=== PATIENT | female | born 1945 | race African-American/Black ===

== ENCOUNTER 2021-02-25 15:46 | Inpatient (IN) | payer MEDICARE, MEDICAID, SELFPAY ==
[2021-02-25] VITALS (17 sets, daily range): BP systolic 134–156; BP diastolic 54–114; PULSE 64–93; RESP 14–18; TEMP 36.6; O2SAT 92–99; BMI 35.9
--- NOTE | ~2021-02-25 | US_ITS ---
EXAMINATION: US venous doppler LE EXAM DATE: 02/26/2021 11:01 INDICATION: Edematous bilateral leg. Bilateral leg pain. TECHNIQUE: Multiple grayscale, color flow and Doppler images of the lower extremity deep venous syste ms bilaterally were obtained and reviewed. There is no prior study for comparison. FINDINGS: RIGHT SIDE Common femoral: -------- Normal. Profunda femoral: ------- Normal. Femoral: Normal. Popliteal: Probable nonocclusive thrombus. Posterior tibial: --------- Normal. Peroneal: Normal. Gastrocnemius: Not visualized. Soleus: Not visualized. Greater saphenous: ----- Normal. Lesser saphenous: ------ Not visualized. LEFT SIDE Common femoral: -------- Normal. Profunda femoral: ------- Normal. Femoral: Normal. Popliteal: Normal. Posterior tibial: --------- Normal. Peroneal: Normal. Gastrocnemius: Not visualized. Soleus: Not visualized. Greater saphenous: ----- Normal. Lesser saphenous: ------ Not visualized. IMPRESSION: 1. Probable nonocclusive right popliteal DVT. 2. No left DVT. I discussed impression with unit nurse Khurram at 02/26/2021 11:28 CDT. Reviewed, dictated and finalized at location A. IMPRESSION: 1. Probable nonocclusive right popliteal DVT. 2. No left DVT. I discussed impression with IM unit nurse Khurram at 02/26/2021 11:28 CDT.
--- NOTE | ~2021-02-25 | XR_ITS ---
EXAMINATION: XR chest 1V portable EXAM DATE: 02/25/2021 17:13 INDICATION: Swollen legs. CHF. TECHNIQUE: Portable AP frontal chest x-ray was obtained. There is no prior study for comparison. FINDINGS: There is cardiomegaly and pulmonary vascular congestion. There is indistinct reticulation w ith a bibasal predominance which may indicate pulmonary edema. Pneumonia not excludable. Small pleura l effusions. No pneumothorax. There are bony degenerative changes. IMPRESSION: Findings consistent with CHF exacerbation. Pneumonia not excludable. Reviewed, dictated and finalized at location A. IMPRESSION: Findings consistent with CHF exacerbation. Pneumonia not excludabl e.
--- NOTE | 2021-02-25 17:02 | ECG_ITS ---
Measurements Intervals [place] Rate: 85 P: [place]: 0 QRS: -5 QRSD: 138 T: 21 QT: 398 QTc: 475 Interpretive Statements SINUS RHYTHM VENTRICULAR COUPLET, ATRIAL AND VENTRICULAR PREMATURE COMPLEXES RIGHT BUNDLE BRANCH BLOCK BASELINE ARTIFACT- V3-V6 ABNORMAL ECG Electronically Signed On 02-25-2021 20:33:48 CDT by Segundo Bass D.O.
[2021-02-25 17:25] LABS: Basophils Percent Auto 0.1 % (0.2-1.2); Eosinophils Absolute Auto 0.1 K/mm3 (0-0.3); Immature Granulocyte Absolute 0.06 K/mm3 (0.00-0.031); Immature Granulocyte Percent A 0.9 % (0-0.5); Lymphocytes Absolute Auto 0.58 K/mm3 (0.9-3.2); Lymphocytes Percent Auto 8.3 % (18.3-44.2); Mean Corpuscular HGB Conc 30.3 g/dl (32-36); Mean Corpuscular Hemoglobin 25.4 pg (26-34); Mean Corpuscular Volume 83.8 fl (80-100); Mean Platelet Volume 11.4 fl (7.4-10.4); Monocytes Absolute Auto 0.7 K/mm3 (0.1-0.6); Monocytes Percent Auto 9.7 % (2.6-8.5); Neutrophils Absolute Auto 5.6 K/mm3 (1.3-6.7); Platelet Count Result 168 k/mm3 (150-375); Red Blood Count 3.94 M/mm3 (4.2-5.4); Red Cell Distribution Width 17.2 % (11.5-14.5)
[2021-02-25] MEDS: FUROSEMIDE INJ 40 MG/4 ML VIAL IV PUSH (17:33)
[2021-02-25 17:36] LABS: Alanine Aminotransferase 19 U/L (4-35); Alkaline Phosphatase 64 U/L (38-126); Anion Gap 5 mmol/L (8-16); Aspartate Amino Transferase 31 U/L (14-36); Bilirubin,Total 0.2 mg/dL (0.2-1.3); Blood Urea Nitrogen 57 mg/dL (7-17); Calcium 8.6 mg/dL (8.4-10.2); Carbon Dioxide 29 mmol/L (22-30); Chloride 106 mmol/L (98-107); Estimated CRCL calculation 36 ml/min; Estimated Glomerular Filt Rate 38; Glucose 123 mg/dL (65-105); Potassium 3.4 mmol/L (3.4-5.0); Sodium 140 mmol/L (137-145)
[2021-02-25 17:39] LABS: INR 0.9; Prothrombin Time 13.1 Seconds (11.1-14.7)
[2021-02-25 17:40] LABS: Partial Thromboplastin Time 29.3 SECONDS (22.3-36.8)
[2021-02-25 17:55] LABS: NT Pro B Type Natriuretic Pept 5660 pg/mL (5-100); Troponin I 0.051 ng/mL (0.000-0.034)
--- NOTE | 2021-02-25 19:19 | ED.GENADULT ---
HPI - General Adult General Chief complaint: Extremity Problem,Nontraumatic Stated complaint: fkuid retention Time Seen by Provider: 02/25/21 16:56 Source: patient, EMS, RN notes reviewed and old records reviewed Mode of arrival: EMS Limitations: no limitations History of Present Illness HPI narrative: Patient is a 76-year-old female who presents to emergency department for evaluation of fluid retention over the course of the last several days has been gaining weight halfway noted that she had gained 10 pounds in the last couple of days and recently increased her 40 mg of Lasix to 80 orally over the last couple of days had discussion with the nurse practitioner from the halfway she is unable to add much history on the patient does note that the patient has history of diastolic heart failure atrial fibrillation. Patient on arrival has no complaints denies any pain is bedridden. Patient notes that she only sees wound care and primary care at the halfway. Patient notes that she has had chronic fluid retention issues in the past requiring diuresis Related Data Allergies Allergy/AdvReac Type Severity Reaction Status Date / Time codeine Allergy Nausea Verified 02/25/21 16:03 Review of Systems Review of Systems: All systems reviewed & are unremarkable except as noted in HPI and below PMFSH Past Medical History Medical History (Updated 02/25/21 @ 19:29 by Freeman Love PA-C) Anemia Atrial fibrillation Chronic ulcer of buttock Diastolic heart failure GI bleeding Hyperlipidemia Hypertension MRSA (methicillin resistant staph aureus) culture positive Obesity Restless leg syndrome Social History Social History (Updated 02/25/21 @ 19:23 by Freeman Love PA-C) Smoking status: Never smoker Living arrangements: halfway Exam Narrative: Exam Narrative: GENERAL: Chronically ill-appearing, obese, and in no acute distress. HEAD: Normocephalic, atraumatic. EYES: PERRLA and EOMI. ENT: Nares clear, no rhinorrhea or epistaxis. Mucous membranes moist. NECK: Supple. No adenopathy or masses. No carotid bruits or JVD CHEST: Clear to auscultation. No respiratory distress. Coarse breath sounds throughout HEART: Regular rate and rhythm. No murmur heard. Normal peripheral pulses. ABDOMEN: Soft, nontender, nondistended EXTREMITIES: Normal range of motion. 4+ edema lower extremities SKIN: Warm, dry, no rash. NEURO: No focal deficits. Alert and oriented x3. Cranial nerves II through XII grossly intact PSYCH: Normal mood and affect. Course Course Emergency Course: Patient evaluated the emergency department with likely heart failure given her history was given Lasix will be brought into the hospital placed in the IMU and will be consulted on by the cardiology and hospitalist service will admit the patient patient hemodynamically stable with ABCs and vital signs stable at this time Consultations Consultation #1: Discussed case with cardiology randy Ramirez who will consult on patient recommends twice daily Lasix 40 mg IV. Discussed case with Luana the hospitalist who is agreed to accept the patient Date: 02/25/21 Time: 19:28 Vital Signs Vital signs: Vital Signs Pulse Rate 77 02/25/21 15:50 Respiratory Rate 17 02/25/21 15:50 Blood Pressure 145/59 H 02/25/21 15:50 Pulse Oximetry 98 02/25/21 15:50 Pulse Rate 77 02/25/21 17:18 Respiratory Rate 17 02/25/21 17:18 Blood Pressure 134/54 L 02/25/21 16:46 Pulse Oximetry 99 02/25/21 17:18 Medical Decision Making [facility] Narrative Medical decision making narrative: Patient with diastolic heart failure will be brought in the hospital for diuresis patient agrees with this plan she denies any pain Vital Signs Vital Signs: Vital Signs Pulse Rate 77 02/25/21 15:50 Respiratory Rate 17 02/25/21 15:50 Blood Pressure 145/59 H 02/25/21 15:50 Pulse Oximetry 98 02/25/21 15:50 Pulse Rate 77 02/25/21 17:18 Respiratory Rate 17
[2021-02-25 20:16] LABS: Cholesterol 115 mg/dL (0-200); HDL Direct 43 mg/dL; Triglycerides 58 mg/dL (<150)
[2021-02-25 20:26] LABS: LDL Cholesterol Direct 61 mg/dL
--- NOTE | 2021-02-25 20:29 | PC.NURSE ---
MICHOACANOAR faxed to IMU department from the ED at 1999.
[2021-02-25 20:32] LABS: Troponin I 0.048 ng/mL (0.000-0.034)
--- NOTE | 2021-02-25 20:35 | PC.NURSE ---
Report given at 2030 by CRYSTAL Diamond through phone call from the ED. All questions answered and plan of care reviewed. This nurse to resume patient care once patient arrives to the floor.
--- NOTE | 2021-02-25 21:32 | ADMGEN ---
This patient, Tegan Martines, was admitted to IMU Room 231-01 at 2045 from the ED. Patient/family oriented to hospital policies and general routines including ID bracelet, bed and alarms, visiting hours, pain management, procedures, bathroom and other care routines, personal items, smoking policy, room service/diet, and visiting hours. Information on how to activate the Rapid Response Team has been discussed. Patient/Family are encouraged to report perceived risks to care and to ask questions if they do not understand what they are told or what they should do.
[2021-02-25 23:37] LABS: Troponin I 0.045 ng/mL (0.000-0.034)
--- NOTE | 2021-02-25 23:51 | PM.IMHP ---
H&P: HPI History of Present Illness Date/Time: 02/25/21 23:51 this is a 76-year-old female patient who has a history of having congestive heart failure. She resides at care center at [facility]. To the emergency room due to increased weight of 10 lb in the last couple days. She also has some fluid retention over the last several days. She recently had her Lasix increased from 40 mg of Lasix to 80 over the last couple days. The patient stated she has not had any decrease in her swelling. The patient also tells me that she has chronic renal failure. Chest x-ray was read as findings consistent With CHF pneumonia not excludable. Patient denies any fever chills. Although she tells me she is coughing up some fontanez sputum as well some green sputum. She does have some increased swelling to her lower extremities. She has about 4+ pitting edema. IV Lasix was given in the emergency room. Cardiology was consulted. Troponins are all level. Her BNP is 5660. Patient's BUN is 57 creatinine 1.6. Patient is being admitted to observation status on 02/25/2021 date of service. Chief Complaint: Edema Review of Systems Review of Systems: All systems reviewed & are unremarkable except as noted in HPI and below Constitutional: Constitutional: Reports as per HPI and Reports no additional constitutional complaints Eyes: Eyes: Reports as per HPI and Reports no additional eye complaints ENT: Reports system reviewed and no additional complaints, except as documented and Reports Normal hearing present Cardiovascular: Cardiovascular: Reports no additional cardiovascular complaints Respiratory: Respiratory: Reports no additional respiratory complaints and Reports no additional respiratory complaints Gastrointestinal: Gastrointestinal: Reports as per HPI and Reports no additional gastrointestinal complaints Musculoskeletal: Musculoskeletal: Reports no additional musculoskeletal complaints Integumentary/Breasts: Skin/Breast: Reports system reviewed and no additional complaints, except as docu and Reports as per HPI Neurologic: Reports system reviewed and no additional complaints, except as documented, Reports as per HPI and Reports Normal hearing present Psychiatric: Psychiatric: Reports no additional psychiatric complaints and Reports as per HPI Endocrine: Endocrine: Reports no additional endocrine complaints Hematologic/Lymphatic: Hematologic/Lymphatic: Reports no additional hematologic/lymphatic complaints Allergic/Immunologic: Allergic/Immunologic: Reports no additional allergic/immunologic complaints [facility] Past Medical History Medical History (Updated 02/26/21 @ 00:16 by Luana Mi NP) Anemia Atrial fibrillation Chronic GERD Chronic renal failure, stage 3 (moderate) Chronic ulcer of buttock Diastolic heart failure GI bleeding Hyperlipidemia Hypertension MRSA (methicillin resistant staph aureus) culture positive Obesity Restless leg syndrome Sarcoidosis Surgical History Surgical History (Updated 02/26/21 @ 00:02 by Luana Mi NP) H/O bilateral cataract extraction H/O hernia repair H/O tubal ligation History of bowel resection History of partial hysterectomy Family History Family History (Updated 02/26/21 @ 00:18 by Luana Mi NP) Mother Stomach cancer Social History Social History (Updated 02/26/21 @ 00:04 by Luana Mi NP) Social History: The patient is . She has 2 children. She resides at care center at [facility]. She is retired from the [employer] office. Lifelong nonsmoker. Does not use any alcohol marijuana or illicit drugs. She is a DNR. Smoking status: Never smoker Second hand tobacco smoke exposure: No Living arrangements: alf Meds Home Medications and Allergies Allergies Allergy/AdvReac Type Severity Reaction Status Date / Time codeine Allergy Nausea Verified 02/25/21 16:03 Vital Signs Vital Signs - 24 hr 02/25/21 15:50 02/25/21
[2021-02-26] VITALS (15 sets, daily range): BP systolic 128–173; BP diastolic 63–87; PULSE 72–106; RESP 14–22; TEMP 36.3–36.6; O2SAT 96–100; BMI 35.8
--- NOTE | 2021-02-26 | ECHO_ITS ---
Patient Info Name: Tegan Martines Age: 76 years : 1945 Gender: Female Ht: 68 in Wt: 236 lbs BSA: 2.31 m2 HR: 70 bpm BP: 150 / 70 mmHg Technical Quality: Good Exam Date: 02/26/2021 9:20 AM Exam Location: [facility] Patient Status: Inpatient Admit Date: 02/25/2021 Staff Ordering Physician: Mamadou Lake MD Childhood Development Teacher: Armani Leonardo, HALLIE, RT Attending Provider: Dianne John MD Exam Type: CA echo doppler color flow Study Info Indications I50.9 - Heart failure, unspecified Complete two-dimensional, color flow and Doppler transthoracic echocardiogram is performed. Strain analysis performed. Summary 1. Complete two-dimensional, color flow and Doppler transthoracic echocardiogram is performed. 2. Left atrial chamber dimension is moderately enlarged. 3. Right atrial chamber dimension is mildly enlarged. 4. The mitral valve has thickened leaflets. 5. There is mild mitral valve regurgitation. 6. mild thickening of the aortic valve leaflets. 7. Left ventricular chamber dimension is normal. 8. Left ventricular wall thickness is mildly increased. 9. Left ventricular systolic function is hyperdynamic with an estimated ejection fraction of 6065.0 %. 10. Grade I diastolic dysfunction of the left ventricle (impaired relaxation pattern). 11. There is mild to moderate tricuspid valve regurgitation. 12. Right ventricular chamber dimension is moderately enlarged. 13. Right ventricular systolic function is reduced. 14. Estimated pulmonary arterial systolic pressure is 38 mmHg. Left Ventricle Left ventricular wall thickness is mildly increased. Left ventricular chamber dimension is normal. Left ventricular systolic function is hyperdynamic with an estimated ejection fraction of 6065.0 %. Grade I diastolic dysfunction of the left ventricle (impaired relaxation pattern). Right Ventricle Right ventricular chamber dimension is moderately enlarged. Right ventricular systolic function is reduced. Left Atria Left atrial chamber dimension is moderately enlarged. Right Atria Right atrial chamber dimension is mildly enlarged. Aortic Valve The aortic valve is trileaflet. mild thickening of the aortic valve leaflets. Mitral Valve The mitral valve has thickened leaflets. There is mild mitral valve regurgitation. Tricuspid Valve There is mild to moderate tricuspid valve regurgitation. Estimated pulmonary arterial systolic pressure is 38 mmHg. Left Ventricular Outflow Tract Name Value Normal LVOT 2D LVOT Diameter 2.0 cm LVOT Doppler LVOT Peak Gradient 4 mmHg LVOT Mean Gradient 2 mmHg LVOT VTI 24 cm LVOT VTI/AV VTI Ratio 0.7 LVOT Stroke Volume 78 ml LVOT CO 6.3 l/min LVOT CI 2.7 l/min/m2 Mitral Valve Name Value Normal
[2021-02-26 05:07] LABS: Hematocrit 29.3 % (37.0-47.0); Hemoglobin 8.9 g/dL (12.0-15.0); Mean Corpuscular HGB Conc 30.4 g/dl (32-36); Mean Corpuscular Hemoglobin 25.3 pg (26-34); Mean Corpuscular Volume 83.2 fl (80-100); Platelet Count Result 150 k/mm3 (150-375); Red Blood Count 3.52 M/mm3 (4.2-5.4); Red Cell Distribution Width 16.8 % (11.5-14.5); White Blood Count 4.4 K/mm3 (4.5-10.0)
[2021-02-26 05:32] LABS: Anion Gap 3 mmol/L (8-16); Blood Urea Nitrogen 53 mg/dL (7-17); Calcium 8.1 mg/dL (8.4-10.2); Carbon Dioxide 30 mmol/L (22-30); Chloride 108 mmol/L (98-107); Estimated CRCL calculation 35 ml/min; Estimated Glomerular Filt Rate 38; Glucose 93 mg/dL (65-105); Magnesium 2.3 mg/dL (1.6-2.3); Potassium 3.1 mmol/L (3.4-5.0); Sodium 141 mmol/L (137-145)
[2021-02-26] MEDS: ENOXAPARIN 40 MG/0.4 ML SYRINGE SUB-Q (08:26)
[2021-02-26] MEDS: FUROSEMIDE INJ 40 MG/4 ML VIAL IV PUSH ×2 (08:26→16:13)
--- NOTE | 2021-02-26 09:33 | PM.CNCAR ---
Assessment and Plan Assessment and plan (1) Chronic renal failure, stage 3 (moderate): Code(s): N18.30 - Chronic kidney disease, stage 3 unspecified Status: Chronic Assessment and Plan: PC and nephrology fu (2) Diastolic heart failure: Code(s): I50.30 - Unspecified diastolic (congestive) heart failure Status: Chronic Assessment and Plan: ECHO preliminary result: normal LV sytolic function, LVH cont gentle diuresis monitor electrolytes and kidney function (3) Hypertension: Code(s): I10 - Essential (primary) hypertension Status: Chronic Assessment and Plan: Initially elevated now better controlled will adjust meds (4) Chronic GERD: Code(s): K21.9 - Gastro-esophageal reflux disease without esophagitis Status: Chronic (5) Elevated troponin: Code(s): R77.8 - Other specified abnormalities of plasma proteins Status: Acute Assessment and Plan: pt was found to have borderline troponin no acute EKG changes no CP flat pattern probably due to underlying CRI (Cr 1.6). (6) Restless leg syndrome: Code(s): G25.81 - Restless legs syndrome Status: Chronic Assessment and Plan: Thank you for consult. Will fu History of Present Illness History of Present Illness Consult date/time: 02/26/21 Mrs. Martines is a pleasant 76 y/o AAF with PMH of HTN who presented to [facility] due to LE edema. Pt states thatshe does have chronic LE edema but recently it was getting worse. She denies CP or SOB. States that her BP was found to be elevated. Previously was admitted to [facility] few months ago due to LLE edema. Had ECHO and stress test at that time which were fine per pt. Was seen by personnel psychologist in hospital but denies fu in office. Pt denies hx of CAD, CHF or CVA. Pt was seen and examined, chart was reviewed, case d/w pt;s nurse. Reason For Visit: CHF exacerbation, acute on chronic heart failure Review of Systems Review of Systems: All systems reviewed & are unremarkable except as noted in HPI and below Constitutional: Constitutional: Reports as per HPI Eyes: Eyes: Reports as per HPI ENT: Reports system reviewed and no additional complaints, except as documented and Reports as per HPI Cardiovascular: Cardiovascular: Reports as per HPI Respiratory: Respiratory: Reports as per HPI Gastrointestinal: Gastrointestinal: Reports as per HPI Genitourinary: Genitourinary: Reports as per HPI Musculoskeletal: Musculoskeletal: Reports as per HPI [facility] Past Medical History Medical History (Updated 02/26/21 @ 00:16 by Luana Mi NP) Anemia Atrial fibrillation Chronic GERD Chronic renal failure, stage 3 (moderate) Chronic ulcer of buttock Diastolic heart failure GI bleeding Hyperlipidemia Hypertension MRSA (methicillin resistant staph aureus) culture positive Obesity Restless leg syndrome Sarcoidosis Surgical History Surgical History (Updated 02/26/21 @ 00:02 by Luana Mi NP) H/O bilateral cataract extraction H/O hernia repair H/O tubal ligation History of bowel resection History of partial hysterectomy Family History Family History Mother Stomach cancer Social History Social History (Updated 02/26/21 @ 00:04 by Luana Mi NP) Social History: The patient is . She has 2 children. She resides at [facility]. She is retired from the [place] [employer]. Lifelong nonsmoker. Does not use any alcohol marijuana or illicit drugs. She is a DNR. Smoking status: Never smoker Second hand tobacco smoke exposure: No Alcohol intake: never Substance use: never Substance use type: does not use Living arrangements: [facility]p Gender identity (if verbalized by the patient): Female Spiritual care concerns: No Meds Home Medications and Allergies Home Medications Med
[2021-02-26] MEDS: POTASSIUM CHLORIDE 20 MEQ PACKET (FOR LIQUID) PO (12:06)
[2021-02-26] MEDS: MAGNESIUM OXIDE 400 MG TABLET PO (12:08)
[2021-02-26] MEDS: SILVERGEL (ELTA) 45 ML 1 APPLIC TOPICAL ×2 (14:45→19:00)
--- NOTE | 2021-02-26 17:05 | PM.IMPN ---
Progress Note: A&P Assessment and Plan (1) Diastolic heart failure: Code(s): I50.30 - Unspecified diastolic (congestive) heart failure Status: Chronic (2) Chronic GERD: Code(s): K21.9 - Gastro-esophageal reflux disease without esophagitis Status: Chronic (3) Restless leg syndrome: Code(s): G25.81 - Restless legs syndrome Status: Chronic (4) Hypertension: Code(s): I10 - Essential (primary) hypertension Status: Chronic (5) Hyperlipidemia: Code(s): E78.5 - Hyperlipidemia, unspecified Status: Chronic (6) Chronic ulcer of buttock: Code(s): L98.419 - Non-pressure chronic ulcer of buttock with unspecified severity Status: Chronic (7) Elevated troponin: Code(s): R77.8 - Other specified abnormalities of plasma proteins Status: Acute (8) Chronic renal failure, stage 3 (moderate): Code(s): N18.30 - Chronic kidney disease, stage 3 unspecified Status: Chronic Additional Plan 02/25/21 An echo has been ordered for the patient. I do not see a current home medication list. Patient was placed on IV Lasix b.i.d.. Will also do venous Dopplers and she has bilateral edema. She has 4+ pitting edema to her lower extremities. She said she has had a weight gain of 10 lb for last couple days. Strict I&O and she has a Hines catheter. The patient stated that she was told that she does have chronic renal failure. I am not sure her baseline is since she is not had any of her medical problems addressed here in the past. The patient tells me that she typically goes to [facility]. Troponins flat, could be related to her chronic renal failure or could be related to the congestive heart failure. Ulceration; the patient has a history of sarcoidosis and had a nodule on her buttocks that just never healed. Cardiology consulted for CHF 02/26/21 cont diuresis for CHF, cont wound care, chronic diseases otherwise controlled, cont current care, home meds continued Subjective Date/time seen: 02/26/21 17:05 pt doing ok complains of L breast and L abd swelling, thinks its because she always lays on that side. no other complaints Exam Narrative: Exam Narrative: GEN: NAD, AAOx3, cooperative, obese HEENT: NCAT, MMM, EOMI Neck: no JVD Heart: S1S2 RRR Lungs: CTA B/l Abd: soft, NT, ND, bowel sounds normoactive edema Ext: moves all, no cyanosis, no clubbing, 3+ edema Neuro: CN inact AAOx3 neuro exam limited Psych: mood and affect congruent Objective Data Vital Signs Vital Signs: Vital Signs - 24 hr 02/25/21 17:18 02/25/21 19:01 02/25/21 19:16 Temperature Pulse Rate 77 76 68 Respiratory Rate 17 14 15 Blood Pressure 134/78 141/69 H Pulse Oximetry 99 98 99 02/25/21 19:31 02/25/21 19:46 02/25/21 20:01 Temperature Pulse Rate 72 87 64 Respiratory Rate 15 15 15 Blood Pressure 143/59 H 139/86 136/60 Pulse Oximetry 98 97 98 02/25/21 20:16 02/25/21 20:31 02/25/21 20:41 Temperature Pulse Rate 74 69 79 Respiratory Rate 14 14 Blood Pressure 138/81 135/69 Pulse Oximetry 97 98 02/25/21 20:45 02/25/21 22:00 02/26/21 00:00 Temperature 97.9 F Pulse Rate 93 84 80 Respiratory Rate 18 Blood Pressure 155/78 H Pulse Oximetry 98 02/26/21 00:20 02/26/21 02:00 02/26/21 04:00 Temperature 97.9 F 97.9 F Pulse Rate 106 H 88 73 Respiratory Rate 22 H 16 Blood Pressure 168/74 H 150/70 H Pulse Oximetry 96 100 02/26/21 06:00 02/26/21 08:00 02/26/21 10:00 Temperature 97.3 F L Pulse Rate 88 79 98 Respiratory Rate 14 Blood Pressure 173/87 H Pulse Oximetry 100 02/26/21 12:00 02/26/21 14:00 02/26/21 16:00 Temperature 97.6 F 97.4 F L Pulse Rate 98 86 82 Respiratory Rate 16 18 Blood Pressure 128/72 151/65 H Pulse Oximetry 99 96 Intake/Output Intake/Output: Intake & Output 02/23/21 02/24/21 02/25/21 02/26/21 23:59 23:59 23:59 23:59 Intake Total 240 Output Total 700 3950 Balance
[2021-02-26 17:48] LABS: Add Urine Microscopic? YES; Appearance Urine Clear (Clear); Bacteria Urine Trace /hpf; Bilirubin Urine Negative (Negative); Blood Urine 2+ (Negative); Color Urine Straw (Yellow); Glucose Urine UA Negative (Negative); Ketones Urine Negative (Negative); Leukocyte Esterase Ur 2+ LEU/UL (Negative); Mucus Urine Rare /lpf; Nitrate Urine Negative (Negative); Protein Urine Negative (Negative); RBC Urine 51-75 /hpf (0-2); Specific Grav Ur 1.009 (1.001-1.035); Squamous Epithelial Cell Urine Rare /hpf (Few); Urobilinogen Urine Negative mg/dL (<2.0); WBC Urine 21-30 /hpf
[2021-02-26] MEDS: CLINDAMYCIN HCL 150 MG CAP 300 MG PO ×2 (18:51→23:55)
[2021-02-26] MEDS: ACETAMINOPHEN 325 MG TABLET 650 MG PO (18:52)
[2021-02-26] MEDS: SILVER SULFADIAZINE 1% CR 400 GM JAR (*BKC) 1 APPLIC TOPICAL (19:00)
[2021-02-26] MEDS: ENOXAPARIN 120 MG/0.8 ML SYRINGE 110 MG SUB-Q (19:57)
[2021-02-26] MEDS: ATORVASTATIN 40 MG TABLET PO (21:22)
[2021-02-26] MEDS: ESCITALOPRAM OXALATE 10 MG TABLET PO (21:26)
[2021-02-26] MEDS: metroNIDAZOLE 250 MG TABLET 500 MG PO (21:26)
[2021-02-26] MEDS: METOPROLOL TARTRATE 25 MG TABLET 75 MG PO (21:27)
[2021-02-26] MEDS: PANTOPRAZOLE SODIUM IV 40 MG VIAL IV PUSH (21:28)
[2021-02-27] VITALS (18 sets, daily range): BP systolic 128–154; BP diastolic 57–68; PULSE 69–88; RESP 14–22; TEMP 35.7–37.6; O2SAT 95–98
[2021-02-27 05:41] LABS: Basophils Percent Auto 0.5 % (0.2-1.2); Hematocrit 28.7 % (37.0-47.0); Hemoglobin 8.9 g/dL (12.0-15.0); Immature Granulocyte Absolute 0.04 K/mm3 (0.00-0.031); Lymphocytes Absolute Auto 0.77 K/mm3 (0.9-3.2); Lymphocytes Percent Auto 19.2 % (18.3-44.2); Mean Corpuscular Volume 80.6 fl (80-100); Mean Platelet Volume 10.6 fl (7.4-10.4); Monocytes Absolute Auto 0.5 K/mm3 (0.1-0.6); Monocytes Percent Auto 13.5 % (2.6-8.5); Neutrophils Absolute Auto 2.6 K/mm3 (1.3-6.7); Neutrophils Percent Auto 64.8 % (45.5-73.1); Platelet Count Result 158 k/mm3 (150-375); Red Blood Count 3.56 M/mm3 (4.2-5.4); Red Cell Distribution Width 16.6 % (11.5-14.5)
[2021-02-27 05:54] LABS: Anion Gap 4 mmol/L (8-16); Blood Urea Nitrogen 51 mg/dL (7-17); Calcium 8.3 mg/dL (8.4-10.2); Carbon Dioxide 28 mmol/L (22-30); Chloride 108 mmol/L (98-107); Estimated CRCL calculation 46 ml/min; Estimated Glomerular Filt Rate 53; Glucose 85 mg/dL (65-105); Magnesium 2.2 mg/dL (1.6-2.3); Potassium 3.4 mmol/L (3.4-5.0); Sodium 140 mmol/L (137-145)
[2021-02-27] MEDS: CLINDAMYCIN HCL 150 MG CAP 300 MG PO ×3 (06:40→18:50)
[2021-02-27] MEDS: ENOXAPARIN 120 MG/0.8 ML SYRINGE 110 MG SUB-Q (06:40)
[2021-02-27] MEDS: ACETAMINOPHEN 325 MG TABLET 650 MG PO ×3 (07:05→18:52)
[2021-02-27] MEDS: allopurinoL 150 MG TABLET FEED TUBE (09:49)
[2021-02-27] MEDS: FUROSEMIDE 80 MG TABLET PO ×2 (09:49→16:23)
[2021-02-27] MEDS: ASPIRIN 81 MG CHEWABLE TABLET PO (09:49)
[2021-02-27] MEDS: EZETIMIBE 10 MG TABLET PO (09:49)
[2021-02-27] MEDS: GABAPENTIN 100 MG CAPSULE PO (09:50)
[2021-02-27] MEDS: hydrALAZINE HCL 50 MG TABLET 100 MG PO ×3 (09:50→16:24)
[2021-02-27] MEDS: METOPROLOL TARTRATE 25 MG TABLET 75 MG PO ×2 (09:51→20:53)
[2021-02-27] MEDS: metroNIDAZOLE 250 MG TABLET 500 MG PO ×2 (09:51→20:54)
[2021-02-27] MEDS: MAGNESIUM OXIDE 400 MG TABLET PO (09:51)
[2021-02-27] MEDS: predniSONE 20 MG TABLET PO (09:52)
[2021-02-27] MEDS: PANTOPRAZOLE SODIUM IV 40 MG VIAL IV PUSH ×2 (09:52→20:54)
--- NOTE | 2021-02-27 11:07 | PM.PNCARD ---
Progress Note: A&P Assessment and Plan (1) Chronic renal failure, stage 3 (moderate): Code(s): N18.30 - Chronic kidney disease, stage 3 unspecified Status: Chronic Assessment and Plan: PC and nephrology fu (2) Diastolic heart failure: Code(s): I50.30 - Unspecified diastolic (congestive) heart failure Status: Chronic Assessment and Plan: ECHO result: normal LV sytolic function, LVH cont gentle diuresis monitor electrolytes and kidney function (3) Hypertension: Code(s): I10 - Essential (primary) hypertension Status: Chronic Assessment and Plan: Initially elevated now better controlled will adjust meds (4) Chronic GERD: Code(s): K21.9 - Gastro-esophageal reflux disease without esophagitis Status: Chronic (5) Elevated troponin: Code(s): R77.8 - Other specified abnormalities of plasma proteins Status: Acute Assessment and Plan: pt was found to have borderline troponin no acute EKG changes no CP flat pattern probably due to underlying CRI (Cr 1.6). (6) Restless leg syndrome: Code(s): G25.81 - Restless legs syndrome Status: Chronic (7) DVT (deep venous thrombosis): Code(s): I82.409 - Acute embolism and thrombosis of unspecified deep veins of unspecified lower extremity Status: Acute Assessment and Plan: currently she is on Lovenox was switched to Eliquis 10 mg twice a day for 1 week and then cut down to 5 twice a day Subjective Date/time seen: 02/27/21 11:07 She feels better today, no chest pain shortness breath is better, she has leg pain and leg swelling venous Doppler showed DVT Exam Const: General: alert and awake; No acute distress HENMT: Head: normal to inspection and atraumatic Ears: hearing grossly normal bilaterally Face and sinus: normal facial exam Eyes: General: appearance normal, both eyes and all related structures Pupils: Equal, round and reactive pupils present EOM: EOMs intact bilaterally Neck: Neck: normal visual inspection and no JVD Chest: Chest palpation & inspection: normal inspection of the chest Resp: Effort & Inspection: normal respiratory effort and no respiratory distress Auscultation: clear to auscultation bilaterally Cardio: Jugular venous distension: no JVD Rate: regular rate Heart sounds: S1 normal heart sound present, S2 normal heart sound present and no murmurs GI: Inspection: normal to inspection Auscultation: normal bowel sounds Skin: General skin exam: normal color Neuro: Cranial nerves: Yes Equal, round and reactive pupils present Extrem: General: edema (mild efren) and other Objective Data Vital Signs Vital Signs: Vital Signs - 24 hr 02/26/21 12:00 02/26/21 14:00 02/26/21 16:00 Temperature 36.4 C 36.3 C L Pulse Rate 98 86 86 Respiratory Rate 16 18 Blood Pressure 128/72 151/65 H Pulse Oximetry 99 96 02/26/21 18:00 02/26/21 19:23 02/26/21 20:00 Temperature 36.3 C L Pulse Rate 77 97 85 Respiratory Rate 20 Blood Pressure 163/63 H Pulse Oximetry 100 02/26/21 21:27 02/26/21 22:00 02/27/21 00:00 Temperature 36.9 C Pulse Rate 90 81 83 Respiratory Rate 16 Blood Pressure 128/66 Pulse Oximetry 95 02/27/21 02:00 02/27/21 04:00 02/27/21 06:00 Temperature 37.2 C Pulse Rate 69 75 71 Respiratory Rate 14 Blood Pressure 144/63 H Pulse Oximetry 96 02/27/21 08:00 02/27/21 08:39 02/27/21 09:51 Temperature 36.1 C L Pulse Rate 74 70 76 Respiratory Rate 18 Blood Pressure 154/57 H Pulse Oximetry 97 Intake/Output Intake/Output: Intake & Output 02/24/21 02/25/21 02/26/21 02/27/21 23:59 23:59 23:59 23:59 Intake Total 240 340 Output Total 212 0248 1999 [facility] -[phone] Meds/Results Medications: Active Medications Generic Name Dose Route Start Last Admin Trade Name Freq PRN Reason Stop Dose Admin Acetaminophen 650 mg 02/25/21 19:37 02/27/21 07:05 Acetamino
--- NOTE | 2021-02-27 12:33 | PM.IMPN ---
Progress Note: A&P Assessment and Plan (1) DVT (deep venous thrombosis): Code(s): I82.409 - Acute embolism and thrombosis of unspecified deep veins of unspecified lower extremity Status: Acute (2) Chronic renal failure, stage 3 (moderate): Code(s): N18.30 - Chronic kidney disease, stage 3 unspecified Status: Chronic (3) Diastolic heart failure: Code(s): I50.30 - Unspecified diastolic (congestive) heart failure Status: Chronic (4) Chronic GERD: Code(s): K21.9 - Gastro-esophageal reflux disease without esophagitis Status: Chronic (5) Restless leg syndrome: Code(s): G25.81 - Restless legs syndrome Status: Chronic (6) Atrial fibrillation: Code(s): I48.91 - Unspecified atrial fibrillation Status: Chronic (7) Sarcoidosis: Code(s): D86.9 - Sarcoidosis, unspecified Status: Chronic (8) Hypertension: Code(s): I10 - Essential (primary) hypertension Status: Chronic (9) Hyperlipidemia: Code(s): E78.5 - Hyperlipidemia, unspecified Status: Chronic (10) Chronic ulcer of buttock: Code(s): L98.419 - Non-pressure chronic ulcer of buttock with unspecified severity Status: Chronic (11) Elevated troponin: Code(s): R77.8 - Other specified abnormalities of plasma proteins Status: Acute Additional Plan 02/25/21 An echo has been ordered for the patient. I do not see a current home medication list. Patient was placed on IV Lasix b.i.d.. Will also do venous Dopplers and she has bilateral edema. She has 4+ pitting edema to her lower extremities. She said she has had a weight gain of 10 lb for last couple days. Strict I&O and she has a Hines catheter. The patient stated that she was told that she does have chronic renal failure. I am not sure her baseline is since she is not had any of her medical problems addressed here in the past. The patient tells me that she typically goes to [facility]. Troponins flat, could be related to her chronic renal failure or could be related to the congestive heart failure. Ulceration; the patient has a history of sarcoidosis and had a nodule on her buttocks that just never healed. Cardiology consulted for CHF 02/26/21 cont diuresis for CHF, cont wound care, chronic diseases otherwise controlled, cont current care, home meds continued 02/27/21 DVT LMWH to OAC, cardio following, cont diuresis pt -5 to 6L , cont wound care, anticipate transfer back to facility in a day or 2, cont current care, transfer from stepdown to telemetry floor Subjective Date/time seen: 02/27/21 12:33 pt doing ok, no complaints Exam Narrative: Exam Narrative: GEN: NAD, AAOx3, cooperative, obese HEENT: NCAT, MMM, EOMI Neck: no JVD Heart: S1S2 RRR Lungs: CTA B/l Abd: soft, NT, ND, bowel sounds normoactive Ext: moves all, no cyanosis, no clubbing, 2+ edema Neuro: CN inact AAOx3 neuro exam limited Psych: mood and affect congruent Objective Data Vital Signs Vital Signs: Vital Signs - 24 hr 02/26/21 14:00 02/26/21 16:00 02/26/21 18:00 Temperature 97.4 F L Pulse Rate 86 86 77 Respiratory Rate 18 Blood Pressure 151/65 H Pulse Oximetry 96 02/26/21 19:23 02/26/21 20:00 02/26/21 21:27 Temperature 97.4 F L Pulse Rate 97 85 90 Respiratory Rate 20 Blood Pressure 163/63 H Pulse Oximetry 100 02/26/21 22:00 02/27/21 00:00 02/27/21 02:00 Temperature 98.4 F Pulse Rate 81 83 69 Respiratory Rate 16 Blood Pressure 128/66 Pulse Oximetry 95 02/27/21 04:00 02/27/21 06:00 02/27/21 08:00 Temperature 98.9 F Pulse Rate 75 71 76 Respiratory Rate 14 18 Blood Pressure 144/63 H Pulse Oximetry 96 97 02/27/21 08:39 02/27/21 09:51 02/27/21 10:00 Temperature 96.9 F L Pulse Rate 70 76 75 Respiratory Rate 18 Blood Pressure 154/57 H Pulse Oximetry 97 02/27/21 12:23 Temperature 96.2 F L Pulse Rate 74 Respiratory Rate 20 Blood
[2021-02-27] MEDS: SILVER SULFADIAZINE 1% CR 400 GM JAR (*BKC) 1 APPLIC TOPICAL ×2 (16:17→16:51)
[2021-02-27] MEDS: LIDOCAINE 5% PATCH 1 PATCH TRANSDERM ×2 (16:17)
[2021-02-27] MEDS: SILVERGEL (ELTA) 45 ML 1 APPLIC TOPICAL (16:51)
--- NOTE | 2021-02-27 19:29 | ECG_ITS ---
Measurements Intervals [place] Rate: 78 P: NE: 0 QRS: -5 QRSD: 140 T: -13 QT: 395 QTc: 451 Interpretive Statements SINUS RHYTHM WITH SINUS ARRHYTHMIA ATRIAL PREMATURE COMPLEXES RIGHT BUNDLE BRANCH BLOCK BASELINE ARTIFACT- I, III, AVR, AVL ABNORMAL ECG Electronically Signed On 02-28-2021 6:56:33 CDT by Segundo Bass D.O.
[2021-02-27] MEDS: APIXABAN 5 MG TABLET 10 MG PO (20:55)
[2021-02-27] MEDS: ATORVASTATIN 40 MG TABLET PO (20:55)
[2021-02-27] MEDS: ESCITALOPRAM OXALATE 10 MG TABLET PO (21:04)
--- NOTE | 2021-02-27 21:59 | PC.NURSE ---
This patient to transfer to 3 med-surg room 332. Patient to remain on telemetry monitoring.
--- NOTE | 2021-02-27 22:00 | PC.NURSE ---
SBAR report sent to 3 med-surg at 2158 p.m.
--- NOTE | 2021-02-27 22:19 | PC.NURSE ---
SBAR received by 3 med-surg. Report called at 0039 and given to CRYSTAL Munoz. All questions answered and plan of care reviewed. Patient to go to med-surg room 332 with tele.
--- NOTE | 2021-02-27 22:23 | PC.NURSE ---
Patient transferred to 3 med-surg room 332 at 2224 p.m. All belongings and medication sent with patient to receiving unit. Patient transported by bed.
--- NOTE | 2021-02-27 22:25 | PC.NURSE ---
This patient, Tegan Martines, was received from imu on 02/27/21 at 2234. Patient/family oriented to unit policies and routines
[2021-02-28] VITALS (9 sets, daily range): BP systolic 119–168; BP diastolic 65–89; PULSE 74–101; RESP 16–18; TEMP 36.6–37.3; O2SAT 92–99
[2021-02-28] MEDS: CLINDAMYCIN HCL 150 MG CAP 300 MG PO ×4 (00:12→17:26)
[2021-02-28] MEDS: ACETAMINOPHEN 325 MG TABLET 650 MG PO ×3 (00:13→17:25)
[2021-02-28 06:22] LABS: Hematocrit 27.7 % (37.0-47.0); Hemoglobin 8.6 g/dL (12.0-15.0); Mean Corpuscular Hemoglobin 24.8 pg (26-34); Mean Corpuscular Volume 79.8 fl (80-100); Mean Platelet Volume 10.3 fl (7.4-10.4); Platelet Count Result 158 k/mm3 (150-375); Red Blood Count 3.47 M/mm3 (4.2-5.4); Red Cell Distribution Width 16.7 % (11.5-14.5); White Blood Count 4.1 K/mm3 (4.5-10.0)
[2021-02-28 06:40] LABS: Anion Gap 0 mmol/L (8-16); Blood Urea Nitrogen 53 mg/dL (7-17); Calcium 8.4 mg/dL (8.4-10.2); Carbon Dioxide 32 mmol/L (22-30); Chloride 107 mmol/L (98-107); Estimated CRCL calculation 43 ml/min; Estimated Glomerular Filt Rate 48; Glucose 95 mg/dL (65-105); Magnesium 2.2 mg/dL (1.6-2.3); Potassium 3.1 mmol/L (3.4-5.0); Sodium 139 mmol/L (137-145)
[2021-02-28] MEDS: allopurinoL 150 MG TABLET FEED TUBE (08:27)
[2021-02-28] MEDS: APIXABAN 5 MG TABLET 10 MG PO (08:27)
[2021-02-28] MEDS: ASPIRIN 81 MG CHEWABLE TABLET PO (08:27)
[2021-02-28] MEDS: EZETIMIBE 10 MG TABLET PO (08:28)
[2021-02-28] MEDS: FUROSEMIDE 80 MG TABLET PO ×2 (08:28→17:25)
[2021-02-28] MEDS: hydrALAZINE HCL 50 MG TABLET 100 MG PO ×3 (08:28→17:25)
[2021-02-28] MEDS: GABAPENTIN 100 MG CAPSULE PO (08:28)
[2021-02-28] MEDS: LIDOCAINE 5% PATCH 1 PATCH TRANSDERM ×2 (08:29)
[2021-02-28] MEDS: MAGNESIUM OXIDE 400 MG TABLET PO (08:29)
[2021-02-28] MEDS: metroNIDAZOLE 250 MG TABLET 500 MG PO (08:30)
[2021-02-28] MEDS: METOPROLOL TARTRATE 25 MG TABLET 75 MG PO (08:30)
[2021-02-28] MEDS: predniSONE 20 MG TABLET PO (08:31)
[2021-02-28] MEDS: PANTOPRAZOLE SODIUM IV 40 MG VIAL IV PUSH (08:31)
[2021-02-28] MEDS: SILVERGEL (ELTA) 45 ML 1 APPLIC TOPICAL (08:31)
[2021-02-28] MEDS: SILVER SULFADIAZINE 1% CR 400 GM JAR (*BKC) 1 APPLIC TOPICAL (08:41)
--- NOTE | 2021-02-28 11:08 | PM.PNCARD ---
Progress Note: A&P Assessment and Plan (1) Chronic renal failure, stage 3 (moderate): Code(s): N18.30 - Chronic kidney disease, stage 3 unspecified Status: Chronic Assessment and Plan: PC and nephrology fu (2) Diastolic heart failure: Code(s): I50.30 - Unspecified diastolic (congestive) heart failure Status: Chronic Assessment and Plan: ECHO result: normal LV sytolic function, LVH cont gentle diuresis monitor electrolytes and kidney function (3) Hypertension: Code(s): I10 - Essential (primary) hypertension Status: Chronic Assessment and Plan: Initially elevated now better controlled (4) Chronic GERD: Code(s): K21.9 - Gastro-esophageal reflux disease without esophagitis Status: Chronic (5) Elevated troponin: Code(s): R77.8 - Other specified abnormalities of plasma proteins Status: Acute Assessment and Plan: pt was found to have borderline troponin no acute EKG changes no CP flat pattern probably due to underlying CRI (Cr 1.6). (6) Restless leg syndrome: Code(s): G25.81 - Restless legs syndrome Status: Chronic (7) DVT (deep venous thrombosis): Code(s): I82.409 - Acute embolism and thrombosis of unspecified deep veins of unspecified lower extremity Status: Acute Assessment and Plan: currently she is on Lovenox was switched to Eliquis 10 mg twice a day for 1 week and then cut down to 5 twice a day (8) Paroxysmal atrial fibrillation: Code(s): I48.0 - Paroxysmal atrial fibrillation Status: Acute Assessment and Plan: now rate is well controlled, continue with Eliquis and metoprolol Subjective Date/time seen: 02/28/21 11:08 She feels okay today, no more chest pain or shortness of breath, leg pain and leg swelling is much better now. She had episode of tachycardia last night but now she is in AFib with well-controlled rate Exam Const: General: alert and awake; No acute distress HENMT: Head: normal to inspection and atraumatic Ears: hearing grossly normal bilaterally Face and sinus: normal facial exam Eyes: General: appearance normal, both eyes and all related structures Pupils: Equal, round and reactive pupils present EOM: EOMs intact bilaterally Neck: Neck: normal visual inspection and no JVD Chest: Chest palpation & inspection: normal inspection of the chest Resp: Effort & Inspection: normal respiratory effort and no respiratory distress Auscultation: clear to auscultation bilaterally Cardio: Jugular venous distension: no JVD Rate: regular rate Heart sounds: S1 normal heart sound present, S2 normal heart sound present and no murmurs GI: Inspection: normal to inspection Auscultation: normal bowel sounds Skin: General skin exam: normal color Neuro: Cranial nerves: Yes Equal, round and reactive pupils present Extrem: General: edema (mild efren) and other Objective Data Vital Signs Vital Signs: Vital Signs - 24 hr 02/27/21 12:00 02/27/21 12:23 02/27/21 14:00 Temperature 35.7 C L Pulse Rate 74 74 88 Respiratory Rate 20 20 Blood Pressure 136/60 Pulse Oximetry 97 97 02/27/21 16:00 02/27/21 16:28 02/27/21 19:54 Temperature 36.0 C L 36.2 C L Pulse Rate 88 81 78 Respiratory Rate 22 H 15 Blood Pressure 132/65 146/67 H Pulse Oximetry 98 97 02/27/21 20:00 02/27/21 20:53 02/27/21 22:00 Temperature Pulse Rate 81 81 78 Respiratory Rate Blood Pressure Pulse Oximetry 02/27/21 22:25 02/28/21 00:00 02/28/21 04:00 Temperature 37.6 C H Pulse Rate 70 74 83 Respiratory Rate 18 Blood Pressure 148/68 H Pulse Oximetry 98 02/28/21 06:00 02/28/21 08:00 02/28/21 08:30 Temperature 37.3 C Pulse Rate 84 75 75 Respiratory Rate 18 Blood Pressure 168/89 H Pulse Oximetry 99 02/28/21 09:49 Temperature Pulse Rate Respiratory Rate Blood Pressure Pulse Oximetry 97 Intake/Output Intake/Output: Intake &
--- NOTE | 2021-02-28 16:08 | PM.IMPN ---
Progress Note: A&P Assessment and Plan (1) Paroxysmal atrial fibrillation: Code(s): I48.0 - Paroxysmal atrial fibrillation Status: Acute (2) DVT (deep venous thrombosis): Code(s): I82.409 - Acute embolism and thrombosis of unspecified deep veins of unspecified lower extremity Status: Acute (3) Chronic renal failure, stage 3 (moderate): Code(s): N18.30 - Chronic kidney disease, stage 3 unspecified Status: Chronic (4) Diastolic heart failure: Code(s): I50.30 - Unspecified diastolic (congestive) heart failure Status: Chronic (5) Chronic GERD: Code(s): K21.9 - Gastro-esophageal reflux disease without esophagitis Status: Chronic (6) Restless leg syndrome: Code(s): G25.81 - Restless legs syndrome Status: Chronic (7) Atrial fibrillation: Code(s): I48.91 - Unspecified atrial fibrillation Status: Chronic (8) Sarcoidosis: Code(s): D86.9 - Sarcoidosis, unspecified Status: Chronic (9) Hypertension: Code(s): I10 - Essential (primary) hypertension Status: Chronic (10) Hyperlipidemia: Code(s): E78.5 - Hyperlipidemia, unspecified Status: Chronic (11) Chronic ulcer of buttock: Code(s): L98.419 - Non-pressure chronic ulcer of buttock with unspecified severity Status: Chronic (12) Elevated troponin: Code(s): R77.8 - Other specified abnormalities of plasma proteins Status: Acute Additional Plan 02/25/21 An echo has been ordered for the patient. I do not see a current home medication list. Patient was placed on IV Lasix b.i.d.. Will also do venous Dopplers and she has bilateral edema. She has 4+ pitting edema to her lower extremities. She said she has had a weight gain of 10 lb for last couple days. Strict I&O and she has a Hines catheter. The patient stated that she was told that she does have chronic renal failure. I am not sure her baseline is since she is not had any of her medical problems addressed here in the past. The patient tells me that she typically goes to [facility]. Troponins flat, could be related to her chronic renal failure or could be related to the congestive heart failure. Ulceration; the patient has a history of sarcoidosis and had a nodule on her buttocks that just never healed. Cardiology consulted for CHF 02/26/21 cont diuresis for CHF, cont wound care, chronic diseases otherwise controlled, cont current care, home meds continued 02/27/21 DVT LMWH to OAC, cardio following, cont diuresis pt -5 to 6L , cont wound care, anticipate transfer back to facility in a day or 2, cont current care, transfer from stepdown to telemetry floor 02/28/21 pt doing well has been seen by cardiology -8L +, afib rate controlled, pt is on eliquis for new dx of partially occlusive thrombus/afib. dispo transfer back to [place] facility to receive ongoing wound care. Subjective Date/time seen: 02/28/21 16:08 pt doing ok, spoke w Cardiology may return to living facility, RN notified, attempt to followup w weekend caregiver unsuccessful Exam Narrative: Exam Narrative: GEN: NAD, cooperative , obese HEENT: NCAT, MMM, EOMI Neck: no JVD Lungs: Symmetric chest rise no use of accessory muscles Abd: soft, NT, ND, bowel sounds normoactive Ext: moves all, no cyanosis, no clubbing, 2+ pitting edema Neuro: alert and oriented x3, no focal neurological deficits, cranial nerves intact Psych: mood and affect congruent Objective Data Vital Signs Vital Signs: Vital Signs - 24 hr 02/27/21 16:28 02/27/21 19:54 02/27/21 20:00 Temperature 96.8 F L 97.2 F L Pulse Rate 81 78 81 Respiratory Rate 22 H 15 Blood Pressure 132/65 146/67 H Pulse Oximetry 98 97 02/27/21 20:53 02/27/21 22:00 02/27/21 22:25 Temperature 99.7 F H Pulse Rate 81 78 70 Respiratory Rate 18 Blood Pressure 148/68 H Pulse Oximetry 98 02/28/21 00:00 02/28/21 04:00 02/28/21 06:00 Temperature 99
--- NOTE | 2021-02-28 16:35 | PC.NURSE ---
Report called to [facility] at [facility].
--- NOTE | 2021-02-28 18:37 | PM.DS ---
DS: Admitting Diagnosis Admitting Diagnosis Admitting Diagnosis: (1) Diastolic heart failure: Code(s): I50.30 - Unspecified diastolic (congestive) heart failure Status: Chronic (2) Chronic GERD: Code(s): K21.9 - Gastro-esophageal reflux disease without esophagitis Status: Chronic Assessment and Plan: (3) Restless leg syndrome: Code(s): G25.81 - Restless legs syndrome Status: Chronic Assessment and Plan: (4) Hypertension: Code(s): I10 - Essential (primary) hypertension Status: Chronic Assessment and Plan: (5) Hyperlipidemia: Code(s): E78.5 - Hyperlipidemia, unspecified Status: Chronic Assessment and Plan: (6) Chronic ulcer of buttock: Code(s): L98.419 - Non-pressure chronic ulcer of buttock with unspecified severity Status: Chronic Assessment and Plan: (7) Elevated troponin: Code(s): R77.8 - Other specified abnormalities of plasma proteins Status: Acute Assessment and Plan: (8) Chronic renal failure, stage 3 (moderate): Code(s): N18.30 - Chronic kidney disease, stage 3 unspecified Status: Chronic DS: Discharge Diagnosis Discharge Diagnosis (1) Paroxysmal atrial fibrillation: Code(s): I48.0 - Paroxysmal atrial fibrillation Status: Acute (2) DVT (deep venous thrombosis): Code(s): I82.409 - Acute embolism and thrombosis of unspecified deep veins of unspecified lower extremity Status: Acute (3) Chronic renal failure, stage 3 (moderate): Code(s): N18.30 - Chronic kidney disease, stage 3 unspecified Status: Chronic (4) Diastolic heart failure: Code(s): I50.30 - Unspecified diastolic (congestive) heart failure Status: Chronic (5) Chronic GERD: Code(s): K21.9 - Gastro-esophageal reflux disease without esophagitis Status: Chronic (6) Restless leg syndrome: Code(s): G25.81 - Restless legs syndrome Status: Chronic (7) Sarcoidosis: Code(s): D86.9 - Sarcoidosis, unspecified Status: Chronic (8) Hypertension: Code(s): I10 - Essential (primary) hypertension Status: Chronic (9) Hyperlipidemia: Code(s): E78.5 - Hyperlipidemia, unspecified Status: Chronic (10) Chronic ulcer of buttock: Code(s): L98.419 - Non-pressure chronic ulcer of buttock with unspecified severity Status: Chronic DS: Summary Hospital Course Hospital Course: 02/25/21 An echo has been ordered for the patient. I do not see a current home medication list. Patient was placed on IV Lasix b.i.d.. Will also do venous Dopplers and she has bilateral edema. She has 4+ pitting edema to her lower extremities. She said she has had a weight gain of 10 lb for last couple days. Strict I&O and she has a Hines catheter. The patient stated that she was told that she does have chronic renal failure. I am not sure her baseline is since she is not had any of her medical problems addressed here in the past. The patient tells me that she typically goes to [facility]. Troponins flat, could be related to her chronic renal failure or could be related to the congestive heart failure. Ulceration; the patient has a history of sarcoidosis and had a nodule on her buttocks that just never healed. Cardiology consulted for CHF 02/26/21 cont diuresis for CHF, cont wound care, chronic diseases otherwise controlled, cont current care, home meds continued 02/27/21 DVT LMWH to OAC, cardio following, cont diuresis pt -5 to 6L , cont wound care, anticipate transfer back to facility in a day or 2, cont current care, transfer from stepdown to telemetry floor 02/28/21 pt doing well has been seen by cardiology -8L +, afib rate controlled, pt is on eliquis for new dx of partially occlusive thrombus/afib. dispo transfer back to [place] facility to receive ongoing wound care. Time Spent with Patient Time attestation: Teressa
== END 2021-02-28 18:40 | DRG 292 ==
LOC: ANHED 19:29 → ANHIMU 20:03 → ANH3MEDSUR 02-28 14:35 → ANHIMU 03-04 13:44
PROVIDERS: Emergency Medicine Emergency Medical Services; Internal Medicine; Internal Medicine Cardiovascular Disease; Nurse Practitioner; Admitting Provider Family Medicine; Emergency Provider Emergency Medicine; Visit Provider Hospitalist
DX: I13.0 Hypertensive heart and chronic kidney disease with heart failure and stage 1 through stage 4 chronic kidney disease, or unspecified chronic kidney disease (principal); I82.409 Acute embolism and thrombosis of unspecified deep veins of unspecified lower extremity; I50.32 Chronic diastolic (congestive) heart failure; N18.30 Chronic kidney disease, stage 3 unspecified; I48.0 Paroxysmal atrial fibrillation; G25.81 Restless legs syndrome; K21.9 Gastro-esophageal reflux disease without esophagitis; L98.419 Non-pressure chronic ulcer of buttock with unspecified severity; R77.8 Other specified abnormalities of plasma proteins; D86.9 Sarcoidosis, unspecified; E78.5 Hyperlipidemia, unspecified; Z66 Do not resuscitate; Z79.899 Other long term (current) drug therapy; Z98.41 Cataract extraction status, right eye; Z98.42 Cataract extraction status, left eye
CPT/HCPCS: 36415; 71045; 80048; 80053; 80061; 81001; 83735; 83880; 84484; 85025; 85027; 85610; 85730; 87077; 87086; 87088; 87186; 93005; 93306; 93970; 96372; 96374; 96376; 99285; A9270; C9113; G0378; G0379; J1650; J1940; J7512

== ENCOUNTER 2021-03-29 09:26 | Emergency (ER) | payer MEDICAID, SELFPAY ==
--- NOTE | ~2021-03-29 | XR_ITS ---
EXAMINATION: XR chest 2V DATE: 03/29/2021 09:51 INDICATION: Weakness and lethargy TECHNIQUE: AP and lateral views of the chest are obtained. COMPARISON: 02/25/2021 FINDINGS: Cardiomegaly is noted. There are small pleural effusions. Interstitial and airspace opaciti es are present in the mid and lower lung zones. There is no pneumothorax. There are bridging osteophy bernabe at multiple levels in the spine, consistent with diffuse idiopathic skeletal hyperostosis (DISH). There is moderate osteoarthritis of the shoulders. IMPRESSION: 1. Cardiomegaly. 2. Interstitial and airspace opacities of the mid and lower lung zones, likely pulmonary edema. Reviewed, dictated and finalized at location A.
[2021-03-29 09:27] VITALS: BP 126/54; PULSE 71; RESP 18; TEMP 36.6; O2SAT 96
--- NOTE | 2021-03-29 09:34 | ECG_ITS ---
Measurements Intervals [place] Rate: 77 P: 147 PA: 120 QRS: -13 QRSD: 140 T: -6 QT: 409 QTc: 463 Interpretive Statements SINUS RHYTHM VENTRICULAR PREMATURE COMPLEX RIGHT BUNDLE BRANCH BLOCK BASELINE ARTIFACT- I, II, AVR, AVL, AVF, V3-V6 ABNORMAL ECG Electronically Signed On 03-29-2021 9:36:50 CDT by Segundo Bass D.O.
[2021-03-29 10:08] LABS: Basophils Percent Auto 0.3 % (0.2-1.2); Eosinophils Percent Auto 0.1 % (0-4.4); Hematocrit 34.7 % (37.0-47.0); Hemoglobin 10.4 g/dL (12.0-15.0); Immature Granulocyte Absolute 0.08 K/mm3 (0.00-0.031); Immature Granulocyte Percent A 0.7 % (0-0.5); Lymphocytes Absolute Auto 0.43 K/mm3 (0.9-3.2); Lymphocytes Percent Auto 3.9 % (18.3-44.2); Mean Corpuscular Volume 83.4 fl (80-100); Monocytes Absolute Auto 0.5 K/mm3 (0.1-0.6); Monocytes Percent Auto 4.7 % (2.6-8.5); Neutrophils Percent Auto 90.3 % (45.5-73.1); Platelet Count Result 205 k/mm3 (150-375); Red Blood Count 4.16 M/mm3 (4.2-5.4); Red Cell Distribution Width 16.9 % (11.5-14.5); White Blood Count 11.1 K/mm3 (4.5-10.0)
[2021-03-29 10:16] LABS: Alanine Aminotransferase 13 U/L (4-35); Albumin Level 3.2 g/dL (3.5-5.1); Alkaline Phosphatase 53 U/L (38-126); Anion Gap 5 mmol/L (8-16); Aspartate Amino Transferase 32 U/L (14-36); Bilirubin,Total 0.8 mg/dL (0.2-1.3); Blood Urea Nitrogen 55 mg/dL (7-17); Calcium 9.2 mg/dL (8.4-10.2); Carbon Dioxide 32 mmol/L (22-30); Chloride 105 mmol/L (98-107); Estimated CRCL calculation 35 ml/min; Estimated Glomerular Filt Rate 41; Glucose 97 mg/dL (65-105); Potassium 3.1 mmol/L (3.4-5.0); Sodium 142 mmol/L (137-145)
[2021-03-29 10:19] LABS: Add Urine Microscopic? YES; Appearance Urine Cloudy (Clear); Bacteria Urine 1+ /hpf; Bilirubin Urine Negative (Negative); Blood Urine 3+ (Negative); Color Urine Yellow (Yellow); Glucose Urine UA Negative (Negative); Ketones Urine Negative (Negative); Leukocyte Esterase Ur 3+ LEU/UL (Negative); Mucus Urine Rare /lpf; Nitrate Urine Negative (Negative); Protein Urine 2+ mg/dL (Negative); RBC Urine >75 /hpf (0-2); Specific Grav Ur 1.011 (1.001-1.035); Squamous Epithelial Cell Urine Rare /hpf (Few); Urobilinogen Urine Negative mg/dL (<2.0); WBC Clumps Urine Present /HPF; WBC Urine >75 /hpf
--- NOTE | 2021-03-29 10:19 | ED.GENADULT ---
HPI - General Adult General Chief complaint: Unspecified Stated complaint: lethargic Time Seen by Provider: 03/29/21 09:56 History of Present Illness HPI narrative: Brought in by EMS from [place] for altered mental status. SHe was noted to be lethargic with twitching arm movements. On arrival here she is afully oriented although some what drowsy and slow to answer questions. She believes that this is due to a sleeping pill that she took last night. Her only complaint is pain in the buttocks and back. She just had a wound vac removed from a sacral ulcer that she had recently debrided at [facility]. No CP, SOB, nausea, vomiting. Related Data Home Medications Medication Instructions Recorded Confirmed acetaminophen [Tylenol 8 Hour] 650 mg PO Q8H 02/26/21 02/26/21 allopurinol 150 mg PO DAILY 02/26/21 02/26/21 aspirin 81 mg PO DAILY 02/26/21 02/26/21 atorvastatin 40 mg PO HS 02/26/21 02/26/21 clindamycin HCl 300 mg PO QID 02/26/21 02/26/21 docusate sodium [Colace] 100 mg PO DAILY 02/26/21 02/26/21 escitalopram oxalate 10 mg PO HS 02/26/21 02/26/21 ezetimibe 10 mg PO DAILY 02/26/21 02/26/21 furosemide 80 mg PO BID 02/26/21 02/26/21 gabapentin 100 mg PO DAILY 02/26/21 02/26/21 hydralazine 100 mg PO TID 02/26/21 02/26/21 hydrocodone-acetaminophen 7.5 - 325 tablet PO QID PRN 02/26/21 02/26/21 lidocaine [Lidoderm] 2 patch TRANSDERMAL DAILY 02/26/21 02/26/21 metoprolol tartrate 75 mg PO BID 02/26/21 02/26/21 metronidazole 500 mg BID 02/26/21 02/26/21 pantoprazole 40 mg PO BID 02/26/21 02/26/21 prednisone 20 mg PO DAILY 02/26/21 02/26/21 silver sulfadiazine 1 applic TOPICAL BID 02/26/21 02/26/21 Allergies Allergy/AdvReac Type Severity Reaction Status Date / Time codeine Allergy Nausea Verified 02/25/21 16:03 Review of Systems Review of Systems: All systems reviewed & are unremarkable except as noted in HPI and below Constitutional: Constitutional: Denies fever(s) Eyes: Eyes: Reports no additional eye complaints ENT: Reports system reviewed and no additional complaints, except as documented Cardiovascular: Cardiovascular: Denies chest pain Respiratory: Respiratory: Denies dyspnea Gastrointestinal: Gastrointestinal: Denies nausea and Denies vomiting Genitourinary: Genitourinary: Reports no additional female genitourinary complaints Musculoskeletal: Musculoskeletal: Reports back pain Neurologic: Reports Abnormal speech present and Denies dizziness PMFSH Past Medical History Medical History Anemia Atrial fibrillation Chronic GERD Chronic renal failure, stage 3 (moderate) Chronic ulcer of buttock Diastolic heart failure GI bleeding Hyperlipidemia Hypertension MRSA (methicillin resistant staph aureus) culture positive Obesity Restless leg syndrome Sarcoidosis Surgical History Surgical History H/O bilateral cataract extraction H/O hernia repair H/O tubal ligation History of bowel resection History of partial hysterectomy Family History Family History Mother Stomach cancer Social History Social History Social History: The patient is . She has 2 children. She [facility]. She is retired from the [employer]. Lifelong nonsmoker. Does not use any alcohol marijuana or illicit drugs. She is a DNR. Smoking status: Never smoker Second hand tobacco smoke exposure: No Alcohol intake: never Substance use: never Substance use type: does not use Gender identity (if verbalized by the patient): Female Spiritual care concerns: No Exam Const: General: cooperative, comfortable, no acute distress and awake Nutritional Appearance: well nourished Orientation/consciousness: patient oriented x3 HENMT: Head: normal to inspection Face and s
--- NOTE | 2021-03-29 10:38 | PC.NURSE ---
CALLED MAIN LAB TO ADD ON BNP @0220
[2021-03-29 11:22] LABS: NT Pro B Type Natriuretic Pept 3170 pg/mL (5-100)
[2021-03-29] MEDS: POTASSIUM CHLORIDE 20 MEQ PACKET (FOR LIQUID) 40 MEQ PO (11:45)
[2021-03-29 12:19] VITALS: BP 125/64; PULSE 69; RESP 17; O2SAT 100
--- NOTE | 2021-03-29 13:10 | PC.NURSE ---
[facility] called for return to [facility] at 12:04 no acknowledge of them accepting return [facility] arrived at 13:09 for return to [facility]
== END 2021-03-29 13:16 ==
PROVIDERS: Emergency Provider Emergency Medicine
DX: N30.00 Acute cystitis without hematuria (principal); I48.91 Unspecified atrial fibrillation; I13.0 Hypertensive heart and chronic kidney disease with heart failure and stage 1 through stage 4 chronic kidney disease, or unspecified chronic kidney disease; N18.30 Chronic kidney disease, stage 3 unspecified; I50.30 Unspecified diastolic (congestive) heart failure; E78.5 Hyperlipidemia, unspecified; G25.81 Restless legs syndrome; D86.9 Sarcoidosis, unspecified; D64.9 Anemia, unspecified; E66.9 Obesity, unspecified; Z68.29 Body mass index [BMI] 29.0-29.9, adult; Z98.42 Cataract extraction status, left eye; Z98.41 Cataract extraction status, right eye; Z66 Do not resuscitate; Z79.82 Long term (current) use of aspirin; Z86.14 Personal history of Methicillin resistant Staphylococcus aureus infection; I51.7 Cardiomegaly; R91.8 Other nonspecific abnormal finding of lung field; I49.3 Ventricular premature depolarization; I45.10 Unspecified right bundle-branch block
CPT/HCPCS: 36415; 71046; 80053; 81001; 83880; 85025; 87077; 87086; 87088; 87186; 93005; 96365; 99284; A9270; J0696

== ENCOUNTER 2021-05-18 09:40 | Inpatient (IN) | payer MEDICAID, SELFPAY ==
[2021-05-18] VITALS (53 sets, daily range): BP systolic 95–151; BP diastolic 39–96; PULSE 66–96; RESP 12–21; TEMP 36.6–38.4; O2SAT 96–100; BMI 27.9
--- NOTE | ~2021-05-18 | CT_ITS ---
EXAMINATION: CT abdomen pelvis wo con DATE: 05/18/2021 11:17 INDICATION: Abdominal distention TECHNIQUE: Computed tomography (CT) of the abdomen and pelvis was performed without intravenous contr ast. The dose-length product (DLP) was 1281.47 mGy-cm. Automated exposure control and iterative recon struction technique were employed. COMPARISON: None FINDINGS: There are small pleural effusions, right greater than left. Cardiomegaly is noted. The live r, spleen, pancreas, gallbladder, and adrenal glands are normal. There is a 6 mm nonobstructing stone of the left kidney lower pole. The right kidney is unremarkable. No pathologically enlarged abdomina l or pelvic lymph nodes are identified. There is a marked volume of impacted feces in the rectum. A l arge volume of stool is present throughout the remainder of the colon. There is severe osteoarthritis of the hips. Severe lumbar spondylosis is noted. There is diffuse anasarca. There appears to be a Fo shannan catheter in the bladder. IMPRESSION: 1. Marked fecal impaction. Reviewed, dictated and finalized at location B. IMPRESSION: 1. Marked fecal impaction.
--- NOTE | ~2021-05-18 | US_ITS ---
EXAMINATION: US venous doppler [facility] DATE: 05/19/2021 17:38 INDICATION: Left lower limb swelling TECHNIQUE: Grayscale ultrasound images without and with compression and Doppler ultrasound images of the left lower extremity veins were obtained. COMPARISON: None. FINDINGS: The visualized portions of left common femoral vein, profunda (deep) femoral vein, femoral vein, popl iteal vein, posterior tibial veins and greater saphenous vein outflow are patent. IMPRESSION: 1. No deep venous thrombosis in the left lower limb. Reviewed, dictated and finalized at location A.
--- NOTE | ~2021-05-18 | XR_ITS ---
EXAMINATION: XR chest 1V portable INDICATION: Weakness, history of hypertension and atrial fibrillation TECHNIQUE: Portable AP chest at 1001 hours COMPARISON: 03/29/2021 FINDINGS: Cardiomegaly is noted. There is a mild diffuse interstitial pattern. No pleural effusion or pneumothorax is identified. Surgical lips are noted in the left axilla. There is moderate osteoarthr itis of the shoulders. IMPRESSION: 1. Cardiomegaly with possible mild pulmonary edema. Reviewed, dictated and finalized at location B.
--- NOTE | ~2021-05-18 | XR_ITS ---
XR abdomen obstructive series 05/24/2021 15:00 Indication: Fecal impaction Procedure: Supine and upright views of abdomen Comparison: 05/20/2021 Findings: Bowel gas pattern is nonobstructive. There is moderate lumbar spondylosis with levoscoliosi s. There is severe osteoarthritis of the hips. No abnormal renal stones are identified. Lung bases un remarkable. Impression: 1: Nonobstructive bowel gas pattern. Reviewed, dictated and finalized at location A. Impression: 1: Nonobstructive bowel gas pattern.
--- NOTE | ~2021-05-18 | CT_ITS ---
EXAMINATION: CT brain wo con INDICATION: Weakness COMPARISON: None TECHNIQUE: Standard unenhanced head CT. The dose-length product (DLP) was 681.00 mGy-cm. The mA was a djusted according to patient size. Iterative reconstruction technique was employed. FINDINGS: There is no acute intraparenchymal hemorrhage. No evidence of mass lesion. No evidence of a cute infarction. There is mild periventricular and subcortical hypodensity probably related to small vessel ischemic disease. There is mild prominence of the sulci and ventricles related to cerebral atr ophy. Intracranial calcified cerebral atherosclerosis is noted. There are no extra-axial collections. There is no mass effect or midline shift. Changes in the globes are likely from ocular lens surgery. The visualized sinuses and mastoid air cells are well aerated. IMPRESSION: 1. No acute intracranial abnormality. 2. Age related findings. Reviewed, dictated and finalized at location B.
--- NOTE | ~2021-05-18 | XR_ITS ---
EXAMINATION: XR abdomen obstructive series DATE: 05/20/2021 09:45 INDICATION: Fecal impaction. TECHNIQUE: Upright and supine views of the abdomen on 3 radiographs were obtained. COMPARISON: CT abdomen and pelvis 05/18/2021 FINDINGS: There are no dilated loops of bowel. There is a large volume of stool in the colon. No free intraperitoneal gas. IMPRESSION: 1. Nonobstructive bowel gas pattern with large volume of stool in the colon. Reviewed, dictated and finalized at location A.
--- NOTE | 2021-05-18 09:51 | ECG_ITS ---
Measurements Intervals [place] Rate: 80 P: 83 DE: 159 QRS: -13 QRSD: 153 T: 17 QT: 387 QTc: 448 Interpretive Statements SINUS RHYTHM FREQUENT ATRIAL PREMATURE COMPLEXES RIGHT BUNDLE BRANCH BLOCK BASELINE ARTIFACT- I, II, V4 ABNORMAL ECG Electronically Signed On 05-18-2021 10:15:53 CDT by Segundo Bass D.O.
--- NOTE | 2021-05-18 09:53 | ED.AMS ---
HPI - Altered Mental Status General Chief Complaint: Weakness Stated Complaint: LETHARGY Time Seen by Provider: 05/18/21 09:44 Source: patient and EMS Mode of arrival: EMS Limitations: altered mental status History of Present Illness HPI narrative: Patient is a 76-year-old female with a history of chronic kidney disease, hypertension, diastolic heart failure, iron deficient anemia with preserved ejection fraction, who presents to the emergency department for evaluation of altered mentation, hypotension, hematuria. Patient presents from a [facility] for noted low blood pressure yesterday. EMS was initially dispatched to the care facility in which the patient declined treatment. Overnight, the patient developed blood present in her urinary catheter, thus prompting her wish to be evaluated at the hospital today. At the time of assessment, patient is awake, however she is slow to answer questions. She denies any pain. She is alert to person and to time. Of note, per EMS, patient's glucose was normal in route. She was noted to be mildly hypotensive with systolics in the 90s thus an IV was started and the patient was given IV fluids. Patient was noted to be febrile for EMS. Related Data Home Medications Medication Instructions Recorded Confirmed acetaminophen [Tylenol 8 Hour] 650 mg PO Q8H 02/26/21 02/26/21 allopurinol 150 mg PO DAILY 02/26/21 02/26/21 aspirin 81 mg PO DAILY 02/26/21 02/26/21 atorvastatin 40 mg PO HS 02/26/21 02/26/21 clindamycin HCl 300 mg PO QID 02/26/21 02/26/21 docusate sodium [Colace] 100 mg PO DAILY 02/26/21 02/26/21 escitalopram oxalate 10 mg PO HS 02/26/21 02/26/21 ezetimibe 10 mg PO DAILY 02/26/21 02/26/21 furosemide 80 mg PO BID 02/26/21 02/26/21 gabapentin 100 mg PO DAILY 02/26/21 02/26/21 hydralazine 100 mg PO TID 02/26/21 02/26/21 hydrocodone-acetaminophen 7.5 - 325 tablet PO QID PRN 02/26/21 02/26/21 lidocaine [Lidoderm] 2 patch TRANSDERMAL DAILY 02/26/21 02/26/21 metoprolol tartrate 75 mg PO BID 02/26/21 02/26/21 metronidazole 500 mg BID 02/26/21 02/26/21 pantoprazole 40 mg PO BID 02/26/21 02/26/21 prednisone 20 mg PO DAILY 02/26/21 02/26/21 silver sulfadiazine 1 applic TOPICAL BID 02/26/21 02/26/21 Allergies Allergy/AdvReac Type Severity Reaction Status Date / Time codeine AdvReac Nausea Verified 05/18/21 13:10 Review of Systems Review of Systems: CONSTITUTIONAL: Reports feeling warm CARDIOVASCULAR: Denies chest pain RESPIRATORY: Denies cough or dyspnea. GASTROINTESTINAL: Denies abdominal pain : Reports hematuria SKIN: Denies rash MUSCULOSKELETAL: Denies back pain NEUROLOGIC: Denies headache PMFSH Past Medical History Medical History Anemia Atrial fibrillation Chronic GERD Chronic renal failure, stage 3 (moderate) Chronic ulcer of buttock Diastolic heart failure GI bleeding Hyperlipidemia Hypertension MRSA (methicillin resistant staph aureus) culture positive Obesity Restless leg syndrome Sarcoidosis Surgical History Surgical History H/O bilateral cataract extraction H/O hernia repair H/O tubal ligation History of bowel resection History of partial hysterectomy Family History Family History Mother Stomach cancer Social History Social History Social History: The patient is . She has 2 children. She resides at care center at [facility]. She is retired from the [employer]. Lifelong nonsmoker. Does not use any alcohol marijuana or illicit drugs. She is a DNR. Smoking status: Never smoker Second hand tobacco smoke exposure: No Alcohol intake: never Substance use: never Substance use type: does not use Gender identity (if verbalized by the patient): Female Spiritual care concerns: No Exam Narrative: GE
[2021-05-18 09:55] LABS: Glucose Point of Care 110 mg/dl (65-105)
[2021-05-18] MEDS: SODIUM CHLORIDE 0.9% IV 1,000 ML 999 ML IV CONT (10:04)
[2021-05-18 10:42] LABS: Basophils Percent Auto 0.1 % (0.2-1.2); Eosinophils Percent Auto 0.1 % (0-4.4); Hematocrit 25.1 % (37.0-47.0); Hemoglobin 7.6 g/dL (12.0-15.0); Immature Granulocyte Absolute 0.43 K/mm3 (0.00-0.031); Immature Granulocyte Percent A 2.8 % (0-0.5); Lymphocytes Absolute Auto 0.42 K/mm3 (0.9-3.2); Lymphocytes Percent Auto 2.7 % (18.3-44.2); Mean Corpuscular HGB Conc 30.3 g/dl (32-36); Mean Corpuscular Hemoglobin 24.2 pg (26-34); Mean Corpuscular Volume 79.9 fl (80-100); Mean Platelet Volume 10.5 fl (7.4-10.4); Monocytes Absolute Auto 1.1 K/mm3 (0.1-0.6); Monocytes Percent Auto 7.2 % (2.6-8.5); Neutrophils Absolute Auto 13.4 K/mm3 (1.3-6.7); Neutrophils Percent Auto 87.1 % (45.5-73.1); Platelet Count Result 181 k/mm3 (150-375); Red Blood Count 3.14 M/mm3 (4.2-5.4); White Blood Count 15.4 K/mm3 (4.5-10.0)
[2021-05-18 10:49] LABS: Platelet Estimate Adequate (Adequate)
[2021-05-18 10:50] LABS: Anisocytosis 2+ (NORMAL); Hypochromasia 1+ (NORMAL); Ovalocytes 1+ (NORMAL); Poikilocytosis 1+ (NORMAL); Tear Drop Cells 1+ (NORMAL)
[2021-05-18 10:52] LABS: INR 1.6; Prothrombin Time 19.1 Seconds (11.1-14.7)
[2021-05-18 10:53] LABS: Add Urine Microscopic? YES; Appearance Urine Cloudy (Clear); Bacteria Urine 1+ /hpf; Bilirubin Urine Negative (Negative); Blood Urine 3+ (Negative); Color Urine Red (Yellow); Glucose Urine UA Negative (Negative); Hyaline Casts Urine 30-49 /lpf; Ketones Urine Trace mg/dL (Negative); Leukocyte Esterase Ur 2+ LEU/UL (Negative); Nitrate Urine Negative (Negative); Partial Thromboplastin Time 40.8 SECONDS (22.3-36.8); Protein Urine 3+ mg/dL (Negative); RBC Urine >75 /hpf (0-2); Specific Grav Ur 1.013 (1.001-1.035); Urobilinogen Urine Negative mg/dL (<2.0); WBC Urine >75 /hpf
[2021-05-18 10:55] LABS: Lactic Acid Reflex 1.4 mmol/L (0.7-2.1)
[2021-05-18 11:03] LABS: Alanine Aminotransferase 13 U/L (4-35); Albumin Level 3.1 g/dL (3.5-5.1); Alkaline Phosphatase 63 U/L (38-126); Anion Gap 9 mmol/L (8-16); Aspartate Amino Transferase 31 U/L (14-36); Bilirubin,Total 0.6 mg/dL (0.2-1.3); Blood Urea Nitrogen 90 mg/dL (7-17); Calcium 9.5 mg/dL (8.4-10.2); Carbon Dioxide 26 mmol/L (22-30); Chloride 97 mmol/L (98-107); Estimated CRCL calculation 21 ml/min; Estimated Glomerular Filt Rate 28; Glucose 92 mg/dL (65-110); Potassium 3.1 mmol/L (3.4-5.0); Sodium 132 mmol/L (137-145)
[2021-05-18 11:07] LABS: NT Pro B Type Natriuretic Pept 3600 pg/mL (5-100)
[2021-05-18 11:13] LABS: CRP 17.3 mg/dL (<1.0); Troponin I 0.046 ng/mL (0.000-0.034)
--- NOTE | 2021-05-18 11:16 | PC.NURSE ---
report to CRYSTAL Karimi
[2021-05-18 11:32] LABS: Alveolar/Arterial O2 Gradient 32.3 mmHg; Base Excess ABG 0.7 mEq/l (+/-2.0); Carboxyhemoglobin 0.8 % THb (0-2.0); Fractional Inspired Oxygen 21 %; HCO3 ABG 24.7 mEq/l (22.0-26.0); Methemoglobin ABG 0.1 %THb (0-1.5); Oxygen Content ABG 11.5 %vol (16.0-22.0); Oxygen Saturation ABG 95.4 % (95.0-100.0); Oxyhemoglobin 93.6 % THb (90.0-100.0); PCO2 ABG 36.8 mmHg (35.0-45.0); PO2 ABG 73.4 mmHg (80.0-100.0); Reduced Hemoglobin 5.5 %THb (0-5.0); Total Hemoglobin 8.7 g/dL (12.0-18.0); pH ABG 7.444 (7.350-7.450)
[2021-05-18 11:33] LABS: Device ROOM AIR; Site Drawn RIGHT BRACHIAL
[2021-05-18] MEDS: POTASSIUM CHLORIDE 20 MEQ TABLET 40 MEQ PO (14:01)
--- NOTE | 2021-05-18 14:05 | PC.NURSE ---
Repeat troponins drawn by tech. Repositioned. No further needs at this time
--- NOTE | 2021-05-18 14:14 | PC.NURSE ---
Attempted to call Diane who was requesting update, no answer at this time.
--- NOTE | 2021-05-18 14:27 | PC.NURSE ---
Returned call of [facility] ([phone]) and spoke with Melinda ([address] Nurse). Informed her patient will be admitted, gave update.
[2021-05-18 14:32] LABS: Troponin I 0.043 ng/mL (0.000-0.034)
--- NOTE | 2021-05-18 20:00 | PM.IMHP ---
H&P: HPI History of Present Illness Date/Time: 05/18/21 20:00 Chief Complaint: Weakness and blood in Hines catheter. Narrative: This is a very pleasant 76-year-old female with hypertension, hyperlipidemia, paroxysmal atrial fibrillation, diastolic congestive heart failure, chronic kidney disease, and sarcoidosis who presented to the emergency department earlier today via EMS from [facility] for evaluation of weakness and blood in Hines catheter. The patient herself is a fair historian but some of the following is supplemented via a review of her electronic medical records. According to EMS documentation, staff at the senior living report that she seemed to be more weak and lethargic last evening and had blood pressures on the lower end of normal. It sounds as though she was having possible rigors last night as well however she declined to be brought to the hospital at that time. This morning she has been feeling worse and requested transport. She has no specific complaints and complains of generalized malaise and chills. In the emergency department her blood pressure was low as 95/75 but has improved with IV fluid rehydration. Labs show acute on chronic renal failure with several mild electrolyte abnormalities and a urine concerning for UTI. At the time my evaluation she has no specific complaints aside from mild discomfort due to her chronic stage IV sacral pressure ulcer. She has not had a documented fever and she denies sinus congestion, rhinorrhea, otalgia, odynophagia, cough, nausea, vomiting, abdominal pain, back pain, and diarrhea. She says she does not feel constipated however CT shows marked fecal impaction. Review of Systems Review of Systems: Twelve systems were reviewed with pertinent positives and negatives as per HPI. Except as documented, all other systems were reviewed and are negative. [facility] Past Medical History Medical History (Updated 05/18/21 @ 23:28 by Marie Harris PA-C) Alpha thalassemia Anemia Chronic indwelling Hines catheter Chronic renal failure, stage 3 (moderate) Diastolic heart failure Gastroesophageal reflux disease Hyperlipidemia Hypertension MRSA (methicillin resistant staph aureus) culture positive Osteoarthritis Paroxysmal atrial fibrillation Pressure ulcer of sacral region, stage 4 Restless leg syndrome Sarcoidosis Surgical History Surgical History (Updated 05/18/21 @ 23:16 by Marie Harris PA-C) History of bilateral cataract extraction History of bowel resection History of hernia repair History of partial hysterectomy History of tubal ligation Family History Family History Mother Stomach cancer Social History Social History (Updated 05/18/21 @ 23:17 by Marie Harris PA-C) Social History: The patient is and 2 children. She is currently at [facility]. She is retired from the [employer]. Lifelong nonsmoker. No alcohol or illicit substance use. Emergency contact: Aisha Henao, daughter. Meds Home Medications and Allergies Home Medications Medication Instructions Recorded Confirmed Type acetaminophen [Tylenol 8 Hour] 650 mg PO Q8H 02/26/21 02/26/21 History allopurinol 150 mg PO DAILY 02/26/21 02/26/21 History aspirin 81 mg PO DAILY 02/26/21 02/26/21 History atorvastatin 40 mg PO HS 02/26/21 02/26/21 History clindamycin HCl 300 mg PO QID 02/26/21 02/26/21 History docusate sodium [Colace] 100 mg PO DAILY 02/26/21 02/26/21 History escitalopram oxalate 10 mg PO HS 02/26/21 02/26/21 History ezetimibe 10 mg PO DAILY 02/26/21 02/26/21 History furosemide 80 mg PO BID 02/26/21 02/26/21 History gabapentin 100 mg PO DAILY 02/26/21 02/26/21 History hydralazine 100 mg PO TID 02/26/21 02/26/21 History hydrocodone-acetaminophen 7.5 - 325 tablet PO QID PRN 02/26/21 02/26/21 History lidocaine [Lidoderm] 2 patch TRANSDERMAL DAILY 02/26/21 02/26/21 History metoprolol tartrate 75 mg PO
--- NOTE | 2021-05-18 20:10 | ADMGEN ---
This patient, Tegan Martines, was admitted to IMU Room 209-. Patient/family oriented to hospital policies and general routines including ID bracelet, bed and alarms, visiting hours, pain management, procedures, bathroom and other care routines, personal items, smoking policy, room service/diet, and visiting hours. Information on how to activate the Rapid Response Team has been discussed. Patient/Family are encouraged to report perceived risks to care and to ask questions if they do not understand what they are told or what they should do.
[2021-05-19] VITALS (14 sets, daily range): BP systolic 133–155; BP diastolic 55–80; PULSE 74–102; RESP 16–20; TEMP 36.7–37.1; O2SAT 95–100; BMI 28.1
[2021-05-19] MEDS: SODIUM CHLORIDE 0.9% IV 1,000 ML 85 ML IV CONT (00:07)
[2021-05-19] MEDS: DOCUSATE SODIUM 400 MG/400 ML ENEMA RECTAL (04:03)
[2021-05-19 05:07] LABS: Hematocrit 27.4 % (37.0-47.0); Hemoglobin 8.1 g/dL (12.0-15.0); Mean Corpuscular HGB Conc 29.6 g/dl (32-36); Mean Corpuscular Hemoglobin 23.8 pg (26-34); Mean Corpuscular Volume 80.6 fl (80-100); Platelet Count Result 161 k/mm3 (150-375); Red Cell Distribution Width 18.1 % (11.5-14.5); White Blood Count 11.8 K/mm3 (4.5-10.0)
[2021-05-19 05:19] LABS: Alanine Aminotransferase 12 U/L (4-35); Albumin Level 2.9 g/dL (3.5-5.1); Alkaline Phosphatase 72 U/L (38-126); Anion Gap 11 mmol/L (8-16); Aspartate Amino Transferase 35 U/L (14-36); Bilirubin,Total 0.6 mg/dL (0.2-1.3); Blood Urea Nitrogen 95 mg/dL (7-17); Calcium 9.2 mg/dL (8.4-10.2); Carbon Dioxide 19 mmol/L (22-30); Chloride 102 mmol/L (98-107); Estimated CRCL calculation 26 ml/min; Estimated Glomerular Filt Rate 31; Glucose 92 mg/dL (65-110); Magnesium 2.2 mg/dL (1.6-2.3); Potassium 3.3 mmol/L (3.4-5.0); Sodium 132 mmol/L (137-145)
[2021-05-19] MEDS: POTASSIUM CHLORIDE 20 MEQ TABLET 40 MEQ PO (11:11)
[2021-05-19] MEDS: allopurinoL 150 MG TABLET PO (11:12)
[2021-05-19] MEDS: hydrALAZINE HCL 50 MG TABLET 100 MG PO ×3 (11:12→20:03)
[2021-05-19] MEDS: PANTOPRAZOLE 40 MG TABLET PO ×2 (11:13→20:02)
[2021-05-19] MEDS: predniSONE 5 MG TABLET 15 MG PO (11:13)
[2021-05-19] MEDS: EZETIMIBE 10 MG TABLET PO (11:13)
[2021-05-19] MEDS: DOCUSATE SODIUM 100 MG CAPSULE PO (11:13)
[2021-05-19] MEDS: METOPROLOL TARTRATE 25 MG TABLET 75 MG PO ×2 (11:14→20:02)
[2021-05-19] MEDS: GABAPENTIN 100 MG CAPSULE PO (12:13)
[2021-05-19] MEDS: MAGNESIUM HYDROXIDE SUSP 30 ML UDC PO (12:13)
[2021-05-19 15:32] LABS: SARS-CoV-2 RNA PCR Negative
--- NOTE | 2021-05-19 15:54 | WPDGICN ---
Assessment and Plan Assessment and plan (1) Chronic anemia: Code(s): D64.9 - Anemia, unspecified Status: Acute Assessment and Plan: no signs of overt gib, monitor if any during this hospitalization anemia probably multifactorial and can be related to sepsis, use of eliquis, hematuria, etc conservative treatment for now, scopes only if obvious bleeding (2) Acute on chronic renal failure: Code(s): N17.9 - Acute kidney failure, unspecified; N18.9 - Chronic kidney disease, unspecified Status: Acute Assessment and Plan: medical treatment (3) Urinary tract infection: Qualifiers: Hematuria presence: with hematuria Urinary tract infection type: acute cystitis Qualified Code(s): N30.01 - Acute cystitis with hematuria Code(s): N39.0 - Urinary tract infection, site not specified Status: Acute Assessment and Plan: on antibiotics, also noted hematuria (4) Sepsis: Qualifiers: Acute renal failure type: unspecified Sepsis acute organ dysfunction status: with acute organ dysfunction Sepsis type: sepsis due to unspecified organism Severe sepsis acute organ dysfunction type: acute renal failure Severe sepsis shock status: without septic shock Qualified Code(s): A41.9 - Sepsis, unspecified organism; R65.20 - Severe sepsis without septic shock; N17.9 - Acute kidney failure, unspecified Code(s): A41.9 - Sepsis, unspecified organism Status: Acute (5) Chronic indwelling Hines catheter: Code(s): Z97.8 - Presence of other specified devices Status: Acute (6) Fecal impaction: Code(s): K56.41 - Fecal impaction Status: Acute Assessment and Plan: laxatives and enemas prn RN reports that she is having bm again patient says that she has chronic constipation (7) Pressure ulcer of sacral region, stage 4: Code(s): L89.154 - Pressure ulcer of sacral region, stage 4 Status: Acute GI Consult Note Consult date/time: 05/19/21 15:54 Reason for consult: fecal impaction, DES HPI: Tegan Martines is a 76 year old female with history of hypertension, paroxysmal atrial fibrillation on eliquis, diastolic congestive heart failure, chronic stage IV sacral pressure ulcer, chronic kidney disease, and sarcoidosis admitted to the hospital after she was brought via EMS from senior living for evaluation of weakness and blood in Hines catheter. Per records staff noted that she was more lethargic than usual with low BP, patient says that had chills. Blood pressure in ER ~ 95/75 improved with IV fluid rehydration, also had acute renal failure and urine concerning for UTI, also noted blood in urine. Started on antibiotics and she is feeling better now. I was called because hb 7.6 (baseline 8.5-10). CT scan reviewed that showed fecal impaction, RN reports that received laxatives and now she is having BM's. No signs of blood in stools. Patient thinks that last colonoscopy 10 years ago, denies abdominal pain. Review of Systems Constitutional: Constitutional: Reports chills and Reports lethargy Eyes: Eyes: Reports no additional eye complaints ENT: Reports Normal hearing present Cardiovascular: Cardiovascular: Denies chest pain Respiratory: Respiratory: Denies dyspnea Gastrointestinal: Gastrointestinal: Denies vomiting Genitourinary: Genitourinary: Reports hematuria Musculoskeletal: Musculoskeletal: Denies neck pain Integumentary/Breasts: Skin/Breast: Reports system reviewed and no additional complaints, except as docu Neurologic: Reports system reviewed and no additional complaints, except as documented Psychiatric: Psychiatric: Reports no additional psychiatric complaints PMFSH Past Medical History Medical History (Updated 05/19/21 @ 16:06 by Lucien Bautista MD) Alpha thalassemia Anemia Chronic indwelling Hines catheter Chronic renal failure, stage 3 (moderate) Diastolic heart failure Fecal impaction Gastroesopha
[2021-05-19] MEDS: SOD HYPOCHLORITE 1/4 STRENGTH 473 ML 1 APPLIC TOPICAL ×2 (16:06→20:02)
[2021-05-19] MEDS: WATER FOR IRRIGATION, STERILE 1,000 ML BOTTLE 1000 ML (16:06)
--- NOTE | 2021-05-19 17:19 | PM.IMPN ---
Progress Note: A&P Assessment and Plan (1) Urinary tract infection: Qualifiers: Hematuria presence: with hematuria Urinary tract infection type: acute cystitis Qualified Code(s): N30.01 - Acute cystitis with hematuria Code(s): N39.0 - Urinary tract infection, site not specified Status: Acute Assessment and Plan: UTI with hemorrhagic cystitis secondary to chronic catheter -will hold anticoagulation at this time and hopefully hematuria will improve with treatment of UTI -the Hines bag was just emptied by the PRODUCT MARKETING ANALYST but the nurse, Khurram and PRODUCT MARKETING ANALYSTFlores Rubi both state there are no clots noted in the Hines -if she continues to have hematuria that is not clearing up with holding of the anticoagulation, may consider Urology consult -continue ceftriaxone (changed to 2 g due to bacteremia), await culture and sensitivities. -Hines catheter changed since admission (2) Sepsis: Qualifiers: Acute renal failure type: unspecified Sepsis acute organ dysfunction status: with acute organ dysfunction Sepsis type: sepsis due to unspecified organism Severe sepsis acute organ dysfunction type: acute renal failure Severe sepsis shock status: without septic shock Qualified Code(s): A41.9 - Sepsis, unspecified organism; R65.20 - Severe sepsis without septic shock; N17.9 - Acute kidney failure, unspecified Code(s): A41.9 - Sepsis, unspecified organism Status: Acute Assessment and Plan: Present on admission supported by fever, tachycardia, and acute on chronic renal failure in the setting of urinary tract infection. - Lactic acid levels within normal limits. - Blood pressures have responded to IV fluids -urine culture growing E coli and both blood cultures positive for Gram-negative bacilli -continue ceftriaxone (3) Pressure ulcer of sacral region, stage 4: Code(s): L89.154 - Pressure ulcer of sacral region, stage 4 Status: Acute Assessment and Plan: Chronic finding for the patient. This does not look acutely infected. Wound nurse consulted. (4) Diastolic heart failure: Code(s): I50.30 - Unspecified diastolic (congestive) heart failure Status: Chronic Assessment and Plan: Patient appeared dry on admission and received IV fluids -recheck BMP tomorrow morning and if she still has ALEXANDRA, consider small dose of fluids -home Lasix on hold -encourage oral hydration (5) Elevated troponin: Code(s): R77.8 - Other specified abnormalities of plasma proteins Status: Acute Assessment and Plan: Patient is not having any chest pain likely this is elevated in the setting of her congestive heart failure and worsening kidney function -flat, no chest pain (6) Paroxysmal atrial fibrillation: Code(s): I48.0 - Paroxysmal atrial fibrillation Status: Acute Assessment and Plan: Continue metoprolol -hold apixaban due to hematuria but restart as soon as possible for stroke prophylaxis (7) Hypertension: Code(s): I10 - Essential (primary) hypertension Status: Chronic Assessment and Plan: Last blood pressure 137/79 but were much lower on admission -will continue with hydralazine (with parameters) and metoprolol (8) Acute on chronic renal failure: Code(s): N17.9 - Acute kidney failure, unspecified; N18.9 - Chronic kidney disease, unspecified Status: Acute Assessment and Plan: Improving with IV fluids -stop fluids and monitor renal function -consider more IV fluids if creatinine has not improved by tomorrow although I suspect it will (9) Chronic anemia: Code(s): D64.9 - Anemia, unspecified Status: Acute Assessment and Plan: Hemoglobin 8.1, pretty close to her baseline -monitor for further blood loss -apixaban on hold due to hematuria -GI consulted by previous provider, appreciate their recommendations (10) Septicemia: Code(s): A41.
[2021-05-19] MEDS: ESCITALOPRAM OXALATE 10 MG TABLET PO (20:02)
[2021-05-19 20:37] LABS: Glucose Point of Care 164 mg/dl (65-105)
[2021-05-20] VITALS (14 sets, daily range): BP systolic 109–131; BP diastolic 51–66; PULSE 61–78; RESP 14–20; TEMP 36.1–37.2; O2SAT 97–100
[2021-05-20] MEDS: HYDROcodone/acetaminophen (*CRX) 7.5-325 MG TABLET PO (02:42)
[2021-05-20 04:54] LABS: Basophils Percent Auto 0.1 % (0.2-1.2); Eosinophils Percent Auto 0.1 % (0-4.4); Hematocrit 22.9 % (37.0-47.0); Immature Granulocyte Absolute 0.06 K/mm3 (0.00-0.031); Immature Granulocyte Percent A 0.7 % (0-0.5); Lymphocytes Absolute Auto 0.37 K/mm3 (0.9-3.2); Lymphocytes Percent Auto 4.1 % (18.3-44.2); Mean Corpuscular HGB Conc 30.1 g/dl (32-36); Mean Corpuscular Hemoglobin 23.8 pg (26-34); Mean Platelet Volume 10.6 fl (7.4-10.4); Monocytes Absolute Auto 0.7 K/mm3 (0.1-0.6); Monocytes Percent Auto 7.4 % (2.6-8.5); Neutrophils Absolute Auto 7.9 K/mm3 (1.3-6.7); Neutrophils Percent Auto 87.6 % (45.5-73.1); Platelet Count Result 143 k/mm3 (150-375); Red Cell Distribution Width 18.1 % (11.5-14.5)
[2021-05-20] MEDS: hydrALAZINE HCL 50 MG TABLET 100 MG PO ×2 (04:57→17:38)
[2021-05-20 05:02] LABS: Hemoglobin 6.9 g/dL (12.0-15.0)
[2021-05-20 05:07] LABS: Anion Gap 9 mmol/L (8-16); Blood Urea Nitrogen 87 mg/dL (7-17); Calcium 8.9 mg/dL (8.4-10.2); Carbon Dioxide 23 mmol/L (22-30); Chloride 102 mmol/L (98-107); Estimated CRCL calculation 31 ml/min; Estimated Glomerular Filt Rate 38; Glucose 105 mg/dL (65-110); Potassium 3.3 mmol/L (3.4-5.0); Sodium 134 mmol/L (137-145)
--- NOTE | 2021-05-20 08:55 | PM.IMPN ---
Progress Note: A&P Assessment and Plan (1) Urinary tract infection: Qualifiers: Hematuria presence: with hematuria Urinary tract infection type: acute cystitis Qualified Code(s): N30.01 - Acute cystitis with hematuria Code(s): N39.0 - Urinary tract infection, site not specified Status: Acute Assessment and Plan: UTI with hemorrhagic cystitis secondary to chronic catheter -will continue to hold anticoagulation at this time and plan to restart maybe tomorrow if her urine continues to be clear. Her hgb was 6.9 today and she is getting 1PRBC. -continue ceftriaxone (changed to 2 g due to bacteremia), await culture and sensitivities. -Hines catheter changed since admission (2) Sepsis: Qualifiers: Acute renal failure type: unspecified Sepsis acute organ dysfunction status: with acute organ dysfunction Sepsis type: sepsis due to unspecified organism Severe sepsis acute organ dysfunction type: acute renal failure Severe sepsis shock status: without septic shock Qualified Code(s): A41.9 - Sepsis, unspecified organism; R65.20 - Severe sepsis without septic shock; N17.9 - Acute kidney failure, unspecified Code(s): A41.9 - Sepsis, unspecified organism Status: Acute Assessment and Plan: Present on admission supported by fever, tachycardia, and acute on chronic renal failure in the setting of urinary tract infection. - Lactic acid levels within normal limits. - Blood pressures have responded to IV fluids, renal function improving -urine culture growing E coli and both blood cultures positive for Gram-negative bacilli -continue ceftriaxone (3) Pressure ulcer of sacral region, stage 4: Code(s): L89.154 - Pressure ulcer of sacral region, stage 4 Status: Acute Assessment and Plan: Chronic finding for the patient. This does not look acutely infected. Wound nurse consulted. (4) Diastolic heart failure: Code(s): I50.30 - Unspecified diastolic (congestive) heart failure Status: Chronic Assessment and Plan: Patient appeared dry on admission and received IV fluids -will give another 1L of fluids due to ALEXANDRA and decreased appetite -home Lasix on hold -encourage oral hydration (5) Elevated troponin: Code(s): R77.8 - Other specified abnormalities of plasma proteins Status: Acute Assessment and Plan: Patient is not having any chest pain likely this is elevated in the setting of her congestive heart failure and worsening kidney function -flat, no chest pain (6) Paroxysmal atrial fibrillation: Code(s): I48.0 - Paroxysmal atrial fibrillation Status: Acute Assessment and Plan: Continue metoprolol -hold apixaban due to hematuria but restart as soon as possible for stroke prophylaxis (7) Hypertension: Code(s): I10 - Essential (primary) hypertension Status: Chronic Assessment and Plan: Last blood pressure 131/63 but were much lower on admission -will continue with hydralazine (with parameters) and metoprolol (8) Acute on chronic renal failure: Code(s): N17.9 - Acute kidney failure, unspecified; N18.9 - Chronic kidney disease, unspecified Status: Acute Assessment and Plan: Improving with IV fluids -give 1L of NS -consider more IV fluids if creatinine has not improved by tomorrow although I suspect it will (9) Chronic anemia: Code(s): D64.9 - Anemia, unspecified Status: Acute Assessment and Plan: Hemoglobin 6.9, down from dilution and hematuria on top of chronic anemia -transfuse 1PRBC and hold apixaban -monitor for further blood loss -apixaban on hold due to hematuria -GI consulted by previous provider, appreciate their recommendations (10) Septicemia: Code(s): A41.9 - Sepsis, unspecified organism Status: Acute Assessment and Plan: Both blood cultures growing gram-negative bacilli i
[2021-05-20] MEDS: SODIUM CHLORIDE 0.9% IV 250 ML 30 ML IV CONT (09:41)
[2021-05-20] MEDS: POTASSIUM CHLORIDE 20 MEQ TABLET 40 MEQ PO (09:41)
[2021-05-20] MEDS: SOD HYPOCHLORITE 1/4 STRENGTH 473 ML 1 APPLIC TOPICAL (09:42)
[2021-05-20] MEDS: PANTOPRAZOLE 40 MG TABLET PO ×2 (09:42→22:18)
[2021-05-20] MEDS: METOPROLOL TARTRATE 25 MG TABLET 75 MG PO ×2 (09:42→22:33)
[2021-05-20] MEDS: DICLOFENAC SODIUM 1% 100 GM GEL (*BKC) 1 APPLIC TOPICAL (09:42)
[2021-05-20] MEDS: predniSONE 5 MG TABLET 15 MG PO (09:42)
[2021-05-20] MEDS: MAGNESIUM HYDROXIDE SUSP 30 ML UDC PO (09:43)
[2021-05-20] MEDS: GABAPENTIN 100 MG CAPSULE PO (09:43)
[2021-05-20] MEDS: DOCUSATE SODIUM 100 MG CAPSULE PO (09:43)
[2021-05-20] MEDS: EZETIMIBE 10 MG TABLET PO (09:43)
[2021-05-20] MEDS: allopurinoL 150 MG TABLET PO (09:43)
--- NOTE | 2021-05-20 10:55 | PC.NURSE ---
This patient, Tegan Martines, was transferred to [facility] in [place] on 05/20/21 at 1055. Personal belongings sent with patient. Report given to CRYSTAL Garcia. Appropriate documentation sent with patient.
--- NOTE | 2021-05-20 11:49 | ADMGEN ---
This patient, Tegan Martines, was admitted to 2 Medical Room 240-. Patient/family oriented to hospital policies and general routines including ID bracelet, bed and alarms, visiting hours, pain management, procedures, bathroom and other care routines, personal items, smoking policy, room service/diet, and visiting hours. Information on how to activate the Rapid Response Team has been discussed. Patient/Family are encouraged to report perceived risks to care and to ask questions if they do not understand what they are told or what they should do.
[2021-05-20] MEDS: SODIUM CHLORIDE 0.9% IV 1,000 ML 100 ML IV CONT (14:20)
--- NOTE | 2021-05-20 17:59 | WPDGIPROGNO ---
Progress Note: A&P Assessment and Plan (1) Acute on chronic blood loss anemia: Code(s): D62 - Acute posthemorrhagic anemia Status: Acute Assessment and Plan: it does not seem to be gi source, had hematuria and also use of blood thinner currently on hold will follow [place], call if questions (2) E coli bacteremia: Code(s): R78.81 - Bacteremia; B96.20 - Unspecified Escherichia coli [E. coli] as the cause of diseases classified elsewhere Status: Acute Assessment and Plan: sepsis with bacteremia, on iv antibiotics (3) Fecal impaction: Code(s): K56.41 - Fecal impaction Status: Acute Assessment and Plan: treated medically, no report of blood in stools per rn family (4) Chronic indwelling Hines catheter: Code(s): Z97.8 - Presence of other specified devices Status: Acute (5) Paroxysmal atrial fibrillation: Code(s): I48.0 - Paroxysmal atrial fibrillation Status: Acute (6) Pressure ulcer of sacral region, stage 4: Code(s): L89.154 - Pressure ulcer of sacral region, stage 4 Status: Acute Subjective Date/time seen: 05/20/21 17:59 Interval history: no more hematuria, had + E coli bacteremia and adequately on antibiotics. No overt gib. Received blood transfusion after drop in hb Review of Systems Review of Systems: All systems reviewed & are unremarkable except as noted in HPI and below Exam Const: General: cooperative, comfortable, no acute distress and ill appearing chronically HENMT: General nose exam: Normal nares present Eyes: Sclera: sclerae normal Neck: Neck: supple Resp: Auscultation: clear to auscultation bilaterally Cardio: Rhythm: abnormal rhythm irregularly irregular GI: GI Palp: Yes Soft to palpation, No Tenderness to palpation present (GI) and No Guarding due to palpation present (GI) Auscultation: normal bowel sounds Urinary Catheter: Urinary Catheter: patent and draining and urine cloudy Skin: Other: chronic decubitus ulcer Neuro: Speech: normal speech Extrem: General: normal to inspection Psych: Mental Status: mental status grossly normal Objective Data Vital Signs Vital Signs: Vital Signs - 24 hr 05/19/21 18:00 05/19/21 20:00 05/19/21 20:02 Temperature 98.6 F Pulse Rate 81 80 75 Respiratory Rate 17 Blood Pressure 138/80 Pulse Oximetry 96 05/20/21 00:00 05/20/21 04:00 05/20/21 08:00 Temperature 98.7 F 98.8 F 98.8 F Pulse Rate 66 66 62 Respiratory Rate 17 17 16 Blood Pressure 117/64 109/66 131/63 Pulse Oximetry 97 98 99 05/20/21 09:42 05/20/21 09:50 05/20/21 10:05 Temperature 97.2 F L 97.0 F L Pulse Rate 62 63 78 Respiratory Rate 14 14 Blood Pressure 123/61 115/51 L Pulse Oximetry 97 98 05/20/21 11:05 05/20/21 12:05 05/20/21 13:05 Temperature 98.1 F 97.6 F 98.5 F Pulse Rate 61 64 66 Respiratory Rate 16 16 16 Blood Pressure 118/55 L 122/57 L 128/57 L Pulse Oximetry 100 99 99 05/20/21 14:05 05/20/21 14:30 Temperature 98.9 F 98.5 F Pulse Rate 69 67 Respiratory Rate 16 17 Blood Pressure 115/53 L 122/57 L Pulse Oximetry 100 99 Intake/Output Intake/Output: Intake & Output 05/17/21 05/18/21 05/19/21 05/20/21 23:59 23:59 23:59 23:59 Intake Total 7687 229 0177 Output Total 1300 600 Balance 1150 -660 460 Meds/Results Medications: Active Medications Generic Name Dose Route Start Last Admin Trade Name Freq PRN Reason Stop Dose Admin Hydrocodone Bitart/Acetaminophen 7.5 - 325 tab 05/19/21 08:43 05/20/21 02:42 Hydrocodone/Acetaminophen (*Crx) 7.5-325 Mg Tablet PO 1 tab QID PRN Administration Pain 4-10 Allopurinol 150 mg 05/19/21 09:00 05/20/21 09:43 Allopurinol 150 Mg Tablet PO 150 mg DAILY OG Administration Bisacodyl 10 mg 05/19/21 08:43 Bisacodyl 10 Mg Suppository RECTAL DAILY PRN Constipation Diclofenac Sodium 1 applic 05/19/21 08:43 05/20/21 09:42 Diclofenac Sodium 1% 100 Gm Ge
[2021-05-20] MEDS: ESCITALOPRAM OXALATE 10 MG TABLET PO (22:17)
[2021-05-21] VITALS (8 sets, daily range): BP systolic 111–147; BP diastolic 51–74; PULSE 59–73; RESP 14–21; TEMP 36.2–37.4; O2SAT 99–100
[2021-05-21] MEDS: SOD HYPOCHLORITE 1/4 STRENGTH 473 ML 1 APPLIC TOPICAL ×3 (01:30→21:28)
[2021-05-21] MEDS: HYDROcodone/acetaminophen (*CRX) 7.5-325 MG TABLET PO ×2 (01:34→21:29)
[2021-05-21 05:49] LABS: Basophils Percent Auto 0.1 % (0.2-1.2); Eosinophils Percent Auto 0.2 % (0-4.4); Hematocrit 26.3 % (37.0-47.0); Hemoglobin 8.2 g/dL (12.0-15.0); Immature Granulocyte Absolute 0.05 K/mm3 (0.00-0.031); Immature Granulocyte Percent A 0.6 % (0-0.5); Mean Corpuscular HGB Conc 31.2 g/dl (32-36); Mean Corpuscular Hemoglobin 24.3 pg (26-34); Mean Platelet Volume 11.8 fl (7.4-10.4); Monocytes Absolute Auto 0.8 K/mm3 (0.1-0.6); Neutrophils Absolute Auto 7.2 K/mm3 (1.3-6.7); Neutrophils Percent Auto 83.1 % (45.5-73.1); Platelet Count Result 166 k/mm3 (150-375); Red Blood Count 3.37 M/mm3 (4.2-5.4); Red Cell Distribution Width 17.9 % (11.5-14.5); White Blood Count 8.6 K/mm3 (4.5-10.0)
[2021-05-21 05:55] LABS: INR 1.1
[2021-05-21 06:13] LABS: Anion Gap 9 mmol/L (8-16); Blood Urea Nitrogen 74 mg/dL (7-17); Calcium 8.7 mg/dL (8.4-10.2); Carbon Dioxide 23 mmol/L (22-30); Chloride 101 mmol/L (98-107); Estimated CRCL calculation 35 ml/min; Estimated Glomerular Filt Rate 44; Glucose 87 mg/dL (65-110); Magnesium 2.6 mg/dL (1.6-2.3); Potassium 3.6 mmol/L (3.4-5.0); Sodium 133 mmol/L (137-145)
--- NOTE | 2021-05-21 07:49 | P.PNIM_ITS ---
Progress Note: A&P Assessment and Plan (1) Urinary tract infection: Qualifiers: Hematuria presence: with hematuria Urinary tract infection type: acute cystitis Qualified Code(s): N30.01 - Acute cystitis with hematuria Code(s): N39.0 - Urinary tract infection, site not specified Status: Acute Assessment and Plan: UTI with hemorrhagic cystitis secondary to chronic catheter -will continue to hold anticoagulation at this time and plan to restart maybe tomorrow if her urine continues to be clear. Her hgb was 6.9 today and she is getting 1PRBC. -continue ceftriaxone (changed to 2 g due to bacteremia), await culture and sensitivities. -Hines catheter changed since admission (2) Sepsis: Qualifiers: Acute renal failure type: unspecified Sepsis acute organ dysfunction status: with acute organ dysfunction Sepsis type: sepsis due to unspecified organism Severe sepsis acute organ dysfunction type: acute renal failure Severe sepsis shock status: without septic shock Qualified Code(s): A41.9 - Sepsis, unspecified organism; R65.20 - Severe sepsis without septic shock; N17.9 - Acute kidney failure, unspecified Code(s): A41.9 - Sepsis, unspecified organism Status: Acute Assessment and Plan: Present on admission supported by fever, tachycardia, and acute on chronic renal failure in the setting of urinary tract infection. - Lactic acid levels within normal limits. - Blood pressures have responded to IV fluids, renal function improving -urine culture growing E coli and both blood cultures positive for Gram-negative bacilli -continue ceftriaxone (3) Pressure ulcer of sacral region, stage 4: Code(s): L89.154 - Pressure ulcer of sacral region, stage 4 Status: Acute Assessment and Plan: Chronic finding for the patient. This does not look acutely infected. Wound nurse consulted. (4) Diastolic heart failure: Code(s): I50.30 - Unspecified diastolic (congestive) heart failure Status: Chronic Assessment and Plan: Patient appeared dry on admission and received IV fluids -will give another 1L of fluids due to ALEXNADRA and decreased appetite -home Lasix on hold -encourage oral hydration (5) Elevated troponin: Code(s): R77.8 - Other specified abnormalities of plasma proteins Status: Acute Assessment and Plan: Patient is not having any chest pain likely this is elevated in the setting of her congestive heart failure and worsening kidney function -flat, no chest pain (6) Paroxysmal atrial fibrillation: Code(s): I48.0 - Paroxysmal atrial fibrillation Status: Acute Assessment and Plan: Continue metoprolol -hold apixaban due to hematuria but restart as soon as possible for stroke prophylaxis (7) Hypertension: Code(s): I10 - Essential (primary) hypertension Status: Chronic Assessment and Plan: Last blood pressure 131/63 but were much lower on admission -will continue with hydralazine (with parameters) and metoprolol (8) Acute on chronic renal failure: Code(s): N17.9 - Acute kidney failure, unspecified; N18.9 - Chronic kidney disease, unspecified Status: Acute Assessment and Plan: Improving with IV fluids -give 1L of NS -consider more IV fluids if creatinine has not improved by tomorrow although I suspect it will (9) Chronic anemia: Code(s): D64.9 - Anemia, unspecified Status: Acute
[2021-05-21] MEDS: predniSONE 5 MG TABLET 15 MG PO (10:18)
[2021-05-21] MEDS: allopurinoL 150 MG TABLET PO (10:19)
[2021-05-21] MEDS: APIXABAN 5 MG TABLET PO ×2 (10:19→21:28)
[2021-05-21] MEDS: GABAPENTIN 100 MG CAPSULE PO (10:20)
[2021-05-21] MEDS: EZETIMIBE 10 MG TABLET PO (10:20)
[2021-05-21] MEDS: METOPROLOL TARTRATE 25 MG TABLET 75 MG PO ×2 (10:21→21:28)
[2021-05-21] MEDS: PANTOPRAZOLE 40 MG TABLET PO ×2 (10:23→21:28)
[2021-05-21] MEDS: SODIUM CHLORIDE 0.9% IV 250 ML 50 ML IV CONT (11:39)
--- NOTE | 2021-05-21 11:41 | PCNFU ---
Nutrition Follow-Up Complete: Increased protein/calorie needs related to increased demands for wound healing as evidenced by unhealed stage IV pressure ulcer on sacrum. Goal: Patient to consume 50% of meals/supplements or greater. Patient is meeting current goal. No new goal to report. Pt current nutrition is Heart Healthy with Ensure Compact BID and Bladimir BID. Last recorded weight is 82.7 kg, down from 82.7 kg on admit. Bowel Motility:+BM reported 05/21 Labs Reviewed:BUN 74,Cr 1.4,Mg 2.6 Meds Noted:[place],Rocephin,Lexapro,Zetia,Lopressor,Protonix,NS Additional Notes: Nutrition follow up. Patient remains on a heart healthy diet with Ensure compact and Bladimir BID. Oral Intake: has improved, 95-100% of meals. Skin: stage iv sacrum. Agree with diet orders. Monitoring: Follow up every 5 days.
[2021-05-21] MEDS: ESCITALOPRAM OXALATE 10 MG TABLET PO (21:28)
[2021-05-22] VITALS (10 sets, daily range): BP systolic 120–159; BP diastolic 56–71; PULSE 54–71; RESP 12–16; TEMP 36–36.6; O2SAT 97–100
[2021-05-22] MEDS: HYDROcodone/acetaminophen (*CRX) 7.5-325 MG TABLET PO ×2 (02:48→19:58)
[2021-05-22] MEDS: DOCUSATE SODIUM 100 MG CAPSULE PO (08:59)
[2021-05-22] MEDS: MAGNESIUM HYDROXIDE SUSP 30 ML UDC PO (08:59)
[2021-05-22] MEDS: METOPROLOL TARTRATE 25 MG TABLET 75 MG PO ×2 (09:00→19:59)
[2021-05-22] MEDS: PANTOPRAZOLE 40 MG TABLET PO ×2 (09:00→20:01)
[2021-05-22] MEDS: APIXABAN 5 MG TABLET PO ×2 (09:01→20:01)
[2021-05-22] MEDS: GABAPENTIN 100 MG CAPSULE PO (09:01)
[2021-05-22] MEDS: EZETIMIBE 10 MG TABLET PO (09:02)
[2021-05-22] MEDS: predniSONE 5 MG TABLET 15 MG PO (09:02)
[2021-05-22] MEDS: allopurinoL 150 MG TABLET PO (09:02)
[2021-05-22] MEDS: SOD HYPOCHLORITE 1/4 STRENGTH 473 ML 1 APPLIC TOPICAL ×2 (16:53→20:01)
[2021-05-22 19:35] LABS: Basophils Percent Auto 0.3 % (0.2-1.2); Eosinophils Percent Auto 0.1 % (0-4.4); Hematocrit 31.4 % (37.0-47.0); Hemoglobin 9.5 g/dL (12.0-15.0); Immature Granulocyte Absolute 0.05 K/mm3 (0.00-0.031); Immature Granulocyte Percent A 0.7 % (0-0.5); Lymphocytes Absolute Auto 0.59 K/mm3 (0.9-3.2); Lymphocytes Percent Auto 7.8 % (18.3-44.2); Mean Corpuscular HGB Conc 30.3 g/dl (32-36); Mean Corpuscular Hemoglobin 24.4 pg (26-34); Mean Corpuscular Volume 80.5 fl (80-100); Mean Platelet Volume 12.4 fl (7.4-10.4); Monocytes Absolute Auto 0.5 K/mm3 (0.1-0.6); Monocytes Percent Auto 6.3 % (2.6-8.5); Neutrophils Absolute Auto 6.5 K/mm3 (1.3-6.7); Neutrophils Percent Auto 84.8 % (45.5-73.1); Platelet Count Result 216 k/mm3 (150-375); Red Cell Distribution Width 18.1 % (11.5-14.5); White Blood Count 7.6 K/mm3 (4.5-10.0)
[2021-05-22 19:52] LABS: Anion Gap 6 mmol/L (8-16); Blood Urea Nitrogen 64 mg/dL (7-17); Calcium 9.2 mg/dL (8.4-10.2); Carbon Dioxide 25 mmol/L (22-30); Chloride 100 mmol/L (98-107); Estimated CRCL calculation 34 ml/min; Estimated Glomerular Filt Rate 48; Glucose 128 mg/dL (65-110); Sodium 131 mmol/L (137-145)
[2021-05-22] MEDS: ESCITALOPRAM OXALATE 10 MG TABLET PO (20:01)
[2021-05-23] VITALS (10 sets, daily range): BP systolic 118–149; BP diastolic 52–70; PULSE 57–67; RESP 12–16; TEMP 36.1–37.6; O2SAT 96–100
[2021-05-23 06:16] LABS: Anion Gap 5 mmol/L (8-16); Blood Urea Nitrogen 59 mg/dL (7-17); Calcium 8.9 mg/dL (8.4-10.2); Carbon Dioxide 25 mmol/L (22-30); Chloride 101 mmol/L (98-107); Estimated CRCL calculation 36 ml/min; Estimated Glomerular Filt Rate 53; Glucose 90 mg/dL (65-110); Magnesium 2.6 mg/dL (1.6-2.3); Potassium 3.9 mmol/L (3.4-5.0); Sodium 131 mmol/L (137-145)
[2021-05-23] MEDS: HYDROcodone/acetaminophen (*CRX) 7.5-325 MG TABLET PO (06:34)
[2021-05-23] MEDS: METOPROLOL TARTRATE 25 MG TABLET 75 MG PO ×2 (09:57→21:55)
[2021-05-23] MEDS: predniSONE 5 MG TABLET 15 MG PO (09:58)
[2021-05-23] MEDS: APIXABAN 5 MG TABLET PO ×2 (09:58→21:55)
[2021-05-23] MEDS: EZETIMIBE 10 MG TABLET PO (09:58)
[2021-05-23] MEDS: allopurinoL 150 MG TABLET PO (09:58)
[2021-05-23] MEDS: GABAPENTIN 100 MG CAPSULE PO (09:58)
[2021-05-23] MEDS: SOD HYPOCHLORITE 1/4 STRENGTH 473 ML 1 APPLIC TOPICAL ×2 (10:03→21:59)
[2021-05-23] MEDS: PANTOPRAZOLE 40 MG TABLET PO ×2 (10:04→21:55)
[2021-05-23] MEDS: DOCUSATE SODIUM 100 MG CAPSULE PO (10:04)
[2021-05-23] MEDS: MAGNESIUM HYDROXIDE SUSP 30 ML UDC PO (10:04)
--- NOTE | 2021-05-23 20:35 | PM.CNGS ---
Assessment and Plan Assessment and plan (1) Pressure ulcer of sacral region, stage 4: Onset Date: Unknown Code(s): L89.154 - Pressure ulcer of sacral region, stage 4 Status: Acute Assessment and Plan: this is the main reason for my consultation. Hospitalists are planning at some point after consultation with Infectious Disease to send the patient back to an extended care facility. However, there is necrotic tissue within the decubitus. I will talk to the patient's daughter who is a patient makes decisions but the patient is alert and seems to be of sound mind to make her own decisions. She indicated she would be willing for further debridement to be taken place but would want to have sedation or general anesthesia. Will ask hospitalist service to approve patient for general anesthesia or sedation. Would also need to have the patient off the Eliquis for 36-48 hours so may need to stop again tomorrow if her thinking of proceeding. Will talk to daughter and see if she feels patient will tolerate general anesthesia and wound debridement. (2) E coli bacteremia: Onset Date: ~05/2021 Code(s): R78.81 - Bacteremia; B96.20 - Unspecified Escherichia coli [E. coli] as the cause of diseases classified elsewhere Status: Acute Assessment and Plan: Since E coli came from the blood and urine it is more likely that it was a urinary tract infection rather than this sacral decubitus that caused her bacteremia, however cannot say quickly if she was having diarrhea and was getting into the wound that she might not have been able to be seated and she may have some element of some osteomyelitis of the bone of the sacrum since there is some exposed. (3) Chronic anemia: Onset Date: Unknown Code(s): D64.9 - Anemia, unspecified Status: Acute Assessment and Plan: See hospitalist's notes . Possibly secondary to anemia of chronic disease with the patient's multiple medical problems. History of Present Illness Consult details Consult date: 05/23/21 Reason for consult: wound care (Patient has a chronic stage IV sacral decubitus. Dr. Mccollum from the hospitalist service looked at it and thought there was perhaps Necrotic tissue within it and tunneling cephalad.) Requesting physician: Karmen Mcneill MD Narrative: This patient is a pleasant but debilitated 76-year-old black female apparently presented to the hospital with weakness and was found to have sepsis on blood cultures. Also found to have a UTI with the same type of bacteria found in the blood. However, the patient has a stage IV sacral decubitus which she states has been present for at least 8-10 months. She has been residing at [facility] and they have been caring for the wound there. Our wound care nurses have seen her and have ordered Dakin solution to the area. When she was admitted the patient was on blood thinner for her atrial fibrillation but apparently this has been held now. I was asked to see the patient to evaluate possible necrotic tissue within the wound whether not this might be the source of her bacteremia or whether it needed further intervention prior to being released back to the . Review of Systems Constitutional: Constitutional: Reports as per HPI and Denies headache(s) Eyes: Eyes: Denies loss of vision and Denies eye pain ENT: Reports Normal hearing present, Denies change in voice, Denies dizziness and Denies headache(s) Cardiovascular: Cardiovascular: Denies chest pain and Denies dyspnea Comments: History of paroxysmal atrial fibrillation was off anticoagulation for a couple of days but restarted on 05/23 0900 Respiratory: Respiratory: Denies dyspnea and Denies wheezing Gastrointestinal: Comments: history of recent rectal impaction admits to poor appetite. 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
[2021-05-23] MEDS: ESCITALOPRAM OXALATE 10 MG TABLET PO (21:55)
[2021-05-24] VITALS (9 sets, daily range): BP systolic 121–164; BP diastolic 55–63; PULSE 58–107; RESP 14–20; TEMP 36.2–36.7; O2SAT 98–100
[2021-05-24 06:16] LABS: Anion Gap 0 mmol/L (8-16); Blood Urea Nitrogen 60 mg/dL (7-17); Calcium 9.2 mg/dL (8.4-10.2); Carbon Dioxide 26 mmol/L (22-30); Chloride 105 mmol/L (98-107); Estimated CRCL calculation 43 ml/min; Estimated Glomerular Filt Rate > 60; Glucose 89 mg/dL (65-110); Magnesium 2.4 mg/dL (1.6-2.3); Potassium 4.2 mmol/L (3.4-5.0); Sodium 131 mmol/L (137-145)
[2021-05-24 08:13] LABS: Basophils Percent Auto 0.2 % (0.2-1.2); Eosinophils Percent Auto 0.5 % (0-4.4); Hematocrit 27.9 % (37.0-47.0); Hemoglobin 8.2 g/dL (12.0-15.0); Immature Granulocyte Absolute 0.17 K/mm3 (0.00-0.031); Immature Granulocyte Percent A 2.1 % (0-0.5); Lymphocytes Absolute Auto 1.06 K/mm3 (0.9-3.2); Mean Corpuscular HGB Conc 29.4 g/dl (32-36); Mean Corpuscular Volume 81.8 fl (80-100); Mean Platelet Volume 10.7 fl (7.4-10.4); Monocytes Absolute Auto 0.6 K/mm3 (0.1-0.6); Monocytes Percent Auto 7.6 % (2.6-8.5); Neutrophils Absolute Auto 6.2 K/mm3 (1.3-6.7); Neutrophils Percent Auto 76.6 % (45.5-73.1); Platelet Count Result 214 k/mm3 (150-375); Red Blood Count 3.41 M/mm3 (4.2-5.4); Red Cell Distribution Width 18.1 % (11.5-14.5); White Blood Count 8.2 K/mm3 (4.5-10.0)
[2021-05-24 08:53] LABS: Hypochromasia 1+ (NORMAL); Platelet Estimate Adequate (Adequate)
[2021-05-24 08:54] LABS: Anisocytosis 1+ (NORMAL); Ovalocytes 1+ (NORMAL); Poikilocytosis 1+ (NORMAL)
[2021-05-24] MEDS: predniSONE 5 MG TABLET 15 MG PO (09:05)
[2021-05-24] MEDS: GABAPENTIN 100 MG CAPSULE PO (09:06)
[2021-05-24] MEDS: APIXABAN 5 MG TABLET PO ×2 (09:06→22:03)
[2021-05-24] MEDS: EZETIMIBE 10 MG TABLET PO (09:06)
[2021-05-24] MEDS: allopurinoL 150 MG TABLET PO (09:06)
[2021-05-24] MEDS: PANTOPRAZOLE 40 MG TABLET PO ×2 (09:07→22:02)
[2021-05-24] MEDS: METOPROLOL TARTRATE 25 MG TABLET 75 MG PO ×2 (09:07→22:03)
[2021-05-24] MEDS: SOD HYPOCHLORITE 1/4 STRENGTH 473 ML 1 APPLIC TOPICAL ×2 (09:07→22:07)
[2021-05-24] MEDS: MAGNESIUM HYDROXIDE SUSP 30 ML UDC PO (09:21)
[2021-05-24] MEDS: DOCUSATE SODIUM 100 MG CAPSULE PO (09:21)
--- NOTE | 2021-05-24 12:05 | WPDINFPN2 ---
Progress Note: A&P Assessment and Plan (1) E coli bacteremia: Onset Date: ~05/2021 Code(s): R78.81 - Bacteremia; B96.20 - Unspecified Escherichia coli [E. coli] as the cause of diseases classified elsewhere Status: Acute Assessment and Plan: E coli bacteremia with infection due to UTI. REC Ctx through W Am dose, then 3 days cefdinir. I disc with her that her steroids and her chronic Hines put her at risk for future infections, but that chronic antibiotic suppression is not indicated. Call if Qs Subjective Date/time seen: 05/24/21 12:05 Objective Data Vital Signs Vital Signs: Vital Signs - 24 hr 05/23/21 14:00 05/23/21 18:00 05/23/21 20:00 Temperature 36.9 C 37.6 C H Pulse Rate 61 67 Respiratory Rate 16 12 Blood Pressure 118/52 L 125/53 L Pulse Oximetry 100 99 99 05/23/21 21:55 05/23/21 22:00 05/24/21 02:00 Temperature 37.5 C 36.7 C Pulse Rate 66 60 77 Respiratory Rate 16 16 Blood Pressure 128/53 L 126/55 L Pulse Oximetry 98 98 05/24/21 06:00 05/24/21 09:07 05/24/21 10:00 Temperature 36.6 C 36.4 C Pulse Rate 60 64 65 Respiratory Rate 16 14 Blood Pressure 133/61 164/63 H Pulse Oximetry 100 100 Intake/Output Intake/Output: Intake & Output 05/21/21 05/22/21 05/23/21 05/24/21 23:59 23:59 23:59 23:59 Intake Total 2580 1470 1900 400 Output Total 1450 1050 1300 700 Balance 1130 420 600 -300 Meds/Results Medications: Active Medications Generic Name Dose Route Start Last Admin Trade Name Freq PRN Reason Stop Dose Admin Hydrocodone Bitart/Acetaminophen 7.5 - 325 tab 05/19/21 08:43 05/23/21 06:34 Hydrocodone/Acetaminophen (*Crx) 7.5-325 Mg Tablet PO 1 tab QID PRN Administration Pain 4-10 Allopurinol 150 mg 05/19/21 09:00 05/24/21 09:06 Allopurinol 150 Mg Tablet PO 150 mg DAILY OG Administration Apixaban 5 mg 05/23/21 09:00 05/24/21 09:06 Apixaban 5 Mg Tablet PO 5 mg Q12HR OG Administration Bisacodyl 10 mg 05/19/21 08:43 Bisacodyl 10 Mg Suppository RECTAL DAILY PRN Constipation Cefdinir 300 mg 05/27/21 09:00 Cefdinir 300 Mg Capsule PO 05/29/21 21:01 Q12HR [facility] Diclofenac Sodium 1 applic 05/19/21 08:43 05/20/21 09:42 Diclofenac Sodium 1% 100 Gm Gel (*[facility]) TOPICAL 1 applic Q8H PRN Administration pain Docusate Sodium 100 mg 05/19/21 09:00 05/24/21 09:21 Docusate Sodium 100 Mg Capsule PO 100 mg DAILY OG Administration Ezetimibe 10 mg 05/19/21 09:00 05/24/21 09:06 Ezetimibe 10 Mg Tablet PO 10 mg DAILY OG Administration Escitalopram Oxalate 10 mg 05/19/21 21:00 05/23/21 21:55 Escitalopram Oxalate 10 Mg Tablet PO 10 mg HS [facility] Administration Gabapentin 100 mg 05/19/21 09:00 05/24/21 09:06 Gabapentin 100 Mg Capsule PO 100 mg DAILY OG Administration Hydralazine HCl 100 mg 05/19/21 09:00 05/21/21 07:48 Hydralazine Hcl 50 Mg Tablet PO Not Given Q8HR [facility] Ceftriaxone Sodium 2 gm in 100 mls @ 200 mls/hr 05/20/21 06:00 05/24/21 06:15 Rocephin 2 Gm/D5w 100 Ml IVPB 05/26/21 06:01 Infused Q24H [facility] Infusion Magnesium Hydroxide 30 ml 05/19/21 09:00 05/24/21 09:21 Magnesium Hydroxide Susp 30 Ml Udc PO 30 ml QAM OG Administration Metoprolol Tartrate 75 mg 05/19/21 09:00 05/24/21 09:07 Metoprolol Tartrate 25 Mg Tablet PO 75 mg Q12HR OG Administration Ondansetron HCl 4 mg 05/18/21 12:16 Ondansetron Inj 4 Mg/2 Ml Vial IV PUSH Q4H PRN Nausea Pantoprazole Sodium 40 mg 05/19/21 09:00 05/24/21 09:07 Pantoprazole 40 Mg Tablet PO 40 mg Q12HR OG Administration Prednisone 15 mg 05/19/21 09:00 05/24/21 09:05 Prednisone 5 Mg Tablet PO 15 mg DAILY@0800 OG Administration Sodium Hypochlorite 1 applic 05/19/21 09:00 05/24/21 09:07 Sod Hypochlorite 1/4 Strength 473 Ml TOPICAL 1 applic Q12HR OG Administration Radiology Results: ITS Impressions Chest X-
--- NOTE | 2021-05-24 13:34 | PM.IMPN ---
Progress Note: A&P Assessment and Plan (1) Septicemia: Code(s): A41.9 - Sepsis, unspecified organism Status: Acute Assessment and Plan: Present on admission supported by fever, tachycardia, and acute on chronic renal failure in the setting of complicated UTI. Lactic acid levels within normal limits. Blood pressure was soft and did respond to IV fluids. UCx and BCx (2of2) growing E coli sensitive to ceftriaxone. She remains on ceftriaxone 2gm Q24h. ID consulted and appreciate their input. Plan for ceftriaxone through 05/26 and then Cefdinir fo 3 more days. (2) Urinary tract infection: Qualifiers: Hematuria presence: with hematuria Urinary tract infection type: acute cystitis Qualified Code(s): N30.01 - Acute cystitis with hematuria Code(s): N39.0 - Urinary tract infection, site not specified Status: Acute Assessment and Plan: Complicated UTI with hemorrhagic cystitis secondary to chronic catheter. UCx growing EColi sensitive to Rocephin. Hines catheter changed since admission. As above (3) Pressure ulcer of sacral region, stage 4: Onset Date: Unknown Code(s): L89.154 - Pressure ulcer of sacral region, stage 4 Status: Acute Assessment and Plan: Chronic finding for the patient. She has had this for over a year. She has a Hines in to keep this area dry. There is exposed bone per notes. Wound nurse consulted. General Surgery consulted. Possible debridement being planned. Okay to hold Eliquis if needed. (4) Elevated troponin: Code(s): R77.8 - Other specified abnormalities of plasma proteins Status: Acute Assessment and Plan: Troponin 0.046 on admisison. Patient is not having any chest pain so unclear why this was drawn. No EKG changes to suggest ischemia. [place] elevated Trop related to the septicemia and worsening kidney function and not CHF causing the nonischemic myocardial injury. (5) Acute on chronic renal failure: Code(s): N17.9 - Acute kidney failure, unspecified; N18.9 - Chronic kidney disease, unspecified Status: Acute Assessment and Plan: Baseline Cr 1.2-1.6. Cr on admission was 2.1. Cr improved with IV fluids. Cr now 1.0 and better than baseline and suspect related to being of her Lasix 80mg BID. Resume Lasix at low dose and follow. (6) Diastolic heart failure: Code(s): I50.30 - Unspecified diastolic (congestive) heart failure Status: Chronic Assessment and Plan: Patient appeared dry on admission and received IV fluids. Home Lasix on hold. Will resume Lasix at lower dose and advance as needed. (7) Paroxysmal atrial fibrillation: Code(s): I48.0 - Paroxysmal atrial fibrillation Status: Acute Assessment and Plan: HR stable. Normal sinus by EKG. Continue metoprolol. Apixaban resumed for stroke prophylaxis (8) Hypertension: Code(s): I10 - Essential (primary) hypertension Status: Chronic Assessment and Plan: Patient's blood pressure was reviewed on 05/24 Blood pressure remains well controlled except mildly elevated at times. Will continue current medications with hydralazine (with parameters) and metoprolol. (9) Chronic anemia: Onset Date: Unknown Code(s): D64.9 - Anemia, unspecified Status: Acute Assessment and Plan: Hemoglobin baseline 8-10 range on bjorn review (but not many old values). Hgb 7.6 on admssion here but dropped to 6.9 felt related to dilution and hematuria on top of chronic anemia. She was transfused 1U PRBC. Hgb climbed to the 8-9 range and stable. Apixaban resumed on 05/23/21 and no recurent hematuria. GI consulted but GI bleed considered unlikely (10) Fecal impaction: Code(s): K56.41 - Fecal impaction Status: Acute Assessment and Plan: Pt had CT Abdomen on 05/18 showing marked fecal impaction. KUB showing large volume of stool in the colon. Multiple stools documen
--- NOTE | 2021-05-24 14:11 | CONS_ITS ---
DATE OF CONSULTATION: 05/24/2021 REASON FOR CONSULTATION: UTI and bacteremia. HISTORY OF PRESENT ILLNESS: A 76-year-old female who has chronic sarcoidosis. She is on steroids as a result. She also has a decubitus ulcer and has had a Hines catheter for urinary diversion since September last year. This is by her history. She is largely bedbound due to her sarcoidosis by her description. She presented to the hospital on May 18 with gross hematuria in her catheter as well as generalized weakness and decreased level of consciousness. She had questionable rigors on the evening prior to admission. Here, she has been given ceftriaxone and consultation requested. She denies any current complaints and is unaware of the progress in terms of her decubitus ulcer. ALLERGIES: NONE PERTINENT. HABITS: No tobacco, alcohol, or illicit drugs. CURRENT MEDICATIONS: Prednisone 15 mg daily. PAST MEDICAL HISTORY: Chronic anemia, apparently alpha thalassemia, stage 3 renal insufficiency, diastolic heart failure, fecal impaction this admission, GERD, hyperlipidemia, hypertension, osteoarthritis, PAF, RLS, bowel resection and hernia repair, partial hysterectomy, BTL. FAMILY HISTORY: Not pertinent to her present illness. SOCIAL HISTORY: She is . Two children. detention resident. Retired from post office. REVIEW OF SYSTEMS: It is somewhat compromised by the patient's memory. 14-point review otherwise negative. PHYSICAL EXAMINATION: GENERAL: This is an elderly female who appears her actual age. No acute distress. VITAL SIGNS: Afebrile since arrival. T-max 37.6 several days ago, now afebrile, 164/63, 65, 14, 100% saturation. SKIN: Warm and dry. No rashes. NODES: She has no cervical adenopathy. EENT: Fair teeth restorations. The oropharynx, oral mucosa normal. Conjunctivae are normal. Pupils equal, round, reactive. LUNGS: Clear to auscultation and percussion. NECK: No meningismus, mass or tenderness. CARDIAC: Regular rate and rhythm. No murmur or gallop. Pulses 2+ and equal. ABDOMEN: Morbidly obese, nontender. No organomegaly. No masses. EXTREMITIES: No clubbing, cyanosis, or edema. No skin breakdown. RADIOLOGY: Abdomen and pelvic CT on arrival, marked fecal impaction, nonobstructing left kidney stone, osteoarthritis in her hips. Hines catheter in place. LABORATORY DATA: Blood cultures and urine cultures May 18 with E coli, relatively susceptible. Repeat blood cultures from yesterday, no growth after short incubation. White blood cell count 11.8 on arrival, normal since then, hemoglobin 8.2, platelets are 214, differential normal. She has mild hyponatremia. BUN 60, creatinine 1.0, down from 1.4. Urinalysis, multiple abnormalities, which are reviewed. Her SARS-CoV-2 PCR was nonreactive. ASSESSMENT: 1. Escherichia coli bacteremia due to urinary tract infection. Other sources are unlikely. I doubt this is a contaminant. Other considered sources from my standpoint would include skin soft tissue, including her decubitus, lower respiratory, primary bloodstream, biliary, lower GI. 2. Fecal impaction, not resulting in infection. This does increase her risk for urinary tract infection, although probably minimal given her Hines catheter in place. 3. Chronic Hines catheter. 4. Decubitus ulcer. 5. Immunosuppressed and sarcoidosis. RECOMMENDATIONS: 1. Given her predisposing factor, she is at risk for recurrent infections. I discussed that with her. 2. I would not recommend chronic antibiotic suppression and in fact doing so is relatively contraindicated. 3. Continue ceftriaxone until a.m. dose 05/26, then 3 days additional of oral cefdinir. Thank you very much for asking me to see her. Call if further questions.
[2021-05-24] MEDS: HYDROcodone/acetaminophen (*CRX) 7.5-325 MG TABLET PO (14:39)
[2021-05-24] MEDS: FUROSEMIDE 20 MG TABLET PO (16:26)
[2021-05-24] MEDS: ESCITALOPRAM OXALATE 10 MG TABLET PO (22:04)
[2021-05-25] VITALS (8 sets, daily range): BP systolic 128–171; BP diastolic 56–81; PULSE 53–84; RESP 14–20; TEMP 36.2–37.1; O2SAT 96–100
[2021-05-25 05:47] LABS: Basophils Percent Auto 0.3 % (0.2-1.2); Eosinophils Percent Auto 0.5 % (0-4.4); Hematocrit 28.1 % (37.0-47.0); Hemoglobin 8.2 g/dL (12.0-15.0); Immature Granulocyte Absolute 0.16 K/mm3 (0.00-0.031); Lymphocytes Absolute Auto 1.12 K/mm3 (0.9-3.2); Mean Corpuscular HGB Conc 29.2 g/dl (32-36); Mean Corpuscular Hemoglobin 24.3 pg (26-34); Mean Corpuscular Volume 83.4 fl (80-100); Mean Platelet Volume 11.4 fl (7.4-10.4); Monocytes Absolute Auto 0.5 K/mm3 (0.1-0.6); Monocytes Percent Auto 6.4 % (2.6-8.5); Neutrophils Absolute Auto 6.1 K/mm3 (1.3-6.7); Neutrophils Percent Auto 76.8 % (45.5-73.1); Platelet Count Result 237 k/mm3 (150-375); Red Blood Count 3.37 M/mm3 (4.2-5.4); Red Cell Distribution Width 18.1 % (11.5-14.5)
[2021-05-25 05:55] LABS: Anion Gap 3 mmol/L (8-16); Blood Urea Nitrogen 53 mg/dL (7-17); Calcium 9.2 mg/dL (8.4-10.2); Carbon Dioxide 28 mmol/L (22-30); Chloride 101 mmol/L (98-107); Estimated CRCL calculation 43 ml/min; Estimated Glomerular Filt Rate > 60; Glucose 82 mg/dL (65-110); Magnesium 2.3 mg/dL (1.6-2.3); Potassium 4.1 mmol/L (3.4-5.0); Sodium 132 mmol/L (137-145)
[2021-05-25 06:27] LABS: Platelet Estimate Adequate (Adequate)
[2021-05-25 06:28] LABS: Anisocytosis 2+ (NORMAL); Hypochromasia 1+ (NORMAL)
[2021-05-25] MEDS: polyethylene glycoL 3350 17 GM POWD.PACK PO (09:02)
[2021-05-25] MEDS: PANTOPRAZOLE 40 MG TABLET PO ×2 (09:02→23:06)
[2021-05-25] MEDS: GABAPENTIN 100 MG CAPSULE PO (09:03)
[2021-05-25] MEDS: DOCUSATE SODIUM 100 MG CAPSULE PO (09:03)
[2021-05-25] MEDS: FUROSEMIDE 20 MG TABLET PO ×2 (09:03→18:32)
[2021-05-25] MEDS: allopurinoL 150 MG TABLET PO (09:03)
[2021-05-25] MEDS: predniSONE 5 MG TABLET 15 MG PO (09:03)
[2021-05-25] MEDS: EZETIMIBE 10 MG TABLET PO (09:04)
[2021-05-25] MEDS: METOPROLOL TARTRATE 25 MG TABLET 75 MG PO ×2 (09:04→23:10)
[2021-05-25] MEDS: MAGNESIUM HYDROXIDE SUSP 30 ML UDC PO (09:05)
[2021-05-25] MEDS: SOD HYPOCHLORITE 1/4 STRENGTH 473 ML 1 APPLIC TOPICAL ×2 (09:07→23:13)
--- NOTE | 2021-05-25 14:18 | PM.IMPN ---
Progress Note: A&P Assessment and Plan (1) Septicemia: Code(s): A41.9 - Sepsis, unspecified organism Status: Acute Assessment and Plan: Present on admission supported by fever, tachycardia, and acute on chronic renal failure in the setting of complicated UTI. Lactic acid levels within normal limits. Blood pressure was soft and did respond to IV fluids. UCx and BCx (2of2) growing E coli sensitive to ceftriaxone. She remains on ceftriaxone 2gm Q24h. ID consulted and appreciate their input. Plan for ceftriaxone through 05/26 and then Cefdinir for 3 more days. (2) Urinary tract infection: Qualifiers: Hematuria presence: with hematuria Urinary tract infection type: acute cystitis Qualified Code(s): N30.01 - Acute cystitis with hematuria Code(s): N39.0 - Urinary tract infection, site not specified Status: Acute Assessment and Plan: Complicated UTI with hemorrhagic cystitis secondary to chronic catheter. UCx growing EColi sensitive to Rocephin. Hines catheter changed since admission. As above (3) Pressure ulcer of sacral region, stage 4: Onset Date: Unknown Code(s): L89.154 - Pressure ulcer of sacral region, stage 4 Status: Acute Assessment and Plan: Chronic finding for the patient. She has had this for over a year. She has a Hines in to keep this area dry. There is exposed bone per notes. Wound nurse consulted. General Surgery consulted. Possible debridement being planned. Okay to hold Eliquis if needed. Discussed with General Surgery and plans for debridement in 1-2 days. (4) Elevated troponin: Code(s): R77.8 - Other specified abnormalities of plasma proteins Status: Acute Assessment and Plan: Troponin 0.046 on admisison. Patient is not having any chest pain so unclear why this was drawn. No EKG changes to suggest ischemia. [place] elevated Trop related to the septicemia and worsening kidney function and not CHF causing the nonischemic myocardial injury. (5) Acute on chronic renal failure: Code(s): N17.9 - Acute kidney failure, unspecified; N18.9 - Chronic kidney disease, unspecified Status: Acute Assessment and Plan: Baseline Cr 1.2-1.6. Cr on admission was 2.1. Cr improved with IV fluids. Cr now 1.0 and better than baseline and suspect related to being off of her Lasix 80mg BID. We resumed Lasix at low dose and she is tolerating. BUN still elevated at 53 (but trending down) as well; probably related to the steroids. (6) Diastolic heart failure: Code(s): I50.30 - Unspecified diastolic (congestive) heart failure Status: Chronic Assessment and Plan: Patient appeared dry on admission and received IV fluids. Home Lasix on hold. We resumed Lasix at lower dose and she is toelrating. Follow (7) Paroxysmal atrial fibrillation: Code(s): I48.0 - Paroxysmal atrial fibrillation Status: Acute Assessment and Plan: HR stable. Normal sinus by EKG. Continue metoprolol. Apixaban resumed for stroke prophylaxis but held now for possible debridement. (8) Hypertension: Code(s): I10 - Essential (primary) hypertension Status: Chronic Assessment and Plan: Patient's blood pressure was reviewed on 05/25 Blood pressure elevated at times but overall stable. Will continue current medications with metoprolol. (9) Chronic anemia: Onset Date: Unknown Code(s): D64.9 - Anemia, unspecified Status: Acute Assessment and Plan: Hemoglobin baseline 8-10 range on bjorn review (but not many old values). Hgb 7.6 on admission here but dropped to 6.9 felt related to dilution and hematuria on top of chronic anemia. She was transfused 1U PRBC. Hgb climbed to the 8-9 range and stable. Apixaban resumed on 05/23/21 and no recurrent hematuria. GI consulted but GI bleed considered unlikely (10) Fecal impaction: Code(s): K56.41 - Fecal impaction
--- NOTE | 2021-05-25 22:35 | PM.PNGS ---
Progress Note: A&P Assessment and Plan (1) Pressure ulcer of sacral region, stage 4: Onset Date: Unknown Code(s): L89.154 - Pressure ulcer of sacral region, stage 4 Status: Acute Assessment and Plan: This is the main reason for our consultation. I have discussed with both the patient and her daughter Aisha Henao about a surgical intervention for debridement of the necrotic areas of this sacral decubitus and then applying a wound VAC. patient's wound care nurses saw her with me this date and after talking with her and her daughter they have approved proceeding with the procedure. Most likely will be able to put her on her left side and use IV sedation or general anesthesia to completed. Her Eliquis was held early this morning. (2) Chronic anemia: Onset Date: Unknown Code(s): D64.9 - Anemia, unspecified Status: Acute (3) E coli bacteremia: Onset Date: ~05/2021 Code(s): R78.81 - Bacteremia; B96.20 - Unspecified Escherichia coli [E. coli] as the cause of diseases classified elsewhere Status: Acute (4) Chronic indwelling Hines catheter: Code(s): Z97.8 - Presence of other specified devices Status: Acute Additional Plan Discussed patient's situation with Dr. Dominguez. He believes that she could stay a little bit longer on IV antibiotics Sineff going to do the debridement and can do it till but now we have a schedule for Monday and I just want her on it around the time of the surgery. Infectious Disease has seen the patient and recommended IV antibiotics through the and then some oral antibiotics. Time Spent With Patient Time with patient: 15 - 25 minutes Subjective Subjective Date/Time Seen: 05/25/21 07:35 patient states that she has been in her usual current state without significant pain but unable to get up on her own. Review of Systems Constitutional: Constitutional: Reports no additional constitutional complaints ENT: Reports other (Mucous Membranes moist.) Cardiovascular: Cardiovascular: Denies dyspnea Respiratory: Respiratory: Denies pain on inspiration and Denies dyspnea Musculoskeletal: Musculoskeletal: Reports other (No calf swelling or edema) Comments: Has muscllewasting and is not able get up out of bed on her own. Integumentary/Breasts: Skin/Breast: Reports system reviewed and no additional complaints, except as docu Comments: Severe sacral coccygeal decubitus ulcer with exposed bone in a few spots and some necrotic tissue covering approximately 50% of the mid and upper wound. See previous exam on consultation from 05/23 Psychiatric: Comments: does have some memory issues cord to the nurses and to her daughter who I talked to this evening. Hematologic/Lymphatic: Comments: Has anemia of chronic disease. Exam Const: General: cooperative, no acute distress, alert and awake Orientation/consciousness: patient oriented x3 HENMT: Mouth: Yes moist mucous membranes Neck: Neck: normal visual inspection Chest: Chest palpation & inspection: normal inspection of the chest Resp: Effort & Inspection: normal respiratory effort Auscultation: clear to auscultation bilaterally Cardio: Jugular venous distension: no JVD Rate: regular rate Rhythm: regular rhythm GI: Rectal Exam: deferred Back/Spine/Pelvis: Sacrum: other ( Large decubitus ulcer with 50% necrotic tissue along the inside layer) Other: there are few small spots of exposed sacral bone. Skin: Wounds: wounds noted ( See consult note. Has a large sacral decubitus with 50% necrotic tissue ) Neuro: General: patient oriented x3 and moves all extremities Speech: normal speech Extrem: General: normal exam except as noted Psych: Mental Status: mental status grossly normal Speech and movement: Normal speech and movement present Affect: normal affect Thought content: Yes Normal thought content present Objective Data Vital Signs Vital Signs: Vital Signs - 2
[2021-05-25] MEDS: ESCITALOPRAM OXALATE 10 MG TABLET PO (23:10)
[2021-05-26] VITALS (16 sets, daily range): BP systolic 116–194; BP diastolic 46–93; PULSE 53–80; RESP 10–20; TEMP 36.2–37.1; O2SAT 94–100
[2021-05-26 05:34] LABS: Basophils Percent Auto 0.1 % (0.2-1.2); Eosinophils Percent Auto 0.4 % (0-4.4); Hematocrit 28.5 % (37.0-47.0); Hemoglobin 8.4 g/dL (12.0-15.0); Immature Granulocyte Absolute 0.13 K/mm3 (0.00-0.031); Immature Granulocyte Percent A 1.8 % (0-0.5); Lymphocytes Absolute Auto 0.97 K/mm3 (0.9-3.2); Lymphocytes Percent Auto 13.8 % (18.3-44.2); Mean Corpuscular HGB Conc 29.5 g/dl (32-36); Mean Corpuscular Hemoglobin 24.3 pg (26-34); Mean Corpuscular Volume 82.4 fl (80-100); Mean Platelet Volume 10.6 fl (7.4-10.4); Monocytes Absolute Auto 0.5 K/mm3 (0.1-0.6); Neutrophils Absolute Auto 5.4 K/mm3 (1.3-6.7); Neutrophils Percent Auto 76.9 % (45.5-73.1); Platelet Count Result 256 k/mm3 (150-375); Red Blood Count 3.46 M/mm3 (4.2-5.4); Red Cell Distribution Width 18.4 % (11.5-14.5)
[2021-05-26 06:18] LABS: Albumin Level 2.5 g/dL (3.5-5.1); Anion Gap 2 mmol/L (8-16); Blood Urea Nitrogen 51 mg/dL (7-17); Calcium 9.3 mg/dL (8.4-10.2); Carbon Dioxide 28 mmol/L (22-30); Chloride 106 mmol/L (98-107); Estimated CRCL calculation 49 ml/min; Estimated Glomerular Filt Rate > 60; Glucose 83 mg/dL (65-110); Magnesium 2.3 mg/dL (1.6-2.3); Potassium 4.4 mmol/L (3.4-5.0); Sodium 136 mmol/L (137-145)
[2021-05-26 07:36] LABS: Hypochromasia 1+ (NORMAL); Platelet Estimate Adequate (Adequate)
[2021-05-26] MEDS: GABAPENTIN 100 MG CAPSULE PO (08:07)
[2021-05-26] MEDS: PANTOPRAZOLE 40 MG TABLET PO ×2 (08:07→20:46)
[2021-05-26] MEDS: predniSONE 5 MG TABLET 15 MG PO (08:08)
[2021-05-26] MEDS: METOPROLOL TARTRATE 25 MG TABLET 75 MG PO ×2 (08:08→20:47)
[2021-05-26] MEDS: FUROSEMIDE 20 MG TABLET PO ×2 (08:08→18:47)
[2021-05-26] MEDS: EZETIMIBE 10 MG TABLET PO (08:08)
--- NOTE | 2021-05-26 08:10 | P.HPUP_ITS ---
History and Physical Update Update Date/Time: 05/26/21 08:10 History and Physical has been reviewed, including an updated exam of the patient. There are changes in the patient's condition. Please see recent inpatient hospitalist's notes and my consultation of 2020. Patient has developed further necrosis within her sacral decubitus and we are planning to proceed with further debridement. Risks, benefits, and alternatives have been discussed and questions answered. Rich carranza and her daughter Ms Henao agree to proceed with procedure. DJ
[2021-05-26] MEDS: POTASSIUM/PHOSPHORUS/SODIUM 1.5 GM PACKET 1 PACKET PO (08:25)
--- NOTE | 2021-05-26 08:50 | WPDANESEPPF ---
Anes - Initial Pre Proc Eval Procedure: Operation Date: 05/26/21 12:00 Proposed Procedures p Debridement of Sacral Decubitus with Application of Wound Vac - Reynaldo Ochoa MD Date/Time: 05/26/21 08:50 Surgeon: Agnes Ferrer PA-C Pre Op Diagnosis: SEPSIS,UTI,ANEMIA Patient Data Age: 76 Gender: F Height: 1.73 m Weight: 84.8 kg Last Vital Signs Temp 36.6 C 05/26/21 06:00 Pulse 75 05/26/21 08:08 Resp 18 05/26/21 06:00 BP 156/78 H 05/26/21 06:00 Pulse Ox 98 05/26/21 06:00 Allergies Allergy/AdvReac Type Severity Reaction Status Date / Time codeine AdvReac Nausea Verified 05/18/21 13:10 Home Medications Medication Instructions Recorded Confirmed Type acetaminophen [Tylenol 8 Hour] 650 mg PO Q8H 02/26/21 05/18/21 History allopurinol 150 mg PO DAILY 02/26/21 05/18/21 History aspirin 81 mg PO DAILY 02/26/21 05/18/21 History docusate sodium [Colace] 100 mg PO DAILY 02/26/21 05/18/21 History escitalopram oxalate 10 mg PO HS 02/26/21 05/18/21 History ezetimibe 10 mg PO DAILY 02/26/21 05/18/21 History furosemide 80 mg PO BID 02/26/21 05/18/21 History gabapentin 100 mg PO DAILY 02/26/21 05/18/21 History hydralazine 100 mg PO TID 02/26/21 05/18/21 History hydrocodone-acetaminophen 7.5 - 325 tablet PO QID PRN 02/26/21 05/18/21 History lidocaine [Lidoderm] 2 patch TRANSDERMAL DAILY 02/26/21 05/18/21 History metoprolol tartrate 75 mg PO BID 02/26/21 05/18/21 History pantoprazole 40 mg PO BID 02/26/21 05/18/21 History prednisone 15 mg PO DAILY 02/26/21 05/18/21 History apixaban [Eliquis] 5 mg PO BID 05/18/21 05/18/21 History artificial tears with lanolin 1 applic EACH EYE DAILY PRN 05/18/21 05/18/21 History [Artificial Tears] ascorbic acid (vitamin C) 500 mg PO BID 05/18/21 05/18/21 History bisacodyl 10 mg RECTAL DAILY PRN 05/18/21 05/18/21 History diclofenac sodium 2 g TOPICAL Q8H PRN 05/18/21 05/18/21 History magnesium hydroxide [Milk of 400 mg PO DAILY PRN 05/18/21 05/18/21 History Magnesia] [id number] K 1 tablet PO DAILY 05/18/21 05/18/21 History [Adults Multivitamin] sodium phosphates [Fleet Enema] 118 ml RECTAL ONCE 05/18/21 05/18/21 History spironolactone [Aldactone] 25 mg PO DAILY 05/18/21 05/18/21 History Laboratory Tests 05/26/21 05/26/21 05/26/21 05:05 05:05 05:05 WBC 7.0 K/mm3 K/mm3 (4.5-10.0) RBC 3.46 M/mm3 L M/mm3 (4.2-5.4) Hgb 8.4 g/dL L g/dL (12.0-15.0) Hct 28.5 % L % (37.0-47.0) MCV 82.4 fl fl (80-100) MCH 24.3 pg L pg (26-34) MCHC 29.5 g/dl L g/dl (32-36) RDW 18.4 % H % (11.5-14.5) Plt Count 256 k/mm3 k/mm3 (150-375) MPV 10.6 fl H fl (7.4-10.4) Immature Gran % (Auto) 1.8 % H % (0-0.5) Neut % (Auto) 76.9 % H % (45.5-73.1) Lymph % (Auto) 13.8 % L % (18.3-44.2) [place] % (Auto) 7.0 % % (2.6-8.5) Eos % (Auto) 0.4 % % (0-4.4) Baso % (Auto) 0.1 % L % (0.2-1.2) Lymph # (Auto) 0.97 K/mm3 K/mm3 (0.9-3.2) [place] # (Auto) 0.5 K/mm3 K/mm3 (0.1-0.6) Eos # (Auto) 0.0 K/mm3 K/mm3 (0-0.3) Baso # (Auto) 0.0 K/mm3 K/mm3 (0.0-0.1) Abs Immat Gran (auto) 0.13 K/mm3 H K/mm3 (0.00-0.031) Absolute Neuts (auto) 5.4 K/mm3 K/mm3 (1.3-6.7) Absolute Nucleated RBC 0.0 K/mm3 K/mm3 (0.0-0.012) Nucleated RBC % 0.0 % % (0.0-0.2) Platelet Estimate Adequate (Adequate) Hypochromasia 1+ (NORMAL) Sodium 136 mmol/L L mmol/L (137-145) Potassium 4.4 mmol/L mmol/L (3.4-5.0) Chloride 106 mmol/L mmol/L (98-107) Carbon Dioxide 28 mmol/L mmol/L (22-30) Anion Gap 2 mmol/L L mmol/L (8-16) BUN 51 mg/dL H mg/dL (7-17) Creatinine 1.00 mg/dL mg/dL (0.7-1.0) Estim Creat Clear Calc 49 ml/min ml/min Estimat
[2021-05-26] MEDS: LACTATED RINGERS 1,000 ML 30 ML IV CONT (11:08)
--- NOTE | 2021-05-26 11:25 | PCNFU ---
Nutrition Follow-Up Complete: Increased protein/calorie needs related to increased demands for wound healing as evidenced by unhealed stage IV pressure ulcer on sacrum. Goal: Patient to consume 50% of meals/supplements or greater. Patient is progressing towards goal. We will continue current goal. Pt current nutrition is NPO. Last recorded weight is 84.8 kg, up from 84 kg Bowel Motility:+BM reported 05/22 Labs Reviewed:Na 136,Alb 2.5,Hct 28.5,Hgb 8.4 Meds Noted:LR,Zetia,Protonix,Prednisone,Lopressor,Lexapro,Lasix. Additional Notes: Patient seen today for nutrition follow up. NPO for wound debridement today. She states her food has been great, eating greater than 75% of meals. Skin: IV pressure ulcer on saccum. Patient had been drinking protein modular of Bladimir BID. Recommend continuing Bladimir BID when diet order advances. Agree with diet orders. Monitoring: Follow up every 5 days.
--- NOTE | 2021-05-26 11:27 | SUR.PREOP ---
1055; PT BP HIGH. 194/87. HR 56. PT DENIES PAIN. 1105; RECHECKED BP, 171/80, 1120; DR ROD NOTIFIED OF BOTH BP'S.
--- NOTE | 2021-05-26 13:36 | W.PM.PROC2 ---
Procedure Note - Detailed Date of Procedure 05/26/21 Pre-op Diagnosis 1. Sacrococcygeal decubitus ulcer with necrotic tissue (stage IV) with exposed bone 2. SEPSIS,UTI,ANEMIA Post-op Diagnosis same Procedure Performed 1. Excisional debridement of skin, subcutaneous tissue, muscle, and some bone sacral coccygeal area 2. Application of wound VAC Surgeon Reynaldo Ochoa MD Economic Analysis Director CRYSTAL Rogers, [place] 1st assist Anesthesia general (With use of LMA) Indications See recent consult note from 05/23/2021 patient is an elderly patient with sarcoidosis who is immobile. She has had a sacral coccygeal decubitus for more than 1 year. However she, came back to the hospital recently with bacteremia thought to be related to her Hines catheter and UTI. Findings Four small areas of exposed bone on the posterior sacrum A 10 x 5 by 4 cm area of necrosis of subcutaneous tissue, muscle, and some skin on the superior right lateral edge of the previously existing sacral coccygeal decubitus ulcer. Description of Procedure Patient was brought into the operating room and after induction of adequate LMA G IV S sedation the patient was rolled onto her left side fully padded and the area of the sacrococcygeal decubitus ulcer exposed. Following this the area was prepped with Betadine. Following this a timeout was done with the team confirming patient the site of surgery being the sacrococcygeal decubitus. Following this I carefully used a 10 blade knife to excise the dark brown necrotic tissue starting in the base of the wound superiorly and extending up on the skin a wedge of skin and subcutaneous tissue proximally 4 x 3 x 2 cm in size was excised from the superior right lateral portion of the wound. In this area the skin had already started to dive back. Following this the entire left superior side of the wound was debrided with a thin layer which exposed good healthy bleeding tissue and Bovie cautery was used for hemostasis. I did not use local anesthetic as it could have the epinephrine in it that would inhibit healing. Once all the wound bed had been cleared of any brownish were not chronic appearing material I then used a bone rongeur to carefully take away the exposed bone back to level with the surrounding granulation tissue. Approximately 3-4 mm of bone was excising each area and this was sent for pathology. There was some good bleeding at the bone level. I discussed this with the wound VAC/wound care nurses and they will place Adaptic over the areas of exposed bone and hopefully the granulation will occur up through the bone at these sites. Following this carefully reexamined the entire wound surface for bleeding and stopped any bleeding with Bovie cautery. Following this we turned over to the wound care nurses who applied the standard wound VAC to the area. This seemed to maintain good suction. Following this because of the patient having leaking from her Hines catheter we removed the old Hines which was a 16 size and we replaced it with a size 20 with a 30 cc balloon to try to prevent continued leakage of urine around the catheter which we had discovered that has been happening when we changed her dressing and inspected the wound 2 days ago. Today the nurse on the floor even told me that she had a bladder spasm and urinated around the previously indwelling Hines catheter and had to be cleaned up. Also of note the surgical nurse stated that the perineal area where the Hines was coming out was significantly soiled probably with feces and had to be clean thoroughly before the new Hines could be placed put in their full informed than nursing service to try to increase hygiene in the genital in farheen Hines area. Implants None Estimated Blood Loss 20 Urine Output 600 Drains No Packing Yes (Wound VAC sponges and wound VAC applied) Pathology yes (1. Skin and subcutaneous tissues at the margin of a large decubitus ulcer 2. Pieces of exposed bone from the sacrum at th
--- NOTE | 2021-05-26 16:00 | PM.IMPN ---
Progress Note: A&P Assessment and Plan (1) Septicemia: Code(s): A41.9 - Sepsis, unspecified organism Status: Acute Assessment and Plan: Present on admission supported by fever, tachycardia, and acute on chronic renal failure in the setting of complicated UTI. Lactic acid levels within normal limits. Blood pressure was soft and did respond to IV fluids. UCx and BCx (2of2) growing E coli sensitive to ceftriaxone. She completed ceftriaxone 2gm Q24h today with plans to start Cefdinir x3 days tomorrow. ID consulted and appreciate their input. (2) Urinary tract infection: Qualifiers: Hematuria presence: with hematuria Urinary tract infection type: acute cystitis Qualified Code(s): N30.01 - Acute cystitis with hematuria Code(s): N39.0 - Urinary tract infection, site not specified Status: Acute Assessment and Plan: Complicated UTI with hemorrhagic cystitis secondary to chronic catheter. UCx growing EColi sensitive to Rocephin. Hines catheter changed to a higher caliber. As above. Monitor for leakage around catheter (3) Pressure ulcer of sacral region, stage 4: Onset Date: Unknown Code(s): L89.154 - Pressure ulcer of sacral region, stage 4 Status: Acute Assessment and Plan: Chronic finding for the patient. She has had this for over a year. She has a Hines in to keep this area dry. There is exposed bone per notes. Wound nurse consulted. General Surgery consulted and patine has undergone debridement today with wound vac placed. Plan to change out wound vac in 2 days then possible home after that. Resume Eliquis tomorrow. Discussed with General Surgery (4) Elevated troponin: Code(s): R77.8 - Other specified abnormalities of plasma proteins Status: Acute Assessment and Plan: Troponin 0.046 on admisison. Patient is not having any chest pain so unclear why this was drawn. No EKG changes to suggest ischemia. [place] elevated Trop related to the septicemia and worsening kidney function and not CHF causing the nonischemic myocardial injury. (5) Acute on chronic renal failure: Code(s): N17.9 - Acute kidney failure, unspecified; N18.9 - Chronic kidney disease, unspecified Status: Acute Assessment and Plan: Baseline Cr 1.2-1.6. Cr on admission was 2.1. Cr improved with IV fluids. Cr now 1.0 and better than baseline and suspect related to being off of her Lasix 80mg BID. We resumed Lasix at lower dose and she is tolerating. BUN still elevated at 51 (but trending down) as well; probably related to the steroids. (6) Diastolic heart failure: Code(s): I50.30 - Unspecified diastolic (congestive) heart failure Status: Chronic Assessment and Plan: Patient appeared dry on admission and received IV fluids. Home Lasix was on hold. We resumed Lasix at lower dose and she is tolerating this well. Follow (7) Paroxysmal atrial fibrillation: Code(s): I48.0 - Paroxysmal atrial fibrillation Status: Acute Assessment and Plan: HR stable. Normal sinus by EKG. Continue metoprolol. Apixaban resumed for stroke prophylaxis but held now for possible debridement. (8) Hypertension: Code(s): I10 - Essential (primary) hypertension Status: Chronic Assessment and Plan: Patient's blood pressure was reviewed on 05/26 Blood pressure elevated at times and even higher farheen-operatively - stress response? Will continue current medications with metoprolol. Add Norvasc. Stop hydralazine (9) Chronic anemia: Onset Date: Unknown Code(s): D64.9 - Anemia, unspecified Status: Acute Assessment and Plan: Hemoglobin baseline 8-10 range on chart review (but not many old values). Hgb 7.6 on admission here but dropped to 6.9 felt related to dilution and hematuria on top of chronic anemia. She was transfused 1U PRBC. Hgb climbed to the 8-9 range and stable. Apixaban resumed on 05/23/21 and
[2021-05-26] MEDS: HYDROcodone/acetaminophen (*CRX) 7.5-325 MG TABLET 1 TAB PO (18:47)
[2021-05-26] MEDS: ESCITALOPRAM OXALATE 10 MG TABLET PO (20:46)
[2021-05-27 01:50] VITALS: BP 168/68; PULSE 52; RESP 16; TEMP 36.2; O2SAT 100
[2021-05-27 04:21] VITALS: BP 169/76; PULSE 63; RESP 16; TEMP 36.3; O2SAT 100
[2021-05-27 06:06] LABS: Hematocrit 29.7 % (37.0-47.0); Hemoglobin 8.7 g/dL (12.0-15.0); Mean Corpuscular HGB Conc 29.3 g/dl (32-36); Mean Platelet Volume 9.7 fl (7.4-10.4); Platelet Count Result 253 k/mm3 (150-375); Red Blood Count 3.62 M/mm3 (4.2-5.4); Red Cell Distribution Width 18.4 % (11.5-14.5); White Blood Count 7.3 K/mm3 (4.5-10.0)
[2021-05-27] MEDS: HYDROcodone/acetaminophen (*CRX) 7.5-325 MG TABLET 1 TAB PO ×2 (06:09→13:47)
[2021-05-27 06:23] LABS: Anion Gap 3 mmol/L (8-16); Blood Urea Nitrogen 41 mg/dL (7-17); Calcium 9.2 mg/dL (8.4-10.2); Carbon Dioxide 29 mmol/L (22-30); Chloride 104 mmol/L (98-107); Estimated CRCL calculation 54 ml/min; Estimated Glomerular Filt Rate > 60; Glucose 74 mg/dL (65-110); Phosphorus 2.6 mg/dL (2.5-4.5); Potassium 4.6 mmol/L (3.4-5.0); Sodium 136 mmol/L (137-145)
--- NOTE | 2021-05-27 09:18 | WPDANESPN ---
Anes - Prog Note Post-Op Date/Time: 05/27/21 09:18 Cardiovascular status: normal Respiratory status: normal Airway patency: baseline Mental status: baseline Post-Op hydration status: normal Vital Signs: Last Vital Signs Temp 36.3 C L 05/27/21 04:21 Pulse 63 05/27/21 04:21 Resp 16 05/27/21 04:21 BP 169/76 H 05/27/21 04:21 Pulse Ox 100 05/27/21 04:21 Pain Score (VAS): 2 I/O: Intake & Output 05/26/21 05/27/21 05/27/21 23:59 07:59 15:59 Intake Total 420 100 Output Total 300 650 Balance 120 -550 Laboratory Tests 05/27/21 05:18 05/27/21 05:18 05/27/21 05/27/21 05:18 05:18 WBC 7.3 RBC 3.62 L Hgb 8.7 L Hct 29.7 L MCV 82.0 MCH 24.0 L MCHC 29.3 L RDW 18.4 H Plt Count 253 MPV 9.7 Sodium 136 L Potassium 4.6 Chloride 104 Carbon Dioxide 29 Anion Gap 3 L BUN 41 H D Creatinine 0.90 Estim Creat Clear Calc 54 Estimated GFR > 60 Glucose 74 Calcium 9.2 Phosphorus 2.6 Post-procedural complaints: none Patient Feedback: Patient satisfied with anesthetic care.
[2021-05-27] MEDS: CEFDINIR 300 MG CAPSULE PO ×2 (09:26→21:11)
[2021-05-27] MEDS: FUROSEMIDE 20 MG TABLET PO ×2 (09:26→17:49)
[2021-05-27] MEDS: GABAPENTIN 100 MG CAPSULE PO (09:26)
[2021-05-27] MEDS: METOPROLOL TARTRATE 25 MG TABLET 75 MG PO ×2 (09:26→21:11)
[2021-05-27] MEDS: EZETIMIBE 10 MG TABLET PO (09:27)
[2021-05-27] MEDS: allopurinoL 150 MG TABLET PO (09:27)
[2021-05-27] MEDS: predniSONE 5 MG TABLET 15 MG PO (09:27)
[2021-05-27] MEDS: PANTOPRAZOLE 40 MG TABLET PO ×2 (09:27→21:11)
[2021-05-27] MEDS: amLODIPine BESYLATE 5 MG TABLET PO (09:27)
[2021-05-27] MEDS: polyethylene glycoL 3350 17 GM POWD.PACK PO (09:28)
[2021-05-27] MEDS: DOCUSATE SODIUM 100 MG CAPSULE PO (09:31)
[2021-05-27] MEDS: MAGNESIUM HYDROXIDE SUSP 30 ML UDC PO (09:31)
--- NOTE | 2021-05-27 13:48 | PM.IMPN ---
Progress Note: A&P Assessment and Plan (1) Septicemia: Code(s): A41.9 - Sepsis, unspecified organism Status: Acute Assessment and Plan: Present on admission supported by fever, tachycardia, and acute on chronic renal failure in the setting of complicated UTI. Lactic acid levels within normal limits. Blood pressure was soft and did respond to IV fluids. UCx and BCx (2of2) growing E coli sensitive to ceftriaxone. She had one dose of Cefepine in the ED (05/18) and then started on ceftriaxone 2gm Q24h on 05/19 (through 05/26). Started Cefdinir today for 3 days. ID consulted and appreciate their input. (2) Urinary tract infection: Qualifiers: Hematuria presence: with hematuria Urinary tract infection type: acute cystitis Qualified Code(s): N30.01 - Acute cystitis with hematuria Code(s): N39.0 - Urinary tract infection, site not specified Status: Acute Assessment and Plan: Complicated UTI with hemorrhagic cystitis secondary to chronic catheter. UCx growing EColi sensitive to Rocephin. Hines catheter changed to a higher caliber and is no longer leaking. As above. (3) Pressure ulcer of sacral region, stage 4: Onset Date: Unknown Code(s): L89.154 - Pressure ulcer of sacral region, stage 4 Status: Acute Assessment and Plan: Chronic finding for the patient. She has had this for over a year. She has a Hines in to keep this area dry. There is exposed bone per notes. Wound nurse consulted. General Surgery consulted and patine has undergone debridement today with wound vac placed. Plan to change out wound vac tomorrow then possible discharge after that. (4) Elevated troponin: Code(s): R77.8 - Other specified abnormalities of plasma proteins Status: Acute Assessment and Plan: Troponin 0.046 on admisison. Patient is not having any chest pain so unclear why this was drawn. No EKG changes to suggest ischemia. [place] elevated Trop related to the septicemia and worsening kidney function causing the nonischemic myocardial injury. (5) Acute on chronic renal failure: Code(s): N17.9 - Acute kidney failure, unspecified; N18.9 - Chronic kidney disease, unspecified Status: Acute Assessment and Plan: Baseline Cr 1.2-1.6. Cr on admission was 2.1. Cr improved with IV fluids. Cr now 0.9 and better than baseline and suspect related to being off of her Lasix 80mg BID. We resumed Lasix at lower dose and she is tolerating this well. BUN still elevated at 41but trending down; probably related to the steroids. (6) Diastolic heart failure: Code(s): I50.30 - Unspecified diastolic (congestive) heart failure Status: Chronic Assessment and Plan: Patient appeared dehydrated on admission and received IV fluids. Home Lasix was on hold. We resumed Lasix at lower dose and she is tolerating this well. Follow. (7) Paroxysmal atrial fibrillation: Code(s): I48.0 - Paroxysmal atrial fibrillation Status: Acute Assessment and Plan: HR stable. Normal sinus by EKG. Continue metoprolol. Apixaban resumed for stroke prophylaxis but then held for debridement. Resume ELiquis. (8) Hypertension: Code(s): I10 - Essential (primary) hypertension Status: Chronic Assessment and Plan: Patient's blood pressure was reviewed on 05/27 Blood pressure elevated at times so Norvasc added yesterday but not given. She did receive Norvasc this morning with her the Metoprolol. BP 169/76 this morning but has not been rechecked yet since morning medications. Follow. (9) Chronic anemia: Onset Date: Unknown Code(s): D64.9 - Anemia, unspecified Status: Acute Assessment and Plan: Hemoglobin baseline 8-10 range on chart review (but not many old values). Hgb 7.6 on admission here but dropped to 6.9 felt related to dilution and hematuria on top of chronic anemia. She was transfused 1U PRBC. Hgb climbed
[2021-05-27 14:00] VITALS: BP 118/64; PULSE 82; RESP 18; TEMP 36.7; O2SAT 98
[2021-05-27 17:48] VITALS: BP 113/59
[2021-05-27 21:11] VITALS: PULSE 76
[2021-05-27] MEDS: ESCITALOPRAM OXALATE 10 MG TABLET PO (21:11)
[2021-05-27] MEDS: APIXABAN 5 MG TABLET PO (21:11)
[2021-05-27 21:51] VITALS: BP 104/50; PULSE 75; RESP 16; TEMP 36.6; O2SAT 98
[2021-05-28] MEDS: HYDROcodone/acetaminophen (*CRX) 5-325 MG TABLET 1 TAB PO (04:52)
[2021-05-28 05:09] VITALS: BP 154/66; PULSE 76; RESP 16; TEMP 36.6; O2SAT 98
[2021-05-28 08:39] VITALS: PULSE 76
[2021-05-28] MEDS: allopurinoL 150 MG TABLET PO (08:39)
[2021-05-28] MEDS: METOPROLOL TARTRATE 25 MG TABLET 75 MG PO (08:39)
[2021-05-28] MEDS: APIXABAN 5 MG TABLET PO (08:39)
[2021-05-28] MEDS: FUROSEMIDE 20 MG TABLET PO (08:39)
[2021-05-28] MEDS: EZETIMIBE 10 MG TABLET PO (08:39)
[2021-05-28] MEDS: CEFDINIR 300 MG CAPSULE PO (08:39)
[2021-05-28] MEDS: GABAPENTIN 100 MG CAPSULE PO (08:39)
[2021-05-28] MEDS: PANTOPRAZOLE 40 MG TABLET PO (08:40)
[2021-05-28] MEDS: amLODIPine BESYLATE 5 MG TABLET PO (08:40)
[2021-05-28] MEDS: predniSONE 5 MG TABLET 15 MG PO (08:40)
[2021-05-28] MEDS: polyethylene glycoL 3350 17 GM POWD.PACK PO (08:40)
[2021-05-28] MEDS: MAGNESIUM HYDROXIDE SUSP 30 ML UDC PO (08:43)
[2021-05-28] MEDS: DOCUSATE SODIUM 100 MG CAPSULE PO (08:43)
--- NOTE | 2021-05-28 10:27 | PM.PNGS ---
Progress Note: A&P Assessment and Plan (1) Pressure ulcer of sacral region, stage 4: Onset Date: Unknown Code(s): L89.154 - Pressure ulcer of sacral region, stage 4 Status: Acute Assessment and Plan: This is the main reason for our consultation. today she is postop day 2 from an further debridement of his sacral decubitus to remove necrotic tissue. We had successful placement of a wound VAC without leakage for the last 2 days. I reviewed the patient's sacral decubitus wound after removing the wound VAC with our wound care nurses who saw her with me this date and after talking with her and Dr. Dominguez we are planning to have the patient return to the . Because the will have a different wound VAC system we will place Dakin solution dressing today and the ECF will apply there wound VAC upon her arrival later today or sometime through the weekend whenever there wound care system can have it available. ( Case management has already notified the ECF regarding the patient's need for this and they were supposed to be preparing). Her Eliquis was resumed yesterday morning and there has been no increased bleeding from the wound bed on the sacral decubitus into the wound VAC system.. (2) Chronic anemia: Onset Date: Unknown Code(s): D64.9 - Anemia, unspecified Status: Acute (3) E coli bacteremia: Onset Date: ~05/2021 Code(s): R78.81 - Bacteremia; B96.20 - Unspecified Escherichia coli [E. coli] as the cause of diseases classified elsewhere Status: Acute (4) Chronic indwelling Hines catheter: Code(s): Z97.8 - Presence of other specified devices Status: Acute Additional Plan Discussed patient's situation with Dr. Dominguez. He believes that she could go back to the ECF today medically. We also discussed bladder spasms and using oxybutynin. Also, if the patient does not absolutely need it consider stopping her Allopurinol since that inhibits wound healing. There is no reason to keep her from the Wound Care perspective. We know that the wound VAC will work. Apparently [facility] has a wound care system and can follow the patient there. If needed patient could be scheduled for a recheck at our wound care clinic if [employer] will provide transportation for her to get here. I would probably see her again in 2-3 weeks as long as wound VAC is working well. If there is no doctor to supervise her wound care at the [facility]. Depending on her insurance she may also has the option of the wound care facility that she started with at [facility]. Apparently they cared for the patient at the initial development of her wound late last year and at their rehab facility up until January of this year. Infectious Disease has seen the patient and recommended IV antibiotics through the and then some oral antibiotics. Subjective Subjective Date/Time Seen: 05/28/21 10:27 Post Op day: 2 ( Status post excisional debridement of sacral decubitus ulcer) Patient reports: no new complaints and feels better Interval history: The patient and staff report that there have been no further incidence of significant urine leakage contaminating the area of the wound or getting on her gown or bedding. (Probably improved with larger Hines with a 30 cc balloon and initiation of oxybutynin. Review of Systems Constitutional: Constitutional: Reports as per HPI, Reports no additional constitutional complaints and Denies headache(s) Eyes: Eyes: Denies loss of vision and Denies eye pain ENT: Reports Normal hearing present, Denies change in voice, Denies dizziness, Denies headache(s) and Reports other (Mucous Membranes moist.) Cardiovascular: Cardiovascular: Denies chest pain and Denies dyspnea Respiratory: Respiratory: Denies pain on inspiration, Denies dyspnea and Denies wheezing Gastrointestinal: Gastrointestinal: Denies abdominal pain and Denies vomiting Musculoskeletal:
--- NOTE | 2021-05-28 11:17 | PM.DS ---
DS: Admitting Diagnosis Admitting Diagnosis weakness, hematuria DS: Discharge Diagnosis Discharge Diagnosis (1) Septicemia: Code(s): A41.9 - Sepsis, unspecified organism Status: Acute Assessment and Plan: Present on admission supported by fever, tachycardia, and acute on chronic renal failure in the setting of complicated UTI. Lactic acid levels within normal limits. Blood pressure was soft and did respond to IV fluids. UCx and BCx (2of2) growing E coli sensitive to ceftriaxone. She had one dose of Cefepine in the ED (05/18) and then started on ceftriaxone 2gm Q24h on 05/19 (through 05/26). Changed to Cefdinir 05/27 to complete a total of 3 days. ID consulted and appreciate their input. (2) Urinary tract infection: Qualifiers: Hematuria presence: with hematuria Urinary tract infection type: acute cystitis Qualified Code(s): N30.01 - Acute cystitis with hematuria Code(s): N39.0 - Urinary tract infection, site not specified Status: Acute Assessment and Plan: Complicated UTI due to chronic indwelling Hines with hemorrhagic cystitis. UCx growing EColi sensitive to Rocephin. Hines catheter changed to a higher caliber and is no longer leaking. Concern for bladder spasm so Ditropan started. (3) Pressure ulcer of sacral region, stage 4: Onset Date: Unknown Code(s): L89.154 - Pressure ulcer of sacral region, stage 4 Status: Acute Assessment and Plan: Chronic finding for the patient. She has had this for over a year. She has a Hines in to keep this area dry. There is exposed bone noted. Wound nurse consulted. General Surgery consulted and patient underwent debridement 05/26 with wound vac placed. Plan for continued wound vac after discharge. Spoke with Care Coordination and this has been arranged at the senior care. GenSurg recommends holding Allopurinol for now to help improve wound healing. (4) Elevated troponin: Code(s): R77.8 - Other specified abnormalities of plasma proteins Status: Acute Assessment and Plan: Troponin 0.046 on admisison. Patient is not having any chest pain so unclear why this was drawn. No EKG changes to suggest ischemia. [place] elevated Trop related to the septicemia and worsening kidney function causing the nonischemic myocardial injury. (5) Acute on chronic renal failure: Code(s): N17.9 - Acute kidney failure, unspecified; N18.9 - Chronic kidney disease, unspecified Status: Acute Assessment and Plan: Baseline Cr 1.2-1.6. Cr on admission was 2.1. Cr improved with IV fluids. Cr now 0.9 and better than baseline and suspect related to being off of her Lasix 80mg BID. We resumed Lasix at lower dose and she is tolerating this well. BUN still elevated at 41 related to the ALEXANDRA and steroids but trending down. Patient may have been over-diuresed as well. Continue current Lasix dosing for now. (6) Diastolic heart failure: Code(s): I50.30 - Unspecified diastolic (congestive) heart failure Status: Chronic Assessment and Plan: Patient appeared dehydrated on admission and received IV fluids. Home Lasix was placed on hold. We resumed Lasix at lower dose and she is tolerating this well. Does not appear to be fluid overloaded. (7) Paroxysmal atrial fibrillation: Code(s): I48.0 - Paroxysmal atrial fibrillation Status: Acute Assessment and Plan: HR stable. Normal sinus by EKG. Continue metoprolol. Apixaban resumed for stroke prophylaxis and briefly held for debridement. No recurrent hematuria with resuming Eliquis. (8) Hypertension: Code(s): I10 - Essential (primary) hypertension Status: Chronic Assessment and Plan: Patient's blood pressure was monitored closely and was elevated at times so Norvasc added. We continued with her Metoprolol. Blood pressure improved. Follow. (9) Chronic anemia: Onset Date: Unknown Code(s): D64.9
[2021-05-28 14:00] VITALS: BP 152/60; PULSE 75; RESP 16; TEMP 36.6; O2SAT 98
== END 2021-05-28 18:40 | DRG 951 ==
LOC: ANHED 15:19 → ANHIMU 05-19 07:17 → ANH2MED 05-23 21:02 → ANHIMU 06-01 14:57
PROVIDERS: Hospitalist; Physician Assistant; Surgery; Admitting Provider Internal Medicine; Emergency Provider Emergency Medicine; Visit Provider Internal Medicine
PROC: 0QB10ZZ Excision of Sacrum, Open Approach (ICD-10-PCS; CPT 46040; principal; 2021-05-26 12:00)
DX: T83.511A Infection and inflammatory reaction due to indwelling urethral catheter, initial encounter (principal); A41.51 Sepsis due to Escherichia coli [E. coli]; N39.0 Urinary tract infection, site not specified; D64.9 Anemia, unspecified; I13.0 Hypertensive heart and chronic kidney disease with heart failure and stage 1 through stage 4 chronic kidney disease, or unspecified chronic kidney disease; N18.30 Chronic kidney disease, stage 3 unspecified; I50.32 Chronic diastolic (congestive) heart failure; L89.154 Pressure ulcer of sacral region, stage 4; N17.9 Acute kidney failure, unspecified; K56.41 Fecal impaction; Z20.822 Contact with and (suspected) exposure to COVID-19; D86.9 Sarcoidosis, unspecified; I48.0 Paroxysmal atrial fibrillation; Z79.01 Long term (current) use of anticoagulants
CPT/HCPCS: 36415; 36430; 36600; 70450; 71045; 74019; 74176; 80048; 80053; 80069; 81001; 82375; 82805; 82948; 83050; 83605; 83735; 83880; 84100; 84484; 85025; 85027; 85610; 85730; 86140; 86850; 86900; 86901; 86920; 87040; 87077; 87086; 87088; 87186; 88304; 88305; 88309; 88311; 93005; 93971; 96361; 96365; 96366; 96367; 96375; 99285; A9270; C9803; G0378; J0131; J0692; J0696; J2405; J2704; J7030; J7050; J7120; J7512; P9016; U0003; U0005

== ENCOUNTER 2021-07-04 20:25 | Inpatient (IN) | payer MEDICAID, SELFPAY ==
[2021-07-04] VITALS (8 sets, daily range): BP systolic 119–172; BP diastolic 74–88; PULSE 68–95; RESP 16–20; TEMP 38.2–38.8; O2SAT 94–99
--- NOTE | ~2021-07-04 | XR_ITS ---
EXAMINATION: XR chest 1V portable DATE: 07/04/2021 21:09 INDICATION: COVID presenting with shortness of breath TECHNIQUE: frontal view of the chest was obtained. COMPARISON: Chest radiograph dated 05/18/2021 FINDINGS: Patient is rotated towards the right. Mild patchy airspace opacities in the bilateral mid and lower l reji zones suspicious for pneumonia. No pleural effusion or pneumothorax. Cardiomegaly. Surgical clips at the left axilla. There are bridging osteophytes at multiple levels in the spine, consistent with diffuse idiopathic skeletal hyperostosis (DISH). Moderate right glenohumeral osteoarthritis. IMPRESSION: 1. Patchy airspace opacity in the bilateral mid and lower lung zones suspicious for pneumonia. Reviewed, dictated and finalized at location A.
--- NOTE | ~2021-07-04 | XR_ITS ---
EXAMINATION: XR chest 1V portable INDICATION: Shortness of breath TECHNIQUE: Portable AP chest at 1646 hours COMPARISON: 07/04/2021 FINDINGS: Diffuse opacities persist throughout all lung zones with slight improvement in the left mid and upper lung zones. No pleural effusion or pneumothorax is identified. Cardiomegaly is noted. Ther e is moderate osteoarthritis of the right glenohumeral joint. IMPRESSION: 1. Diffuse lung disease with interval improvement in the left mid and upper lung zones, consistent wi th pneumonia and/or pulmonary edema. Reviewed, dictated and finalized at location A. IMPRESSION: 1. Diffuse lung disease with interval improvement in the left mid and upper landen g zones, consistent with pneumonia and/or pulmonary edema.
--- NOTE | ~2021-07-04 | XR_ITS ---
EXAMINATION: XR chest 1V portable DATE: 07/09/2021 09:12 INDICATION: Shortness of breath. Pneumonia. TECHNIQUE: frontal view of the chest was obtained. COMPARISON: Chest radiograph dated 07/08/21 FINDINGS: Again seen are diffuse groundglass opacities with subtle air bronchograms throughout the right lung. Additional mild opacities at the left lower lung zone. No pneumothorax or definitive pleural effusion . Cardiomegaly. There are bridging osteophytes at multiple levels in the spine, consistent with diffu se idiopathic skeletal hyperostosis (DISH). Moderate right glenohumeral osteoarthritis. Surgical clip s at the left axilla. IMPRESSION: 1. No significant change in opacities throughout the right lung and in the left lower lung zone which could represent pneumonia or asymmetric pulmonary edema. 2. Cardiomegaly. Reviewed, dictated and finalized at location A.
--- NOTE | ~2021-07-04 | XR_ITS ---
EXAMINATION: XR chest 1V portable INDICATION: Shortness of breath TECHNIQUE: Portable AP chest at 1659 hours COMPARISON: 07/06/2021 FINDINGS: Patchy opacities persist throughout all lung zones with interval worsening. Cardiomegaly is noted. No definite pleural effusion or pneumothorax is identified. IMPRESSION: 1. Diffuse lung disease with interval worsening, consistent with pneumonia and/or pulmonary edema and /or acute respiratory distress syndrome (ARDS). Reviewed, dictated and finalized at location A. IMPRESSION: 1. Diffuse lung disease with interval worsening, consistent with pneumonia and/ or pulmonary edema and/or acute respiratory distress syndrome (ARDS).
--- NOTE | 2021-07-04 20:46 | PC.NURSE ---
ED MD trialed pt on RA, and O2 sats to 89%. MD into ED 1 and pt awoke, and while talking, O2 sats up to 93% without intervention. Per ED MD instructions, no supplemental O2 to be ordered at this time. will continue to monitor.
--- NOTE | 2021-07-04 21:15 | ED.SOB ---
HPI - SOB/Dyspnea General Chief Complaint: Shortness of Breath/Dyspnea Stated Complaint: covid + sob Time Seen by Provider: 07/04/21 20:26 History of Present Illness HPI Narrative: Patient is a 76-year-old female who presents ER with low oxygen saturation. Patient was diagnosed this week with COVID-19. She reports she had a test on Monday as well as (06/28 , 07/01). It is unknown which one came back positive. She denies any fevers or chills or sweats. No productive cough. She has history of sarcoidosis and does not typically wear any oxygen. Patient was hypoxic into the upper 80s persistently. She is now requiring 2 L of oxygen. Related Data Home Medications Medication Instructions Recorded Confirmed allopurinol 150 mg PO DAILY 02/26/21 05/18/21 aspirin 81 mg PO DAILY 02/26/21 05/18/21 docusate sodium [Colace] 100 mg PO DAILY 02/26/21 05/18/21 escitalopram oxalate 10 mg PO HS 02/26/21 05/18/21 ezetimibe 10 mg PO DAILY 02/26/21 05/18/21 gabapentin 100 mg PO DAILY 02/26/21 05/18/21 lidocaine [Lidoderm] 2 patch TRANSDERMAL DAILY 02/26/21 05/18/21 metoprolol tartrate 75 mg PO BID 02/26/21 05/18/21 pantoprazole 40 mg PO BID 02/26/21 05/18/21 prednisone 15 mg PO DAILY 02/26/21 05/18/21 Adults Multivitamin 1 tablet PO DAILY 05/18/21 05/18/21 Eliquis 5 mg PO BID 05/18/21 05/18/21 artificial tears with lanolin 1 applic EACH EYE DAILY PRN 05/18/21 05/18/21 ascorbic acid (vitamin C) 500 mg PO BID 05/18/21 05/18/21 bisacodyl 10 mg RECTAL DAILY PRN 05/18/21 05/18/21 diclofenac sodium 2 g TOPICAL Q8H PRN 05/18/21 05/18/21 spironolactone [Aldactone] 25 mg PO DAILY 05/18/21 05/18/21 Allergies Allergy/AdvReac Type Severity Reaction Status Date / Time codeine AdvReac Nausea Verified 05/18/21 13:10 Review of Systems Review of Systems: All systems reviewed & are unremarkable except as noted in HPI and below Constitutional: Constitutional: Denies chills, Denies fever(s) and Denies weakness ENT: Denies nasal congestion and Denies sore throat Cardiovascular: Cardiovascular: Denies chest pain, Denies rapid heart rate and Denies radiating jaw, neck or arm pain Respiratory: Respiratory: Denies cough, Denies dyspnea and Denies wheezing Gastrointestinal: Gastrointestinal: Denies abdominal pain, Denies nausea and Denies vomiting Integumentary/Breasts: Comments: Chronic buttock wound. No new wounds. [facility] Past Medical History Medical History (Updated 07/04/21 @ 22:04 by Marciano Beasley MD) Acute on chronic blood loss anemia Acute on chronic renal failure Alpha thalassemia Anemia Anemia CAD (coronary artery disease) Chronic indwelling Hines catheter Chronic renal failure, stage 3 (moderate) Congestive heart failure Diastolic heart failure DVT (deep venous thrombosis) E coli bacteremia (~05/2021) Elevated troponin Fecal impaction Gastroesophageal reflux disease Heart failure Hyperlipidemia Hypertension MRSA (methicillin resistant staph aureus) culture positive Osteoarthritis Paroxysmal atrial fibrillation Paroxysmal atrial fibrillation Pressure ulcer of sacral region, stage 4 (Unknown) Restless leg syndrome Sarcoidosis Surgical History Surgical History History of bilateral cataract extraction History of bowel resection History of hernia repair History of partial hysterectomy History of tubal ligation Family History Family History Mother Stomach cancer Social History Social History (Updated 05/18/21 @ 23:17 by Marie Harris PA-C) Social History: The patient is and 2 children. She is currently at [facility]. She is retired from the [employer]. Lifelong nonsmoker. No alcohol or illicit substance use. Emergency contact: Aisha Henao, daughter. Spiritual care concerns: No Exam Narrative: GENERAL: Chronically ill-appearing, well-nourished, a
[2021-07-04 21:18] LABS: Basophils Percent Auto 0.2 % (0.2-1.2); Hematocrit 33.3 % (37.0-47.0); Hemoglobin 10.3 g/dL (12.0-15.0); Immature Granulocyte Absolute 0.03 K/mm3 (0.00-0.031); Immature Granulocyte Percent A 0.7 % (0-0.5); Lymphocytes Absolute Auto 0.95 K/mm3 (0.9-3.2); Lymphocytes Percent Auto 21.2 % (18.3-44.2); Mean Corpuscular HGB Conc 30.9 g/dl (32-36); Mean Corpuscular Hemoglobin 24.5 pg (26-34); Mean Corpuscular Volume 79.1 fl (80-100); Mean Platelet Volume 10.7 fl (7.4-10.4); Monocytes Absolute Auto 0.2 K/mm3 (0.1-0.6); Monocytes Percent Auto 5.1 % (2.6-8.5); Neutrophils Absolute Auto 3.3 K/mm3 (1.3-6.7); Neutrophils Percent Auto 72.8 % (45.5-73.1); Platelet Count Result 216 k/mm3 (150-375); Red Blood Count 4.21 M/mm3 (4.2-5.4); Red Cell Distribution Width 17.8 % (11.5-14.5); White Blood Count 4.5 K/mm3 (4.5-10.0)
[2021-07-04 21:31] LABS: Alanine Aminotransferase 15 U/L (4-35); Albumin Level 2.8 g/dL (3.5-5.1); Alkaline Phosphatase 55 U/L (38-126); Anion Gap 6 mmol/L (8-16); Aspartate Amino Transferase 35 U/L (14-36); Bilirubin,Total 0.4 mg/dL (0.2-1.3); Blood Urea Nitrogen 27 mg/dL (7-17); Calcium 8.3 mg/dL (8.4-10.2); Carbon Dioxide 28 mmol/L (22-30); Chloride 103 mmol/L (98-107); Estimated CRCL calculation 46 ml/min; Estimated Glomerular Filt Rate > 60; Glucose 110 mg/dL (65-110); Potassium 2.5 mmol/L (3.4-5.0); Sodium 137 mmol/L (137-145)
[2021-07-04 21:43] LABS: D Dimer 4.23 ug/mL (<0.48)
[2021-07-04] MEDS: DEXAMETHASONE SOD PHOS INJ 4 MG/ML VIAL 6 MG IV PUSH (22:47)
[2021-07-04] MEDS: SODIUM CHLORIDE 0.9% IV 1,000 ML 100 ML (22:48)
--- NOTE | 2021-07-04 22:48 | PC.NURSE ---
OK per Dr Beasley to use IVF to dilute IV Potassium to prevent patient discomfort.
[2021-07-04] MEDS: POTASSIUM CHLORIDE 20 MEQ TABLET 40 MEQ PO (22:53)
--- NOTE | 2021-07-04 23:40 | PC.NURSE ---
Assumed car of pt at this time, report from Sachi ROJAS. Pt alert and upright on stretcher, on 2L NC in no obvious respiratory distress. Pt repositioned onto left side and linens changed. Updated on POC. No requests at this time.
[2021-07-05] VITALS (9 sets, daily range): BP systolic 149–174; BP diastolic 62–85; PULSE 66–127; RESP 16–18; TEMP 36.6–37.5; O2SAT 93–100; BMI 26.4
--- NOTE | 2021-07-05 01:01 | ADMGEN ---
This patient, Tegan Martines, was admitted to [facility] Surg Room 324-01 at 0100. Patient/family oriented to hospital policies and general routines including ID bracelet, bed and alarms, visiting hours, pain management, procedures, bathroom and other care routines, personal items, smoking policy, room service/diet, and visiting hours. Information on how to activate the Rapid Response Team has been discussed. Patient/Family are encouraged to report perceived risks to care and to ask questions if they do not understand what they are told or what they should do.
--- NOTE | 2021-07-05 02:25 | PM.IMHP ---
H&P: HPI History of Present Illness Date/Time: 07/05/21 02:25 Chief Complaint: COVID positive Narrative: Patient is a 76-year-old female who presents ER with low oxygen saturation from her longterm. She states that she was diagnosed with COVID-19 this week. She had a test done on Monday and (06/28, 07/01). She however denies any fever or chills or any cough she says she does not typically wear any oxygen but she was noted to be hypoxic in upper 80s persistent knee and required 2 L oxygen to keep the oxygen saturation up. 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 She also has sacral decubitus ulcer for which he is getting regular wound care in the longterm. She reports her wound is otherwise improving and had had any increased drainage or fever chills related to it. In the ER she had a chest x-ray done which showed patchy airspace opacity in the bilateral mid and lower lung zone suspicious for pneumonia. She is also noted to be a severely hypokalemic at 2.5. She getting admitted for further evaluation and management. Review of Systems Review of Systems: - CONSTITUTIONAL: Denies weight loss, fever and chills. - HEENT: Denies changes in vision and hearing - RESPIRATORY: He reports some SOB and cough. - CV: Denies palpitations and CP. - GI: Denies abdominal pain, nausea, vomiting and diarrhea. - : Denies dysuria and urinary frequency. - MSK: Denies myalgia and joint pain. - SKIN: Denies rash and pruritus. - NEUROLOGICAL: Denies headache and syncope. - PSYCHIATRIC: Denies recent changes in mood. Denies anxiety and depression. All systems reviewed & are unremarkable except as noted in HPI and below Constitutional: Constitutional: Reports fatigue and Reports weakness Neurologic: Reports weakness Endocrine: Endocrine: Reports fatigue PMF Past Medical History Medical History (Updated 07/05/21 @ 02:32 by Elvin Dahl MD) Acute on chronic blood loss anemia Acute on chronic renal failure Alpha thalassemia Anemia Anemia CAD (coronary artery disease) Chronic indwelling Hines catheter Chronic renal failure, stage 3 (moderate) Congestive heart failure Diastolic heart failure DVT (deep venous thrombosis) E coli bacteremia (~05/2021) Elevated troponin Fecal impaction Gastroesophageal reflux disease Heart failure Hyperlipidemia Hypertension MRSA (methicillin resistant staph aureus) culture positive Osteoarthritis Paroxysmal atrial fibrillation Paroxysmal atrial fibrillation Pressure ulcer of sacral region, stage 4 (Unknown) Restless leg syndrome Sarcoidosis Surgical History Surgical History History of bilateral cataract extraction History of bowel resection History of hernia repair History of partial hysterectomy History of tubal ligation Family History Family History Mother Stomach cancer Social History Social History (Updated 05/18/21 @ 23:17 by Marie Harris PA-C) Social History: The patient is and 2 children. She is currently at [facility]. She is retired from the [employer] office. Lifelong nonsmoker. No alcohol or illicit substance use. Emergency contact: Aisha Henao, daughter. Smoking status: Former smoker Alcohol intake: former Substance use: never Spiritual care concerns: No Meds Home Medications and Allergies Home Medications Medication Instructions Recorded Confirmed Type allopurinol 150 mg PO DAILY 02/26/21 05/18/21 History aspirin 81 mg PO DAILY 02/26/21 05/18/21 History docusate sodium [Colace] 100 mg PO DAILY 02/26/21 05/18/21 History escitalopram oxalate 10 mg PO HS 02/26/21 05/18/21 History ezetimibe 10 mg PO DAILY 02/26/21 05/18/21 History gabapentin 100 mg PO DAILY 02/26/21 05/18/21 History lidocaine [Lidoderm] 2 patch TRANS
[2021-07-05 02:53] LABS: Add Urine Microscopic? YES; Appearance Urine Cloudy (Clear); Bacteria Urine 1+ /hpf; Bilirubin Urine Negative (Negative); Blood Urine 2+ (Negative); Calcium Oxalate Crystals Urine Present /hpf; Color Urine Yellow (Yellow); Glucose Urine UA Negative (Negative); Ketones Urine Negative (Negative); Leukocyte Esterase Ur 3+ LEU/UL (Negative); Mucus Urine Rare /lpf; Nitrate Urine Positive (Negative); Protein Urine 2+ mg/dL (Negative); RBC Urine 21-50 /hpf (0-2); Specific Grav Ur 1.012 (1.001-1.035); Squamous Epithelial Cell Urine Rare /hpf (Few); Urobilinogen Urine Negative mg/dL (<2.0); WBC Clumps Urine Present /HPF; WBC Urine >75 /hpf
[2021-07-05 07:06] LABS: Magnesium 1.7 mg/dL (1.6-2.3)
[2021-07-05] MEDS: POTASSIUM CHLORIDE 20 MEQ TABLET.ER PO ×2 (08:52→17:49)
[2021-07-05] MEDS: DEXAMETHASONE SOD PHOS INJ 4 MG/ML VIAL 6 MG IV PUSH (08:52)
[2021-07-05] MEDS: SILVERGEL (ELTA) 45 ML 1 APPLIC TOPICAL (12:20)
[2021-07-05] MEDS: HYDROcodone/acetaminophen (*CRX) 5-325 MG TABLET 1 TAB PO ×2 (12:26→21:32)
[2021-07-05] MEDS: METOPROLOL TARTRATE 25 MG TABLET 75 MG PO (23:45)
[2021-07-05] MEDS: amLODIPine BESYLATE 5 MG TABLET PO (23:45)
[2021-07-05] MEDS: ESCITALOPRAM OXALATE 10 MG TABLET PO (23:46)
[2021-07-06] VITALS (13 sets, daily range): BP systolic 140–163; BP diastolic 61–78; PULSE 66–98; RESP 16–22; TEMP 36.3–39; O2SAT 90–95
[2021-07-06 00:04] LABS: Anion Gap 5 mmol/L (8-16); Blood Urea Nitrogen 29 mg/dL (7-17); Calcium 8.1 mg/dL (8.4-10.2); Carbon Dioxide 27 mmol/L (22-30); Chloride 104 mmol/L (98-107); Estimated CRCL calculation 51 ml/min; Estimated Glomerular Filt Rate > 60; Sodium 136 mmol/L (137-145)
[2021-07-06 00:32] LABS: Glucose 121 mg/dL (65-110)
[2021-07-06] MEDS: POTASSIUM CHLORIDE 20 MEQ TABLET 40 MEQ PO (01:41)
--- NOTE | 2021-07-06 07:14 | PM.IMPN ---
Progress Note: A&P Assessment and Plan (1) 2019 novel coronavirus-infected pneumonia (NCIP): Code(s): U07.1 - COVID-19; J12.82 - Pneumonia due to coronavirus disease 2019 Status: Acute Assessment and Plan: COVID-19 pneumonia will start Decadron 6 mg IV daily. Acute hypoxic respiratory failure oxygen supplementation. Remdesivir for 10 days Unless she should recover and tolerate room air with rest, ambulation and while sleeping. - Dexamethasone 6 mg IV for 10 days - Baricitinb for 14 days or until discharge - Continuous pulse oximetry - Prone positioning as tolerated. - Avoid any fluid overload. - Bronchodilators for symptoms currently saturating 90% with oxygen 5 liters. Close clinical monitoring. (2) Acute respiratory failure with hypoxia: Code(s): J96.01 - Acute respiratory failure with hypoxia Status: Acute Assessment and Plan: as above (3) Hypokalemia: Code(s): E87.6 - Hypokalemia Status: Acute Assessment and Plan: supplemented . Repeat K was 3.4. Monitor AM labs. (4) CAD (coronary artery disease): Code(s): I25.10 - Atherosclerotic heart disease of [place] coronary artery without angina pectoris Status: Acute Assessment and Plan: Monitor (5) Heart failure: Code(s): I50.9 - Heart failure, unspecified Status: Acute Assessment and Plan: No evidence of acute exacerbation clinically. Chest Xray without congestive changes. (6) Paroxysmal atrial fibrillation: Code(s): I48.0 - Paroxysmal atrial fibrillation Status: Acute Assessment and Plan: Patient is already on chronic anticoagulation with apixaban. Currently rate controlled. Obtain EKG in AM. (7) Congestive heart failure: Code(s): I50.9 - Heart failure, unspecified Status: Acute (8) Elevated d-dimer: Code(s): R79.89 - Other specified abnormal findings of blood chemistry Status: Acute Assessment and Plan: CT angiogram in AM (9) Chronic anemia: Onset Date: Unknown Code(s): D64.9 - Anemia, unspecified Status: Acute Assessment and Plan: Microcytic and hypochromic. Stable and well tolerated. (10) Chronic indwelling Kline catheter: Code(s): Z97.8 - Presence of other specified devices Status: Acute Assessment and Plan: Exchange kline (11) Pressure ulcer of sacral region, stage 4: Onset Date: Unknown Code(s): L89.154 - Pressure ulcer of sacral region, stage 4 Status: Acute Assessment and Plan: wound care consult. (12) Diastolic heart failure: Code(s): I50.30 - Unspecified diastolic (congestive) heart failure Status: Chronic Assessment and Plan: LAst echo: 02/26/21; 9. Left ventricular systolic function is hyperdynamic with an estimated ejection fraction of 60-65%. Grade I diastolic dysfunction of the left ventricle (impaired relaxation pattern). No signs of exacerbation. COntinue to monitor. (13) Chronic GERD: Code(s): K21.9 - Gastro-esophageal reflux disease without esophagitis Status: Chronic Assessment and Plan: PPI if symptomatic (14) Restless leg syndrome: Code(s): G25.81 - Restless legs syndrome Status: Chronic Assessment and Plan: Check iron panel (15) Atrial fibrillation: Code(s): I48.91 - Unspecified atrial fibrillation Status: Chronic Assessment and Plan: Rate controlled on lopressor 75 mg PO twice daily. (16) Sarcoidosis: Code(s): D86.9 - Sarcoidosis, unspecified Status: Chronic (17) Hypertension: Code(s): I10 - Essential (primary) hypertension Status: Chronic Assessment and Plan: current BP 148/76. continue amlodipine 5 mg PO daily Cntinue metoprolol 75 mg PO every 12 hrs Monitor BP. Additional Plan COVID-19 pneumonia will start Decadron 6 mg IV daily. Acute hypoxic respiratory failure oxygen supplementation Elev
[2021-07-06 07:26] LABS: Hematocrit 29.7 % (37.0-47.0); Hemoglobin 9.1 g/dL (12.0-15.0); Mean Corpuscular HGB Conc 30.6 g/dl (32-36); Mean Corpuscular Hemoglobin 24.1 pg (26-34); Mean Corpuscular Volume 78.6 fl (80-100); Mean Platelet Volume 10.7 fl (7.4-10.4); Platelet Count Result 205 k/mm3 (150-375); Red Blood Count 3.78 M/mm3 (4.2-5.4); Red Cell Distribution Width 17.5 % (11.5-14.5); White Blood Count 5.1 K/mm3 (4.5-10.0)
[2021-07-06 07:41] LABS: Alanine Aminotransferase 13 U/L (4-35); Albumin Level 2.6 g/dL (3.5-5.1); Alkaline Phosphatase 52 U/L (38-126); Anion Gap 6 mmol/L (8-16); Aspartate Amino Transferase 33 U/L (14-36); Bilirubin,Total 0.4 mg/dL (0.2-1.3); Blood Urea Nitrogen 27 mg/dL (7-17); Calcium 8.3 mg/dL (8.4-10.2); Carbon Dioxide 27 mmol/L (22-30); Chloride 105 mmol/L (98-107); Estimated CRCL calculation 51 ml/min; Estimated Glomerular Filt Rate > 60; Glucose 104 mg/dL (65-110); Lactate Dehydrogenase 649 U/L (313-618); Magnesium 1.8 mg/dL (1.6-2.3); Potassium 3.4 mmol/L (3.4-5.0); Sodium 138 mmol/L (137-145)
[2021-07-06 08:14] LABS: D Dimer 3.51 ug/mL (<0.48)
[2021-07-06] MEDS: MULTIVITAMINS /C LUTEIN (CENTRUM SILVER) TABLET *BKC 1 TAB PO (09:38)
[2021-07-06] MEDS: DEXAMETHASONE SOD PHOS INJ 4 MG/ML VIAL 6 MG IV PUSH (09:38)
[2021-07-06] MEDS: POTASSIUM CHLORIDE 20 MEQ TABLET.ER PO ×2 (09:38→16:14)
[2021-07-06] MEDS: METOPROLOL TARTRATE 25 MG TABLET 75 MG PO ×2 (09:38→16:15)
[2021-07-06] MEDS: EZETIMIBE 10 MG TABLET PO (09:38)
[2021-07-06] MEDS: PANTOPRAZOLE 40 MG TABLET PO ×2 (09:38→16:15)
[2021-07-06] MEDS: GABAPENTIN 100 MG CAPSULE PO (09:39)
[2021-07-06] MEDS: amLODIPine BESYLATE 5 MG TABLET PO (09:39)
[2021-07-06] MEDS: SILVERGEL (ELTA) 45 ML 1 APPLIC TOPICAL (09:40)
[2021-07-06] MEDS: LIDOCAINE 5% PATCH 2 PATCH TRANSDERM (09:40)
[2021-07-06] MEDS: ACETAMINOPHEN 500 MG TABLET PO (16:15)
[2021-07-06 16:47] LABS: Alveolar/Arterial O2 Gradient 159.8 mmHg; Base Excess ABG 3.1 mEq/l (+/-2.0); Fractional Inspired Oxygen 36 %; HCO3 ABG 25.7 mEq/l (22.0-26.0); Oxygen Content ABG 13.8 %vol (16.0-22.0); Oxygen Saturation ABG 93.3 % (95.0-100.0); Oxyhemoglobin 90.5 % THb (90.0-100.0); PCO2 ABG 32.4 mmHg (35.0-45.0); PO2 ABG 59.3 mmHg (80.0-100.0); PO2 FiO2 Ratio Arterial Blood 1.65 %; Total Hemoglobin 10.8 g/dL (12.0-18.0)
[2021-07-06 16:48] LABS: Site Drawn RIGHT RADIAL; pH ABG 7.518 (7.350-7.450)
[2021-07-06 16:49] LABS: Device NASAL CANNULA; Modified Allen's Test Pass
[2021-07-06 17:09] LABS: Basophils Percent Auto 0.1 % (0.2-1.2); Hematocrit 32.1 % (37.0-47.0); Immature Granulocyte Absolute 0.09 K/mm3 (0.00-0.031); Immature Granulocyte Percent A 1.3 % (0-0.5); Lymphocytes Absolute Auto 0.44 K/mm3 (0.9-3.2); Lymphocytes Percent Auto 6.2 % (18.3-44.2); Mean Corpuscular HGB Conc 31.2 g/dl (32-36); Mean Corpuscular Hemoglobin 24.2 pg (26-34); Mean Corpuscular Volume 77.7 fl (80-100); Mean Platelet Volume 9.7 fl (7.4-10.4); Monocytes Absolute Auto 0.2 K/mm3 (0.1-0.6); Monocytes Percent Auto 2.4 % (2.6-8.5); Neutrophils Absolute Auto 6.4 K/mm3 (1.3-6.7); Platelet Count Result 242 k/mm3 (150-375); Red Blood Count 4.13 M/mm3 (4.2-5.4); Red Cell Distribution Width 17.7 % (11.5-14.5); White Blood Count 7.1 K/mm3 (4.5-10.0)
[2021-07-06 17:18] LABS: INR 0.9; Prothrombin Time 12.3 Seconds (11.1-14.7)
[2021-07-06 17:24] LABS: Alanine Aminotransferase 16 U/L (4-35); Aspartate Amino Transferase 39 U/L (14-36); Estimated CRCL calculation 46 ml/min; Estimated Glomerular Filt Rate > 60; Lactate Dehydrogenase 801 U/L (313-618)
[2021-07-06] MEDS: BARICITINIB 2 MG TABLET 4 MG PO (20:30)
[2021-07-06] MEDS: APIXABAN 5 MG TABLET PO (20:32)
[2021-07-06] MEDS: ESCITALOPRAM OXALATE 10 MG TABLET PO (20:33)
[2021-07-06] MEDS: ALBUTEROL SULFATE (*SP) INHALER 2 PUFF INHALATION (21:10)
[2021-07-06] MEDS: REMDESIVIR 200 MG/NS 250 ML 200 MG/250 ML BAG 250 MG IVPB (22:50)
[2021-07-07] VITALS (16 sets, daily range): BP systolic 144–152; BP diastolic 68–87; PULSE 58–120; RESP 18–20; TEMP 36.4–37.2; O2SAT 85–97
[2021-07-07] MEDS: ALBUTEROL SULFATE (*SP) INHALER 2 PUFF INHALATION ×4 (04:43→21:01)
[2021-07-07 06:48] LABS: Hematocrit 29.2 % (37.0-47.0); Immature Granulocyte Absolute 0.04 K/mm3 (0.00-0.031); Immature Granulocyte Percent A 1.1 % (0-0.5); Lymphocytes Absolute Auto 0.65 K/mm3 (0.9-3.2); Mean Corpuscular HGB Conc 30.8 g/dl (32-36); Mean Corpuscular Hemoglobin 23.9 pg (26-34); Mean Corpuscular Volume 77.7 fl (80-100); Mean Platelet Volume 9.3 fl (7.4-10.4); Monocytes Absolute Auto 0.2 K/mm3 (0.1-0.6); Monocytes Percent Auto 4.2 % (2.6-8.5); Neutrophils Absolute Auto 2.8 K/mm3 (1.3-6.7); Neutrophils Percent Auto 76.7 % (45.5-73.1); Platelet Count Result 208 k/mm3 (150-375); Red Blood Count 3.76 M/mm3 (4.2-5.4); Red Cell Distribution Width 17.7 % (11.5-14.5); White Blood Count 3.6 K/mm3 (4.5-10.0)
[2021-07-07 07:03] LABS: Alanine Aminotransferase 14 U/L (4-35); Aspartate Amino Transferase 39 U/L (14-36); Estimated CRCL calculation 51 ml/min; Estimated Glomerular Filt Rate > 60; INR 1.1; Prothrombin Time 13.9 Seconds (11.1-14.7)
[2021-07-07 07:07] LABS: NT Pro B Type Natriuretic Pept 7790 pg/mL (5-100)
[2021-07-07 07:10] LABS: Iron < 10 ug/dL (37-170)
[2021-07-07 07:19] LABS: Percent Iron Saturation 6 % (20-50)
[2021-07-07 09:33] LABS: Anion Gap 6 mmol/L (8-16); Blood Urea Nitrogen 35 mg/dL (7-17); Calcium 8.6 mg/dL (8.4-10.2); Carbon Dioxide 26 mmol/L (22-30); Chloride 106 mmol/L (98-107); Estimated CRCL calculation 51 ml/min; Estimated Glomerular Filt Rate > 60; Glucose 98 mg/dL (65-110); Potassium 3.2 mmol/L (3.4-5.0); Sodium 138 mmol/L (137-145)
--- NOTE | 2021-07-07 09:46 | PM.CNCAR ---
Assessment and Plan Additional Plan This is a 76-year-old black female I am seeing regarding concern of her cardiac rhythm. She is apparently hospitalized primarily with COVID pneumonia which unfortunately has apparently occurred despite vaccination last year. She carries the diagnosis of paroxysmal atrial fibrillation has been treated and is still treated with metoprolol and apixaban. She has been placed on telemetry while in the hospital and is generally tachycardic with frequent atrial ectopic activity but appears to be in sinus rhythm. When she is more tachycardic the rhythm appears to be most consistent with multifocal atrial tachycardia. I do not see any evidence of sinus node dysfunction or sinus pauses of any sort at a been recorded. She reports no history of syncope. Since she is admitted with what appears to be COVID pneumonia and is DNR by choice I do not have any additional recommendations other than continuing her beta-maame and I do not think it is necessary to keep this patient on telemetry in this setting. He she will follow up after discharge with her established financial services officer. Brenton Gomez MD [facility] History of Present Illness History of Present Illness Consult date/time: 07/07/21 09:46 Reason For Visit: covid pneumonia, hypoxia, hypokalemia Narrative: This is a 76-year-old lady am requested to see today at the hospitalist presumably because of concern regarding arrhythmias. The stated reason for the consult on the orders is sick sinus syndrome, after a complete review of the chart and her telemetry strips I did not encounter any evidence of sinus pauses or sick sinus syndrome. Patient was hospitalized after being seen in the emergency room. [place] [facility] [place] [facility] because of low oxygen levels and apparently she was tested and found to be positive for coronavirus recently. The patient apparently did receive a coronavirus vaccine last year and as stated above she resides in a prison. She is a debilitated lady with sarcoidosis and is apparently bed-bound because of neuropathy and has a significant sacral decubitus ulcer. Her cardiac history apparently consists of a history of paroxysmal atrial fibrillation for which she has seen another Cardiology group in the past is no longer on staff here at [facility]. There is no mention in the chart of any other cardiac pathology and this has been managed with metoprolol and apixaban. The patient has been placed on telemetry since being placed in the hospital and reviewing the telemetry strips she is in sinus rhythm/sinus tachycardia with frequent APCs. I did not see any rhythm strips that demonstrate Adan arrhythmias or pauses. When she becomes more tachycardic the rhythm is more consistent/suggestive of multifocal atrial tachycardia. I did not see any examples of jim atrial fibrillation. The patient states that in the past she has had the sense of palpitations and irregular tachycardic and pulses in her chest but no other cardiac problems. She is not known to have coronary artery disease to the best of her knowledge she has never had a syncopal episode. She does have unilateral left lower extremity edema which she states her physicians have told her is related to sarcoid. Review of Systems Constitutional: Constitutional: Reports weakness Eyes: Eyes: Reports no additional eye complaints ENT: Reports system reviewed and no additional complaints, except as documented Cardiovascular: Cardiovascular: Reports no additional cardiovascular complaints Respiratory: Respiratory: Reports cough and Reports dyspnea Gastrointestinal: Gastrointestinal: Reports no additional gastrointestinal complaints Musculoskeletal: Comments: Extremity weakness and left-sided edema as mentioned above Neurologic: Comments: Peripheral neuropathy Endocrine: Endocrine: Reports no additional endocrine complaints Hematologic/Lymphatic: Hematologic/Lymphatic: Reports n
[2021-07-07] MEDS: FUROSEMIDE INJ 40 MG/4 ML VIAL 20 MG IV PUSH (09:57)
[2021-07-07] MEDS: LIDOCAINE 5% PATCH 2 PATCH TRANSDERM (09:58)
[2021-07-07] MEDS: APIXABAN 5 MG TABLET PO ×2 (09:59→20:14)
[2021-07-07] MEDS: MULTIVITAMINS /C LUTEIN (CENTRUM SILVER) TABLET *BKC 1 TAB PO (09:59)
[2021-07-07] MEDS: EZETIMIBE 10 MG TABLET PO (09:59)
[2021-07-07] MEDS: POTASSIUM CHLORIDE 20 MEQ TABLET.ER PO ×2 (09:59→16:55)
[2021-07-07] MEDS: GABAPENTIN 100 MG CAPSULE PO (09:59)
[2021-07-07] MEDS: amLODIPine BESYLATE 5 MG TABLET PO (09:59)
[2021-07-07] MEDS: PANTOPRAZOLE 40 MG TABLET PO ×2 (10:00→16:55)
[2021-07-07] MEDS: METOPROLOL TARTRATE 25 MG TABLET 75 MG PO ×2 (10:00→16:56)
[2021-07-07] MEDS: DEXAMETHASONE SOD PHOS INJ 4 MG/ML VIAL 6 MG IV PUSH (10:01)
[2021-07-07] MEDS: SILVERGEL (ELTA) 45 ML 1 APPLIC TOPICAL (10:04)
[2021-07-07] MEDS: HYDROcodone/acetaminophen (*CRX) 7.5-325 MG TABLET 1 TAB PO (10:13)
--- NOTE | 2021-07-07 11:41 | ECG_ITS ---
Measurements Intervals [place] Rate: 91 P: 81 PA: 118 QRS: -21 QRSD: 126 T: -19 QT: 348 QTc: 429 Interpretive Statements SINUS RHYTHM WITH SHORT PA INTERVAL ATRIAL COUPLET AND ATRIAL PREMATURE COMPLEXES RIGHT BUNDLE BRANCH BLOCK BASELINE ARTIFACT- I, II, AVR, AVL, AVF, V4-V6 ABNORMAL ECG Electronically Signed On 07-07-2021 12:10:40 CDT by Segundo Bass D.O.
[2021-07-07] MEDS: POLYSACCHARIDE IRON COMPLEX 150 MG CAPSULE PO ×2 (12:45→16:57)
--- NOTE | 2021-07-07 16:54 | PM.IMPN ---
Progress Note: A&P Assessment and Plan (1) 2019 novel coronavirus-infected pneumonia (NCIP): Code(s): U07.1 - COVID-19; J12.82 - Pneumonia due to coronavirus disease 2019 Status: Acute Assessment and Plan: COVID-19 pneumonia continue Decadron 6 mg IV daily. Acute hypoxic respiratory failure requiring oxygen supplementation. Improved gas exchange overnight with patient curently only on 21 liters by nasal canula Remdesivir for 10 days Unless she should recover and tolerate room air with rest, ambulation and while sleeping. - Dexamethasone 6 mg IV for 10 days - Baricitinb for 14 days or until discharge - Continuous pulse oximetry - Prone positioning as tolerated. - Avoid any fluid overload. - Bronchodilators for symptoms -currently saturating 95% with oxygen 2 liters. Close clinical monitoring. (2) Acute respiratory failure with hypoxia: Code(s): J96.01 - Acute respiratory failure with hypoxia Status: Acute Assessment and Plan: as above (3) Hypokalemia: Code(s): E87.6 - Hypokalemia Status: Acute Assessment and Plan: Supplemented . Monitor AM labs. (4) CAD (coronary artery disease): Code(s): I25.10 - Atherosclerotic heart disease of [place] coronary artery without angina pectoris Status: Acute Assessment and Plan: Continue lopressor (5) Heart failure: Code(s): I50.9 - Heart failure, unspecified Status: Acute Assessment and Plan: No evidence of acute exacerbation clinically. Chest Xray without congestive changes. (6) Paroxysmal atrial fibrillation: Code(s): I48.0 - Paroxysmal atrial fibrillation Status: Acute Assessment and Plan: Currently with normal sinus rythm. Patient is already on chronic anticoagulation with apixaban. Currently rate controlled with lopressor. (7) Congestive heart failure: Code(s): I50.9 - Heart failure, unspecified Status: Acute (8) Elevated d-dimer: Code(s): R79.89 - Other specified abnormal findings of blood chemistry Status: Acute Assessment and Plan: Currently on chronic anticoagulation with apixaban and clinically improving. Continue to monitor. (9) Chronic anemia: Onset Date: Unknown Code(s): D64.9 - Anemia, unspecified Status: Acute Assessment and Plan: Microcytic and hypochromic. Stable and well tolerated. Start oral iron supplementation (10) Chronic indwelling Kline catheter: Code(s): Z97.8 - Presence of other specified devices Status: Acute Assessment and Plan: Exchange kline (11) Pressure ulcer of sacral region, stage 4: Onset Date: Unknown Code(s): L89.154 - Pressure ulcer of sacral region, stage 4 Status: Acute Assessment and Plan: wound care consult. (12) Diastolic heart failure: Code(s): I50.30 - Unspecified diastolic (congestive) heart failure Status: Chronic Assessment and Plan: LAst echo: 02/26/21; 9. Left ventricular systolic function is hyperdynamic with an estimated ejection fraction of 60-65%. Grade I diastolic dysfunction of the left ventricle (impaired relaxation pattern). No signs of exacerbation. COntinue to monitor. (13) Chronic GERD: Code(s): K21.9 - Gastro-esophageal reflux disease without esophagitis Status: Chronic Assessment and Plan: PPI if symptomatic (14) Restless leg syndrome: Code(s): G25.81 - Restless legs syndrome Status: Chronic Assessment and Plan: Severe iron insufficiency. Iron is less than 10. Supplement oral iron. As patient is improving clinically we will start Iv iron supplementation. (15) Atrial fibrillation: Code(s): I48.91 - Unspecified atrial fibrillation Status: Chronic Assessment and Plan: Rate controlled on lopressor 75 mg PO twice daily. (16) Sarcoidosis: Code(s): D86.9 - Sarcoidosis, unspecified Status: Chronic (17) Hyperte
[2021-07-07] MEDS: BARICITINIB 2 MG TABLET 4 MG PO (16:55)
[2021-07-07] MEDS: POTASSIUM CHLORIDE 20 MEQ TABLET.ER 40 MEQ PO (20:14)
[2021-07-07] MEDS: ESCITALOPRAM OXALATE 10 MG TABLET PO (20:14)
[2021-07-07] MEDS: REMDESIVIR 100 MG/NS 250 ML 100 MG/250 ML BAG 250 MG IVPB (21:09)
[2021-07-08] VITALS (12 sets, daily range): BP systolic 127–161; BP diastolic 70–98; PULSE 67–85; RESP 16–18; TEMP 36.3–37.2; O2SAT 90–99
[2021-07-08] MEDS: ALBUTEROL SULFATE (*SP) INHALER 2 PUFF INHALATION ×4 (02:14→20:52)
[2021-07-08 07:19] LABS: Basophils Percent Auto 0.3 % (0.2-1.2); Hematocrit 30.1 % (37.0-47.0); Hemoglobin 9.1 g/dL (12.0-15.0); Immature Granulocyte Absolute 0.06 K/mm3 (0.00-0.031); Immature Granulocyte Percent A 1.5 % (0-0.5); Lymphocytes Absolute Auto 0.64 K/mm3 (0.9-3.2); Lymphocytes Percent Auto 16.3 % (18.3-44.2); Mean Corpuscular HGB Conc 30.2 g/dl (32-36); Mean Corpuscular Hemoglobin 23.5 pg (26-34); Mean Corpuscular Volume 77.8 fl (80-100); Monocytes Absolute Auto 0.2 K/mm3 (0.1-0.6); Monocytes Percent Auto 5.6 % (2.6-8.5); Neutrophils Percent Auto 76.3 % (45.5-73.1); Platelet Count Result 239 k/mm3 (150-375); Red Blood Count 3.87 M/mm3 (4.2-5.4); Red Cell Distribution Width 17.9 % (11.5-14.5); White Blood Count 3.9 K/mm3 (4.5-10.0)
--- NOTE | 2021-07-08 07:23 | PM.IMPN ---
Progress Note: A&P Assessment and Plan (1) 2019 novel coronavirus-infected pneumonia (NCIP): Code(s): U07.1 - COVID-19; J12.82 - Pneumonia due to coronavirus disease 2019 Status: Acute Assessment and Plan: COVID-19 pneumonia continue Decadron 6 mg IV daily. Acute hypoxic respiratory failure requiring oxygen supplementation. Improved gas exchange overnight with patient curently only on 21 liters by nasal canula Remdesivir for 10 days Unless she should recover and tolerate room air with rest, ambulation and while sleeping. - Dexamethasone 6 mg IV for 10 days(resume home prednisone upon discontinuation re: sarcoidosis) - Baricitinb for 14 days or until discharge - Continuous pulse oximetry - Prone positioning as tolerated. - Avoid any fluid overload. - Bronchodilators for symptoms -currently saturating 95% with oxygen 2 liters. Close clinical monitoring. (2) Acute respiratory failure with hypoxia: Code(s): J96.01 - Acute respiratory failure with hypoxia Status: Acute Assessment and Plan: as above (3) Hypokalemia: Code(s): E87.6 - Hypokalemia Status: Acute Assessment and Plan: Resolved (4) CAD (coronary artery disease): Code(s): I25.10 - Atherosclerotic heart disease of [place] coronary artery without angina pectoris Status: Acute Assessment and Plan: Continue lopressor (5) Heart failure: Code(s): I50.9 - Heart failure, unspecified Status: Acute Assessment and Plan: Some crepitations. Chest Xray with some congestive changes. give IV lasix. Monitor daily intake, output, chest Xrays. (6) Paroxysmal atrial fibrillation: Code(s): I48.0 - Paroxysmal atrial fibrillation Status: Acute Assessment and Plan: Currently with normal sinus rythm. Patient is already on chronic anticoagulation with apixaban. Currently rate controlled with lopressor. (7) Congestive heart failure: Code(s): I50.9 - Heart failure, unspecified Status: Acute (8) Elevated d-dimer: Code(s): R79.89 - Other specified abnormal findings of blood chemistry Status: Acute Assessment and Plan: Currently on chronic anticoagulation with apixaban and clinically improving. Continue to monitor. (9) Chronic anemia: Onset Date: Unknown Code(s): D64.9 - Anemia, unspecified Status: Acute Assessment and Plan: Microcytic and hypochromic. Stable and well tolerated. Start oral iron supplementation> When clinically more stable we can consider IV iron loading. (10) Chronic indwelling Kline catheter: Code(s): Z97.8 - Presence of other specified devices Status: Acute Assessment and Plan: Exchange kline (11) Pressure ulcer of sacral region, stage 4: Onset Date: Unknown Code(s): L89.154 - Pressure ulcer of sacral region, stage 4 Status: Acute Assessment and Plan: wound care management. NO evidence of infection. (12) Diastolic heart failure: Code(s): I50.30 - Unspecified diastolic (congestive) heart failure Status: Chronic Assessment and Plan: LAst echo: 02/26/21; 9. Left ventricular systolic function is hyperdynamic with an estimated ejection fraction of 60-65%. Grade I diastolic dysfunction of the left ventricle (impaired relaxation pattern). Currently with moderate CHF exacerbation. Give lasix and continue to monitor clinically. (13) Chronic GERD: Code(s): K21.9 - Gastro-esophageal reflux disease without esophagitis Status: Chronic Assessment and Plan: PPI if symptomatic (14) Restless leg syndrome: Code(s): G25.81 - Restless legs syndrome Status: Chronic Assessment and Plan: Severe iron insufficiency. Iron is less than 10. Supplement oral iron. As patient is improving clinically we will start Iv iron supplementation. (15) Atrial fibrillation: Code(s): I48.91 - Unspecified atrial fibrillation
[2021-07-08 07:29] LABS: INR 1.1; Prothrombin Time 14.4 Seconds (11.1-14.7)
[2021-07-08 09:43] LABS: Alanine Aminotransferase 15 U/L (4-35); Anion Gap 5 mmol/L (8-16); Aspartate Amino Transferase 39 U/L (14-36); Blood Urea Nitrogen 43 mg/dL (7-17); Calcium 8.8 mg/dL (8.4-10.2); Carbon Dioxide 27 mmol/L (22-30); Chloride 107 mmol/L (98-107); Estimated CRCL calculation 46 ml/min; Estimated Glomerular Filt Rate > 60; Glucose 105 mg/dL (65-110); Potassium 3.8 mmol/L (3.4-5.0); Sodium 139 mmol/L (137-145)
[2021-07-08] MEDS: APIXABAN 5 MG TABLET PO ×2 (10:13→21:59)
[2021-07-08] MEDS: METOPROLOL TARTRATE 25 MG TABLET 75 MG PO ×2 (10:13→17:54)
[2021-07-08] MEDS: LIDOCAINE 5% PATCH 2 PATCH TRANSDERM (10:13)
[2021-07-08] MEDS: GABAPENTIN 100 MG CAPSULE PO (10:14)
[2021-07-08] MEDS: PANTOPRAZOLE 40 MG TABLET PO ×2 (10:14→17:55)
[2021-07-08] MEDS: EZETIMIBE 10 MG TABLET PO (10:14)
[2021-07-08] MEDS: MULTIVITAMINS /C LUTEIN (CENTRUM SILVER) TABLET *BKC 1 TAB PO (10:14)
[2021-07-08] MEDS: POTASSIUM CHLORIDE 20 MEQ TABLET.ER 40 MEQ PO (10:14)
[2021-07-08] MEDS: amLODIPine BESYLATE 5 MG TABLET PO (10:14)
[2021-07-08] MEDS: DEXAMETHASONE SOD PHOS INJ 4 MG/ML VIAL 6 MG IV PUSH (10:15)
[2021-07-08] MEDS: POLYSACCHARIDE IRON COMPLEX 150 MG CAPSULE PO ×2 (10:15→17:56)
[2021-07-08] MEDS: SILVERGEL (ELTA) 45 ML 1 APPLIC TOPICAL (11:45)
--- NOTE | 2021-07-08 16:30 | PM.PNCARD ---
Progress Note: A&P Assessment and Plan (1) Paroxysmal atrial fibrillation: Code(s): I48.0 - Paroxysmal atrial fibrillation Status: Acute Assessment and Plan: This is not a new diagnosis - is treated with metoprolol and apixaban. Apparently she was tachycardic earlier in this admission but how appears to be mostly in sinus rhythm with frequent PVC's and PAC's. Apparently there was concern for sick sinus syndrome but I do not see this demonstrated on her telemetry by any bradycardia or significant pauses. Her cardiac rhythm is stable. Additional Plan No active cardiac issues are present at this time. We will sign off for now. She should follow up with her established medical billing specialist when she is discharged from the hospital. Thank you for asking us to see her. Please do not hesitate to contact us if we can be of assistance in the care of this patient. Subjective Date/time seen: 07/08/21 16:30 Cardiology follow up for sick sinus syndrome Date of service 07/08/2021: Patient is feeling better today from a respiratory standpoint. Says she is coughing frequently. No shortness of breath. Denies any feelings of palpitations Review of Systems Constitutional: Constitutional: Reports weakness Eyes: Eyes: Reports no additional eye complaints ENT: Reports system reviewed and no additional complaints, except as documented Cardiovascular: Cardiovascular: Reports no additional cardiovascular complaints and Reports dyspnea Respiratory: Respiratory: Reports cough and Reports dyspnea Gastrointestinal: Gastrointestinal: Reports no additional gastrointestinal complaints Neurologic: Reports weakness Endocrine: Endocrine: Reports no additional endocrine complaints Hematologic/Lymphatic: Hematologic/Lymphatic: Reports no additional hematologic/lymphatic complaints Allergic/Immunologic: Allergic/Immunologic: Reports no additional allergic/immunologic complaints Exam Const: Other: Older female laying comfortably in bed. alert and oriented. Pleasant, cooperative. HENMT: Head: normal to inspection Mouth: Yes moist mucous membranes Eyes: Sclera: sclerae normal Pupils: Equal, round and reactive pupils present Neck: Neck: supple and no JVD Resp: Effort & Inspection: normal respiratory effort Cardio: Rate: regular rate Rhythm: regular rhythm (frequent PAC's, PVC's ) Heart sounds: no murmurs GI: Auscultation: normal bowel sounds Skin: General skin exam: normal color and no rashes or lesions noted Neuro: General: patient oriented x3 Cranial nerves: Yes Equal, round and reactive pupils present Cognition (Neuro): normal cognition Extrem: General: normal to inspection Psych: Appearance: grossly normal Mental Status: mental status grossly normal Objective Data Vital Signs Vital Signs: Vital Signs - 24 hr 07/07/21 16:56 07/07/21 20:00 07/07/21 20:50 Temperature 36.4 C L Pulse Rate 96 75 Respiratory Rate 18 Blood Pressure 144/68 H Pulse Oximetry 95 85 L 07/07/21 21:00 07/07/21 21:01 07/07/21 22:00 Temperature 36.4 C L Pulse Rate 77 Respiratory Rate 18 Blood Pressure 151/81 H Pulse Oximetry 97 96 97 07/07/21 23:45 07/07/21 23:50 07/08/21 00:00 Temperature 36.4 C L Pulse Rate 77 81 Respiratory Rate 18 Blood Pressure 151/81 H Pulse Oximetry 97 97 07/08/21 04:00 07/08/21 04:25 07/08/21 05:37 Temperature 36.3 C L 36.3 C L Pulse Rate 67 73 Respiratory Rate 18 18 Blood Pressure 156/98 H 156/98 H Pulse Oximetry 93 94 93 07/08/21 08:00 07/08/21 08:59 07/08/21 10:13 Temperature 37.2 C Pulse Rate 75 72 Respiratory Rate 18 Blood Pressure 136/78 Pulse Oximetry 91 95 07/08/21 12:00 Temperature 37.1 C Pulse Rate 85 Respiratory Rate 16 Blood Pressure 161/84 H Pulse Oximetry 95 Intake/Output Intake/Output: Intake & Output 07/05/21 07/06/21 07/07/21 07/08/21 23:59 23:59 23:59 23:59 Intake Total 1350 7290 6267 1233
[2021-07-08] MEDS: FUROSEMIDE INJ 40 MG/4 ML VIAL 20 MG IV PUSH (17:54)
[2021-07-08] MEDS: BARICITINIB 2 MG TABLET 4 MG PO (17:55)
[2021-07-08] MEDS: ESCITALOPRAM OXALATE 10 MG TABLET PO (21:59)
[2021-07-08] MEDS: HYDROcodone/acetaminophen (*CRX) 7.5-325 MG TABLET 1 TAB PO (22:07)
[2021-07-08] MEDS: REMDESIVIR 100 MG/NS 250 ML 100 MG/250 ML BAG 250 MG IVPB (22:08)
[2021-07-09] VITALS (14 sets, daily range): BP systolic 132–155; BP diastolic 57–88; PULSE 55–78; RESP 16–21; TEMP 36.2–36.9; O2SAT 90–100
--- NOTE | 2021-07-09 06:32 | PCRCNOTE ---
Window of time for administration has passed. See next scheduled administration.
[2021-07-09 07:38] LABS: Basophils Percent Auto 0.2 % (0.2-1.2); Hematocrit 28.2 % (37.0-47.0); Hemoglobin 8.8 g/dL (12.0-15.0); Immature Granulocyte Absolute 0.09 K/mm3 (0.00-0.031); Immature Granulocyte Percent A 2.1 % (0-0.5); Lymphocytes Absolute Auto 0.77 K/mm3 (0.9-3.2); Lymphocytes Percent Auto 17.7 % (18.3-44.2); Mean Corpuscular HGB Conc 31.2 g/dl (32-36); Mean Corpuscular Hemoglobin 23.9 pg (26-34); Mean Corpuscular Volume 76.6 fl (80-100); Mean Platelet Volume 9.9 fl (7.4-10.4); Monocytes Absolute Auto 0.3 K/mm3 (0.1-0.6); Neutrophils Absolute Auto 3.2 K/mm3 (1.3-6.7); Platelet Count Result 263 k/mm3 (150-375); Red Blood Count 3.68 M/mm3 (4.2-5.4); White Blood Count 4.4 K/mm3 (4.5-10.0)
[2021-07-09 07:45] LABS: INR 1.3
[2021-07-09 07:56] LABS: Alanine Aminotransferase 15 U/L (4-35); Anion Gap 4 mmol/L (8-16); Aspartate Amino Transferase 35 U/L (14-36); Blood Urea Nitrogen 45 mg/dL (7-17); Calcium 8.5 mg/dL (8.4-10.2); Carbon Dioxide 27 mmol/L (22-30); Chloride 107 mmol/L (98-107); Estimated CRCL calculation 46 ml/min; Estimated Glomerular Filt Rate > 60; Glucose 93 mg/dL (65-110); Potassium 3.5 mmol/L (3.4-5.0); Sodium 138 mmol/L (137-145)
--- NOTE | 2021-07-09 08:22 | PM.IMPN ---
Progress Note: A&P Additional Plan START OF DOCTOR ELROY?S PROGRESS NOTE Subjective: The patient currently rates her respiratory status is not often times her baseline. She states that compared to admission, her respiratory status has greatly improved. Overnight she denies fever, rigors, nausea, vomiting. She admits to cough which is productive of brown sputum. She denies wheezing, abdominal pain, chest pain. I have explained to the patient her current medical condition and plan of care and I have answered all her questions Objective: General: -Alert -No acute distress -No dyspnea -No tachypnea -obese Heart: -Regular rate -Regular rhythm -No murmurs -No gallops -No rubs Lungs: -No wheeze -No rhonchi -diffuse low-grade rales Abdomen: -Normal bowel sounds in all four quadrants -No rebound -No guarding -No tenderness Extremities: -2/4 pulse in all four extremities -No clubbing -No cyanosis -gross left lower extremity edema present-chronic. Trace right lower extremity edema present Additional Details / Additional Findings / Exceptions / Miscellaneous: Pertinent Laboratory Results / Pertinent Radiology Results / Pertinent Diagnostic Results / Pertinent Vital Signs: Blood pressure 155/60, pulse 60 Assessment / Plan: COVID-19 pneumonia. Proventil HFA: 90 microspheres rate: 2 puffs q.6 hours post bare sitting up 4 mg p.o. daily plus dexamethasone 6 mg IV daily plus rubbed up serial 100 mg IV daily until 11:59 p.m. on July 10, 2021 Hypertension. Norvasc 5 mg p.o. daily plus Lasix 20 mg IV q.8 hours Sarcoidosis Neuropathy. Gabapentin 100 mg p.o. daily L foot palpable thalassemia Coronary artery disease CHF. Lasix 20 mg IV q.8 hours History of DVT. Eliquis 5 mg p.o. q.12 hours GERD. Protonix 40 mg p.o. b.i.d. Hyperlipidemia. Zetia 10 mg p.o. daily Osteoarthritis Pain. Lidocaine 5% patch: Apply 2 patches to affected area daily for 12 hours Urinary tract infection. Urine culture positive for ESBL Klebsiella pneumonia and enteral coccus species. Meropenem 1 g IV q.8 hours Restless leg syndrome Obesity. Patient counseled regarding lifestyle modification Proximal atrial fibrillation. Norvasc 5 mg p.o. daily plus Eliquis 5 mg p.o. b.i.d. Sacral ulcer. I will follow-up on the wound care nurses findings recommendations Iron deficiency anemia. Iron sucrose 100 mg IV daily I told him 50 9:00 p.m. on July 13, 2020 1+ vitamin-C 500 mg p.o. daily Leukocytopenia. Will monitor white blood cell count intermittently Hypokalemia. Will will monitor potassium levels intermittently Topamax as necessary Constipation. Colace 100 mg p.o. daily Depression. Lexapro 10 mg p.o. q.h.s. Overactive bladder. Did freshen XL 5 mg p.o. daily DVT prophylaxis. Eliquis 5 mg p.o. q.12 hours Disposition: Anticipate discharge in 24-72 hours END OF DOCTOR ELROY?S PROGRESS NOTE Subjective Date/time seen: 07/09/21 08:22 Objective Data Vital Signs Vital Signs: Vital Signs - 24 hr 07/08/21 08:59 07/08/21 10:13 07/08/21 12:00 Temperature 98.8 F Pulse Rate 72 85 Respiratory Rate 16 Blood Pressure 161/84 H Pulse Oximetry 95 95 07/08/21 16:00 07/08/21 17:54 07/08/21 20:00 Temperature 98.9 F 97.5 F L Pulse Rate 71 80 67 Respiratory Rate 18 18 Blood Pressure 153/84 H 127/70 Pulse Oximetry 90 90 07/08/21 20:56 07/09/21 00:00 07/09/21 04:00 Temperature 97.4 F L 97.6 F Pulse Rate 77 60 Respiratory Rate 20 18 Blood Pressure 132/57 L 155/68 H Pulse Oximetry 99 93 94 Intake/Output Intake/Output: Intake & Output 07/06/21 07/07/21 07/08/21 07/09/21 23:59 23:59 23:59 23:59 Intake Total 2470 2770 1990 750 Output Total 900 1400 1450 700 Balance 1570 1370 540 50 Meds/Results Medications: Active Medications Generic Name Dose Route Start Last Admin Trade Name Freq PRN Reason Stop Dose Admin Acetamin
[2021-07-09] MEDS: METOPROLOL TARTRATE 25 MG TABLET 75 MG PO ×2 (08:30→17:18)
[2021-07-09] MEDS: EZETIMIBE 10 MG TABLET PO (08:30)
[2021-07-09] MEDS: APIXABAN 5 MG TABLET PO ×2 (08:30→21:46)
[2021-07-09] MEDS: GABAPENTIN 100 MG CAPSULE PO (08:30)
[2021-07-09] MEDS: amLODIPine BESYLATE 5 MG TABLET PO (08:31)
[2021-07-09] MEDS: PANTOPRAZOLE 40 MG TABLET PO ×2 (08:31→17:18)
[2021-07-09] MEDS: MULTIVITAMINS /C LUTEIN (CENTRUM SILVER) TABLET *BKC 1 TAB PO (08:31)
[2021-07-09] MEDS: LIDOCAINE 5% PATCH 2 PATCH TRANSDERM (08:32)
[2021-07-09] MEDS: DEXAMETHASONE SOD PHOS INJ 4 MG/ML VIAL 6 MG IV PUSH (08:32)
[2021-07-09] MEDS: DOCUSATE SODIUM 100 MG CAPSULE PO (08:35)
[2021-07-09] MEDS: ALBUTEROL SULFATE (*SP) INHALER 2 PUFF INHALATION ×3 (09:01→20:58)
[2021-07-09] MEDS: IRON SUCROSE COMPLEX 100 MG in SODIUM CHLORIDE 0.9% IV 50 ML 220 MG IVPB (09:56)
[2021-07-09] MEDS: FUROSEMIDE INJ 40 MG/4 ML VIAL 20 MG IV PUSH ×3 (09:57→21:46)
[2021-07-09] MEDS: ASCORBIC ACID 500 MG TABLET PO (09:58)
[2021-07-09] MEDS: SILVERGEL (ELTA) 45 ML 1 APPLIC TOPICAL ×2 (10:35→20:42)
--- NOTE | 2021-07-09 13:16 | PCNFU ---
Nutrition Follow-Up Complete: Increased Protein needs as related to wounds as evidenced by stage 4 pressure ulcer. Goal: Meet estimated nutritional needs. Patient is progressing towards goal. We will continue current goal. Pt current nutrition is Heart Healthy with Bladimir BID. Last recorded weight is 83.6 kg, no new weight to report. Bowel Motility:+BM reported 07/06 Labs Reviewed:BUN 45, Hct 28.2,Hgb 8.8 Meds Noted:Remdesivir,Colace, Zetia,Lopressor, MVI, Protonix,Decadron,Vit C Additional Notes: Spoke with patient today via telephone due to COVID 19 precautions. Patient states to tolerating oral diet. Eating 50-100% of meals. Protein Modular of Bladimir continues providing an additional 90 kcals and 2.5 gms protein. Skin: Stage IV saccum. Agree with diet orders. MOnitoring: Will monitor every 5 days.
[2021-07-09] MEDS: BARICITINIB 2 MG TABLET 4 MG PO (17:18)
[2021-07-09] MEDS: ESCITALOPRAM OXALATE 10 MG TABLET PO (20:41)
[2021-07-09] MEDS: HYDROcodone/acetaminophen (*CRX) 7.5-325 MG TABLET 1 TAB PO (20:41)
[2021-07-09] MEDS: REMDESIVIR 100 MG/NS 250 ML 100 MG/250 ML BAG 250 MG IVPB (21:46)
[2021-07-10] VITALS (13 sets, daily range): BP systolic 138–170; BP diastolic 68–89; PULSE 60–93; RESP 14–20; TEMP 36.5–37.2; O2SAT 92–98
[2021-07-10] MEDS: ALBUTEROL SULFATE (*SP) INHALER 2 PUFF INHALATION ×2 (01:50→10:08)
[2021-07-10] MEDS: FUROSEMIDE INJ 40 MG/4 ML VIAL 20 MG IV PUSH ×2 (05:06→15:27)
[2021-07-10 06:44] LABS: Basophils Percent Auto 0.4 % (0.2-1.2); Hemoglobin 9.8 g/dL (12.0-15.0); Immature Granulocyte Absolute 0.15 K/mm3 (0.00-0.031); Immature Granulocyte Percent A 2.9 % (0-0.5); Lymphocytes Absolute Auto 0.87 K/mm3 (0.9-3.2); Lymphocytes Percent Auto 16.7 % (18.3-44.2); Mean Corpuscular HGB Conc 30.6 g/dl (32-36); Mean Corpuscular Volume 78.4 fl (80-100); Mean Platelet Volume 9.2 fl (7.4-10.4); Monocytes Absolute Auto 0.3 K/mm3 (0.1-0.6); Monocytes Percent Auto 5.4 % (2.6-8.5); Neutrophils Absolute Auto 3.9 K/mm3 (1.3-6.7); Neutrophils Percent Auto 74.6 % (45.5-73.1); Nucleated Red Blood Cells Perc 0.4 % (0.0-0.2); Platelet Count Result 278 k/mm3 (150-375); Red Blood Count 4.08 M/mm3 (4.2-5.4); Red Cell Distribution Width 18.1 % (11.5-14.5); White Blood Count 5.2 K/mm3 (4.5-10.0)
[2021-07-10 06:55] LABS: Alanine Aminotransferase 16 U/L (4-35); Anion Gap 8 mmol/L (8-16); Aspartate Amino Transferase 39 U/L (14-36); Blood Urea Nitrogen 49 mg/dL (7-17); Calcium 8.6 mg/dL (8.4-10.2); Carbon Dioxide 26 mmol/L (22-30); Chloride 106 mmol/L (98-107); Estimated CRCL calculation 46 ml/min; Estimated Glomerular Filt Rate > 60; Glucose 92 mg/dL (65-110); Potassium 2.9 mmol/L (3.4-5.0); Sodium 140 mmol/L (137-145)
[2021-07-10 07:01] LABS: INR 1.3
--- NOTE | 2021-07-10 07:38 | PM.IMPN ---
Progress Note: A&P Additional Plan START OF DOCTOR ELROY?S PROGRESS NOTE Subjective: The patient complains of cough which is productive of brown sputum. Aside from this she endorses no complaints. She indicates her respiratory status has improved compared to my encounter with her on July 09, 2021. She currently rates her respiratory status is an 8/10 at times her baseline. Overnight she has fever, rigors, nausea, vomiting, wheeze, abdominal pain, chest pain, or any other concerns or complaints. I have explained to the patient her current medical condition plan of care and answered all her questions Objective: General: -Alert -No acute distress -No dyspnea -No tachypnea -obese Heart: -Regular rate -Regular rhythm -No murmurs -No gallops -No rubs Lungs: -No wheeze -No rhonchi -diffuse low-grade rales Abdomen: -Normal bowel sounds in all four quadrants -No rebound -No guarding -No tenderness Extremities: -2/4 pulse in all four extremities -No clubbing -No cyanosis -gross left lower extremity edema present-chronic. Trace right lower extremity edema present Additional Details / Additional Findings / Exceptions / Miscellaneous: Pertinent Laboratory Results / Pertinent Radiology Results / Pertinent Diagnostic Results / Pertinent Vital Signs: Blood pressure 170/88, pulse 94, hemoglobin 9.8, potassium 2.9, patient saturating 93% on 4 L Assessment / Plan: COVID-19 pneumonia. Proventil HFA: 90 microspheres rate: 2 puffs q.6 hours post bare sitting up 4 mg p.o. daily plus dexamethasone 6 mg IV daily plus rubbed up serial 100 mg IV daily until 11:59 p.m. on July 10, 2021 Hypertension. Norvasc 10 mg p.o. daily plus Lasix 20 mg IV q.8 hours plus hydralazine 50 mg p.o. t.i.d. Sarcoidosis Neuropathy. Gabapentin 100 mg p.o. daily L foot palpable thalassemia Coronary artery disease CHF. Lasix 20 mg IV q.8 hours History of DVT. Eliquis 5 mg p.o. q.12 hours GERD. Protonix 40 mg p.o. b.i.d. Hyperlipidemia. Zetia 10 mg p.o. daily Osteoarthritis Pain. Lidocaine 5% patch: Apply 2 patches to affected area daily for 12 hours Urinary tract infection. Urine culture positive for ESBL Klebsiella pneumonia and enteral coccus species. Meropenem 1 g IV q.8 hours Restless leg syndrome Obesity. Patient counseled regarding lifestyle modification Proximal atrial fibrillation. Norvasc 5 mg p.o. daily plus Eliquis 5 mg p.o. b.i.d. Sacral ulcer. I will follow-up on the wound care nurses findings recommendations Iron deficiency anemia. Iron sucrose 100 mg IV daily I told him 50 9:00 p.m. on July 13, 2020 1+ vitamin-C 500 mg p.o. daily Leukocytopenia. Will monitor white blood cell count intermittently Hypokalemia. Will will monitor potassium levels intermittently Topamax as necessary Constipation. Colace 100 mg p.o. daily Depression. Lexapro 10 mg p.o. q.h.s. Overactive bladder. Did freshen XL 5 mg p.o. daily DVT prophylaxis. Eliquis 5 mg p.o. q.12 hours Disposition: The patient has wheelchair bound/nonambulatory and thus she may potentially be a cat for discharge on this day of July 10, 2021 with supplemental oxygen will be weaned in the coming days/weeks. I will discuss the patient's case with case management/social work END OF DOCTOR ELROY?S PROGRESS NOTE Subjective Date/time seen: 07/10/21 07:38 Objective Data Vital Signs Vital Signs: Vital Signs - 24 hr 07/09/21 08:00 07/09/21 08:30 07/09/21 09:02 Temperature 97.2 F L Pulse Rate 62 73 67 Respiratory Rate 16 16 Blood Pressure 148/78 H Pulse Oximetry 94 07/09/21 09:03 07/09/21 12:00 07/09/21 13:12 Temperature 97.5 F L Pulse Rate 69 66 Respiratory Rate 21 H 18 Blood Pressure 143/68 H Pulse Oximetry 96 90 07/09/21 16:00 07/09/21 17:18 07/09/21 18:30 Temperature 97.3 F L Pulse Rate 69 76 Respiratory Rate 20 Blood Pressure 144/69 H Pulse Oximetry 90
[2021-07-10] MEDS: PANTOPRAZOLE 40 MG TABLET PO ×2 (10:04→17:21)
[2021-07-10] MEDS: MULTIVITAMINS /C LUTEIN (CENTRUM SILVER) TABLET *BKC 1 TAB PO (10:04)
[2021-07-10] MEDS: amLODIPine BESYLATE 5 MG TABLET 10 MG PO (10:04)
[2021-07-10] MEDS: hydrALAZINE HCL 50 MG TABLET PO ×3 (10:04→17:21)
[2021-07-10] MEDS: METOPROLOL TARTRATE 25 MG TABLET 75 MG PO ×2 (10:04→17:21)
[2021-07-10] MEDS: POTASSIUM CHLORIDE 20 MEQ TABLET 40 MEQ PO ×2 (10:05→15:27)
[2021-07-10] MEDS: APIXABAN 5 MG TABLET PO ×2 (10:05→20:38)
[2021-07-10] MEDS: GABAPENTIN 100 MG CAPSULE PO (10:05)
[2021-07-10] MEDS: ASCORBIC ACID 500 MG TABLET PO (10:06)
[2021-07-10] MEDS: DEXAMETHASONE SOD PHOS INJ 4 MG/ML VIAL 6 MG IV PUSH (10:06)
[2021-07-10] MEDS: EZETIMIBE 10 MG TABLET PO (10:07)
[2021-07-10] MEDS: LIDOCAINE 5% PATCH 2 PATCH TRANSDERM (10:08)
--- NOTE | 2021-07-10 12:04 | PM.DS ---
DS: Admitting Diagnosis Discharge Date 12:06 p.m. on July 10, 2020 Admitting Diagnosis COVID-19 pneumonia DS: Summary Hospital Course Hospital Course: See discharge summary below Time Spent with Patient Time attestation: Total time spent providing and/or coordinating discharge services: START OF DOCTOR CECILIA?S DISCHARGE SUMMARY Date of Admission: July 05, 2021 Date of Discharge: 12:04 p.m. on July 10, 2021 Primary Diagnosis: COVID-19 pneumonia Secondary Diagnosis: Hypertension Sarcoidosis Neuropathy Alpha thalassemia Coronary artery disease CHF History of DVT GERD Hyperlipidemia Osteoarthritis Pain Urinary tract infection, urine culture positive for ESBL Klebsiella pneumoniae and Enterococcus species Restless leg syndrome Obesity Proximal atrial fibrillation Sacral ulcer Iron deficiency anemia Leukocytopenia Hypokalemia Constipation Depression Overactive bladder Consultations: Cardiology Disposition: The patient will be advised to follow up with her primary care physician 3-5 days post discharge for post hospitalization evaluation The where the patient is advised to follow up with the [facility] as directed for her sacral ulcer Discharge Medications: Ferrous sulfate 325 mg p.o. b.i.d. Vitamin-C 500 mg p.o. b.i.d. Full tear and 1% gel: 2 g apply to affected area q.8 hours p.r.n. pain Lasix 20 mg p.o. b.i.d. Milk of magnesia 30 mL p.o. daily MiraLax 17 g p.o. daily Prednisone 20 mg p.o. daily Norvasc 10 mg p.o. daily Dexamethasone 6 mg p.o. daily. Quantity 4. 0 refills Proventil HFA: 90 mg per spray: 2 puffs q.6 hours p.r.n. shortness of breath/wheeze Colace 100 mg p.o. daily Lexapro 10 mg p.o. q.h.s. Zetia 10 mg p.o. daily Gabapentin 100 mg p.o. daily Metoprolol 75 mg p.o. b.i.d. Multivitamin 1 tab p.o. daily Ditropan XL 5 mg p.o. daily Protonix 40 mg p.o. b.i.d. Silvadene 1% gel to be applied to sacral ulcer/affected area daily with wound dressing changes Hydralazine 50 mg p.o. t.i.d. Eliquis 5 mg p.o. b.i.d. END OF DOCTOR CECILIA?S DISCHARGE SUMMARY DS: Data Data Completed and Pending Labs on day of discharge: Labs from last 24 hours 07/10/21 07/10/21 07/10/21 06:32 06:32 06:32 WBC 5.2 RBC 4.08 L Hgb 9.8 L Hct 32.0 L MCV 78.4 L MCH 24.0 L MCHC 30.6 L RDW 18.1 H Plt Count 278 MPV 9.2 Immature Gran % (Auto) 2.9 H Neut % (Auto) 74.6 H Lymph % (Auto) 16.7 L [place] % (Auto) 5.4 Eos % (Auto) 0.0 Baso % (Auto) 0.4 Lymph # (Auto) 0.87 L [place] # (Auto) 0.3 Eos # (Auto) 0.0 Baso # (Auto) 0.0 Abs Immat Gran (auto) 0.15 H Absolute Neuts (auto) 3.9 Absolute Nucleated RBC 0.0 Nucleated RBC % 0.4 H PT 16.0 H INR 1.3 Sodium 140 Potassium 2.9 L Chloride 106 Carbon Dioxide 26 Anion Gap 8 BUN 49 H Creatinine 1.00 Estim Creat Clear Calc 46 Estimated GFR > 60 Glucose 92 Calcium 8.6 AST 39 H ALT 16 Preliminary micro results at discharge 07/06/21 16:58 Blood Culture - Preliminary Blood Corynebacterium striatum 07/06/21 16:58 Blood Culture - Preliminary Blood Corynebacterium striatum 07/07/21 10:10 Sputum Culture - Preliminary Sputum 07/08/21 12:49 Wound Culture - Preliminary Buttock Discharge Plan Discharge Consulting providers: Adelaide Scherer Discharging Clinician: Cecilia Patient Disposition: SNF Activity: as tolerated Diet: as tolerated Wound Care Instructions: follow printed instructions Discharge Instructions: Wound Care Instructions: Cleanse sacral wound with soap and water daily. Daily apply Silver gel to the wound bed, lighlty fill space of wounds with gauze roll and then cover with an ABD pad. Change outer dressing as needed for stool contamination.
[2021-07-10] MEDS: IRON SUCROSE COMPLEX 100 MG in SODIUM CHLORIDE 0.9% IV 50 ML 220 MG IVPB (13:10)
[2021-07-10] MEDS: BARICITINIB 2 MG TABLET 4 MG PO (17:21)
[2021-07-10] MEDS: HYDROcodone/acetaminophen (*CRX) 7.5-325 MG TABLET 1 TAB PO (20:36)
[2021-07-10] MEDS: ESCITALOPRAM OXALATE 10 MG TABLET PO (20:38)
[2021-07-10 22:01] LABS: Legionella pneumophila Ag Ur Not Detected (Not Detected)
== END 2021-07-10 20:50 | DRG 137 ==
LOC: ANHED 22:04 → ANH3MEDSUR 22:42
PROVIDERS: Internal Medicine; Admitting Provider Internal Medicine; Emergency Provider Emergency Medicine; PCP Family Medicine; Visit Provider Internal Medicine
DX: U07.1 COVID-19 (principal); J12.82 Pneumonia due to coronavirus disease 2019; J96.01 Acute respiratory failure with hypoxia; N39.0 Urinary tract infection, site not specified; B95.2 Enterococcus as the cause of diseases classified elsewhere; B96.1 Klebsiella pneumoniae [K. pneumoniae] as the cause of diseases classified elsewhere; I13.0 Hypertensive heart and chronic kidney disease with heart failure and stage 1 through stage 4 chronic kidney disease, or unspecified chronic kidney disease; N18.30 Chronic kidney disease, stage 3 unspecified; I50.32 Chronic diastolic (congestive) heart failure; I25.10 Atherosclerotic heart disease of native coronary artery without angina pectoris; M19.90 Unspecified osteoarthritis, unspecified site; K21.9 Gastro-esophageal reflux disease without esophagitis; E78.5 Hyperlipidemia, unspecified; G25.81 Restless legs syndrome; I48.0 Paroxysmal atrial fibrillation; D86.9 Sarcoidosis, unspecified; D50.9 Iron deficiency anemia, unspecified; G62.9 Polyneuropathy, unspecified; E87.6 Hypokalemia; L89.154 Pressure ulcer of sacral region, stage 4; K59.00 Constipation, unspecified; N32.81 Overactive bladder; Z66 Do not resuscitate; Z86.718 Personal history of other venous thrombosis and embolism; Z79.01 Long term (current) use of anticoagulants; Z98.42 Cataract extraction status, left eye; Z98.41 Cataract extraction status, right eye; Z90.711 Acquired absence of uterus with remaining cervical stump
CPT/HCPCS: 36415; 36600; 71045; 80048; 80053; 81001; 82565; 82728; 82805; 83540; 83550; 83615; 83735; 83880; 84450; 84460; 85025; 85027; 85380; 85610; 86140; 87040; 87070; 87077; 87086; 87088; 87186; 87205; 87449; 93005; 94640; 96365; 96366; 96375; 96376; 97161; 97165; 99285; A9270; G0378; G0379; J0456; J0696; J1100; J1756; J1940; J2185; J3480; J7030; J7060

== ENCOUNTER 2021-07-16 23:49 | Inpatient (IN) | payer MEDICARE, MEDICAID, SELFPAY ==
--- NOTE | ~2021-07-16 | US_ITS ---
US venous doppler [facility] DATE: 07/18/2021 12:37 INDICATION: Deep venous thrombosis TECHNIQUE: Real-time and color flow imaging and Doppler analysis of the veins of both lower extremiti es COMPARISON: None FINDINGS: The greater saphenous veins are patent bilaterally. There is spontaneous and phasic flow an d normal augmentation and color flow signal and normal compression of the deep veins of both lower ex tremities. IMPRESSION: No evidence of deep venous thrombosis of the lower extremities Reviewed, dictated and finalized at [facility]. Reviewed, dictated and finalized at location [facility].
--- NOTE | ~2021-07-16 | XR_ITS ---
XR chest 1V portable DATE: 07/20/2021 10:21 INDICATION: Covid pneumonia TECHNIQUE: Portable AP chest on 07/20/2021 at 1007 hours COMPARISON: 07/17/2021 AP chest FINDINGS: There are extensive severe bilateral pulmonary patchy consolidating infiltrates, most sever e in the right mid to upper and left mid to lower lung armenta. Infiltrates are increased since 021. Aortic arch calcification. Heart size is borderline. No significant pleural fluid accumulation is nayeli dent. No pneumothorax. IMPRESSION: Extensive severe patchy bilateral pulmonary infiltrates, increased since 07/17/2021 Reviewed, dictated and finalized at [facility].
--- NOTE | ~2021-07-16 | CT_ITS ---
EXAMINATION: CTA chest PE protocol DATE: 07/17/2021 02:14 INDICATION: Shortness of breath. Recent Covid infection. TECHNIQUE: Computed tomography angiography (CTA) of the chest was performed with 100 mL Omnipaque-350 intravenous contrast timed to evaluate the pulmonary arteries. Coronal maximum intensity projection 3D-reconstructions were created by the technologist. Automated exposure control and iterative reconst ruction technique were employed. Exam dose: 406.58 mGy-cm total exam DLP. COMPARISON: 07/09/2021 portable AP chest FINDINGS: There is diagnostic contrast enhancement of the pulmonary arteries. No pulmonary embolism i s identified. There is cardiomegaly. Coronary artery calcification. No pericardial effusion. No thoracic aortic aneurysm is detected. Diffuse idiopathic skeletal hyperostosis of the thoracolumbar spine. No suspicious osteolytic or oste oblastic lesions are noted. There are extensive multifocal groundglass infiltrates scattered throughout both lungs, with extensiv e air bronchograms. Moderate right and small left pleural effusion. IMPRESSION: No evidence of pulmonary embolism Extensive multifocal groundglass infiltrates with air bronchograms, likely due to Covid pneumonia. Castillo perimposed pulmonary edema is a consideration, given cardiomegaly, moderate right and small left pleu ral effusion, suggesting superimposed congestive heart failure Reviewed, dictated and finalized at [facility]. Reviewed, dictated and finalized at [facility]. IMPRESSION: No evidence of pulmonary embolism Extensive multifocal groundglass infiltrates with air bronchograms, likely due to Covid pneumonia. Superimposed pulmonary edema is a consideration, given card iomegaly, moderate right and small left pleural effusion, suggesting superimpos ed congestive heart failure
--- NOTE | ~2021-07-16 | XR_ITS ---
XR chest 1V portable DATE: 07/17/2021 02:12 INDICATION: Shortness of breath TECHNIQUE: Portable AP chest on 07/27/2021 at 0206 hours COMPARISON: 07/27/2021 CTA chest 07/09/2021 portable AP chest FINDINGS: Extensive bilateral patchy consolidating infiltrates are noted, most prominent in the right mid to upper lung zones, left lower lung and right lung base. The bilateral infiltrates are substant ially increased since 07/09/2021. Cardiomegaly. No pneumothorax. No central lines or tubes. Left axillary surgical clips. Diffuse idiopathic skeletal hyperostosis of the thoracolumbar spine. IMPRESSION: Extensive bilateral pulmonary infiltrates, increased since 07/09/2021 Cardiomegaly Reviewed, dictated and finalized at location [facility]. IMPRESSION: Extensive bilateral pulmonary infiltrates, increased since Cardiomegaly
[2021-07-16 23:52] VITALS: BP 153/107; PULSE 76; RESP 22; TEMP 36.7; O2SAT 91
--- NOTE | 2021-07-16 23:56 | ECG_ITS ---
Measurements Intervals [place] Rate: 93 P: MO: 0 QRS: -6 QRSD: 146 T: -21 QT: 403 QTc: 503 Interpretive Statements WANDERING PACEMAKER ATRIAL AND VENTRICULAR PREMATURE COMPLEXES RIGHT BUNDLE BRANCH BLOCK ABNORMAL ECG Electronically Signed On 07-18-2021 7:31:23 CDT by Segundo Bass D.O.
[2021-07-17] VITALS (23 sets, daily range): BP systolic 124–167; BP diastolic 73–99; PULSE 59–95; RESP 16–26; TEMP 34.2–36.3; O2SAT 92–98; BMI 28.6
[2021-07-17 00:27] LABS: Alveolar/Arterial O2 Gradient 336.6 mmHg; Fractional Inspired Oxygen 60 %; HCO3 ABG 22.3 mEq/l (22.0-26.0); Oxygen Content ABG 13.6 %vol (16.0-22.0); Oxygen Saturation ABG 90.8 % (95.0-100.0); Oxyhemoglobin 88.1 % THb (90.0-100.0); PCO2 ABG 32.3 mmHg (35.0-45.0); PO2 ABG 55.7 mmHg (80.0-100.0); PO2 FiO2 Ratio Arterial Blood 0.93 %; pH ABG 7.456 (7.350-7.450)
[2021-07-17 00:28] LABS: Modified Allen's Test Pass; Site Drawn LEFT RADIAL
[2021-07-17 00:29] LABS: Device HIGH FLOW NASAL CANN
[2021-07-17 00:46] LABS: Basophils Percent Auto 0.2 % (0.2-1.2); Hematocrit 32.5 % (37.0-47.0); Immature Granulocyte Absolute 0.12 K/mm3 (0.00-0.031); Lymphocytes Absolute Auto 0.42 K/mm3 (0.9-3.2); Lymphocytes Percent Auto 3.5 % (18.3-44.2); Mean Corpuscular HGB Conc 30.8 g/dl (32-36); Mean Corpuscular Hemoglobin 24.2 pg (26-34); Mean Corpuscular Volume 78.5 fl (80-100); Mean Platelet Volume 10.4 fl (7.4-10.4); Monocytes Absolute Auto 0.3 K/mm3 (0.1-0.6); Monocytes Percent Auto 2.1 % (2.6-8.5); Neutrophils Absolute Auto 11.2 K/mm3 (1.3-6.7); Neutrophils Percent Auto 93.2 % (45.5-73.1); Nucleated Red Blood Cells Perc 0.3 % (0.0-0.2); Platelet Count Result 412 k/mm3 (150-375); Red Blood Count 4.14 M/mm3 (4.2-5.4); Red Cell Distribution Width 19.1 % (11.5-14.5)
[2021-07-17] MEDS: DEXAMETHASONE SOD PHOS INJ 4 MG/ML VIAL 6 MG IV PUSH ×2 (00:50→09:35)
[2021-07-17 00:52] LABS: Add Urine Microscopic? YES; Appearance Urine Clear (Clear); Bacteria Urine 1+ /hpf; Bilirubin Urine Negative (Negative); Color Urine Yellow (Yellow); Glucose Urine UA Negative (Negative); Ketones Urine Negative (Negative); Leukocyte Esterase Ur Trace LEU/UL (Negative); Mucus Urine Rare /lpf; Nitrate Urine Negative (Negative); Protein Urine 1+ mg/dL (Negative); Specific Grav Ur 1.014 (1.001-1.035); Squamous Epithelial Cell Urine Occasional /hpf (Few); Transitional Epi Cells Urine Rare /hpf (None Seen); Urobilinogen Urine Negative mg/dL (<2.0); WBC Urine 16-20 /hpf
[2021-07-17 00:56] LABS: Lactic Acid Reflex 0.9 mmol/L (0.7-2.1); Poikilocytosis 1+ (NORMAL)
[2021-07-17 00:57] LABS: INR 1.3; Partial Thromboplastin Time 33.7 SECONDS (22.3-36.8); Platelet Estimate Adequate (Adequate); Prothrombin Time 16.4 Seconds (11.1-14.7)
[2021-07-17 01:10] LABS: Blood Urine Negative (Negative)
[2021-07-17 01:38] LABS: Alanine Aminotransferase 12 U/L (4-35); Albumin Level 2.8 g/dL (3.5-5.1); Alkaline Phosphatase 96 U/L (38-126); Anion Gap 8 mmol/L (8-16); Aspartate Amino Transferase 31 U/L (14-36); Bilirubin,Total 0.7 mg/dL (0.2-1.3); Blood Urea Nitrogen 28 mg/dL (7-17); Calcium 8.6 mg/dL (8.4-10.2); Carbon Dioxide 24 mmol/L (22-30); Chloride 110 mmol/L (98-107); Estimated CRCL calculation 48 ml/min; Estimated Glomerular Filt Rate > 60; Glucose 118 mg/dL (65-110); NT Pro B Type Natriuretic Pept 9070 pg/mL (5-100); Potassium 2.5 mmol/L (3.4-5.0); Sodium 142 mmol/L (137-145); Troponin I 0.078 ng/mL (0.000-0.034)
--- NOTE | 2021-07-17 02:01 | ED.GENADULT ---
HPI - General Adult General Chief complaint: Shortness of Breath/Dyspnea Stated complaint: LOW O2 SATS,COVID+ Time Seen by Provider: 07/16/21 23:58 History of Present Illness HPI narrative: Patient is 76-year-old female presents the emergency department with chief complaint of hypoxia. Patient was recently admitted to the hospital for COVID-19 infection patient was treated and ultimately was able to be discharged to the senior care patient today was found to have oxygen saturations in the 80s on her normal oxygen regimen. Patient currently states that she feels okay denies chest pain denies shortness of breath denies fever chills or body aches. The patient came in saturating 88% on 6 L and is currently on 10 L of high flow nasal cannula Related Data Home Medications Medication Instructions Recorded Confirmed docusate sodium [Colace] 100 mg PO DAILY 02/26/21 07/05/21 escitalopram oxalate 10 mg PO HS 02/26/21 07/05/21 ezetimibe 10 mg PO DAILY 02/26/21 07/05/21 gabapentin 100 mg PO DAILY 02/26/21 07/05/21 metoprolol tartrate 75 mg PO BID 02/26/21 07/05/21 pantoprazole 40 mg PO BID 02/26/21 07/05/21 prednisone 15 mg PO DAILY 02/26/21 07/05/21 Adults Multivitamin 1 tablet PO DAILY 05/18/21 07/05/21 ascorbic acid (vitamin C) 500 mg PO BID 05/18/21 07/05/21 diclofenac sodium 2 g TOPICAL Q8H PRN 05/18/21 07/05/21 silver sulfadiazine 1 applic TOPICAL DAILY 07/05/21 07/05/21 Allergies Allergy/AdvReac Type Severity Reaction Status Date / Time codeine AdvReac Nausea Verified 07/17/21 00:01 Review of Systems Review of Systems: A 10 system review of systems was completed on the patient and is negative except for what is stated in the HPI. Nursing and ancillary documentation was reviewed. [facility] Past Medical History Medical History Acute on chronic blood loss anemia Acute on chronic renal failure Alpha thalassemia Anemia Anemia CAD (coronary artery disease) Chronic indwelling Hines catheter Chronic renal failure, stage 3 (moderate) Congestive heart failure Diastolic heart failure DVT (deep venous thrombosis) E coli bacteremia (~05/2021) Elevated troponin Fecal impaction Gastroesophageal reflux disease Heart failure Hyperlipidemia Hypertension MRSA (methicillin resistant staph aureus) culture positive Osteoarthritis Paroxysmal atrial fibrillation Paroxysmal atrial fibrillation Pressure ulcer of sacral region, stage 4 (Unknown) Restless leg syndrome Sarcoidosis Surgical History Surgical History History of bilateral cataract extraction History of bowel resection History of hernia repair History of partial hysterectomy History of tubal ligation Family History Family History Mother Stomach cancer Social History Social History Social History: The patient is and 2 children. She is currently at [facility]. She is retired from the [employer] office. Lifelong nonsmoker. No alcohol or illicit substance use. Emergency contact: Aisha Henao, daughter. Smoking status: Former smoker Alcohol intake: former Substance use: never Spiritual care concerns: No Exam Narrative: GENERAL: Well-appearing, well-nourished, and in no acute distress. HEAD: Normocephalic, atraumatic. EYES: PERRLA and EOMI. ENT: Nares clear, no rhinorrhea or epistaxis. Mucous membranes moist. NECK: Supple. CHEST: Clear to auscultation. No respiratory distress. HEART: Regular rate and rhythm. No murmur heard. Normal peripheral pulses. ABDOMEN: Soft, nontender, nondistended, normal active bowel sounds. EXTREMITIES: Normal range of motion. No edema. SKIN: Warm, dry, no rash. NEURO: No focal deficits. Alert and oriented x3. PSYCH: Normal mood and affect. [place]
[2021-07-17] MEDS: ASPIRIN 81 MG CHEWABLE TABLET 324 MG PO (02:32)
[2021-07-17] MEDS: SODIUM CHLORIDE 0.9% IV 1,000 ML 130 ML IV CONT (02:33)
[2021-07-17 03:26] LABS: Magnesium 2.1 mg/dL (1.6-2.3)
[2021-07-17 03:48] LABS: Troponin I 0.075 ng/mL (0.000-0.034)
--- NOTE | 2021-07-17 03:50 | PC.NURSE ---
Received critical troponin level from lab of 0.075. Dr. Aguillon made aware at this time.
--- NOTE | 2021-07-17 04:56 | PM.IMHP ---
H&P: HPI History of Present Illness Date/Time: 07/17/21 04:56 Chief Complaint: Low oxygen saturations Narrative: 76-year-old female with past medical history hypertension, right-sided heart failure, diastolic heart failure, sarcoidosis, paroxysmal atrial fibrillation on anticoagulation, chronic kidney disease, chronic stage IV sacral decubitus ulcer, and chronic indwelling Hines catheter who presented to the ER via EMS from [facility] with low oxygen saturations. The patient has been on oxygen since her discharge from the hospital 07/10/2021 due to COVID. It is unclear how much oxygen use on at the prison but who on 2 L nasal cannula when she was last discharged. She reports that on the she began having a cough that got progressively worse throughout the day. When nursing staff around at the prison she was found to be having oxygen saturations in the 80s. She was placed on 5 L for EMS. When she arrived to the ER she was satting 62% on room air. To placed on 10 L nasal cannula to maintain oxygen saturations between 91 and 95%. She denies any increased shortness of breath from baseline. She has chronic lower extremity swelling that she does not think has changed from baseline. She denies any recent fevers or chills. She reports that since she arrived to the ER her cough has actually improved and pretty much resolved. She has a chronic indwelling Hines catheter and does not have any evidence of hematuria. Her urine is somewhat cloudy. She has a chronic decubitus ulcer that is dressed each day. She reports the prison staff has not told of any changes in the wound. She had her last bowel movement on the morning of the . She reports that her bowel movements tend to be relatively explosive is she no longer takes any stool softeners. She has not had any nausea or vomiting. She is alert oriented and denies any confusion. She denies any chest pain. She has been receiving her home Eliquis and heart failure medications. During her last hospitalization the patient was noted to be severely hypokalemic and is again hypokalemic on this admission. Review of Systems Review of Systems: 12 systems were reviewed with pertinent positives and negatives per HPI. Except as documented in the HPI, all other systems were reviewed and are negative. [facility] Past Medical History Medical History (Updated 07/17/21 @ 05:28 by Namrata Giles DO) Alpha thalassemia Anemia Multifactorial due to prior blood loss and alpha thalassemia CAD (coronary artery disease) Chronic indwelling Hines catheter (~09/2019) Due to stage IV decubitus ulcer Chronic kidney disease, stage 3 Baseline creatinine around 1 Congestive heart failure Echocardiogram 02/26/2021: EF 60-65%, grade 1 diastolic dysfunction, [id number] tricuspid regurgitation, right ventricular dimension moderately enlarged, right ventricular systolic function reduced, moderate left atrial enlargement, mild right atrial enlargement Diastolic heart failure DVT (deep venous thrombosis) E coli bacteremia (~05/2021) Gastroesophageal reflux disease Hyperlipidemia Hypertension Ischemic cardiomyopathy MRSA (methicillin resistant staph aureus) culture positive Osteoarthritis Paroxysmal atrial fibrillation Pressure ulcer of sacral region, stage 4 (Unknown) Since September 2019: With cultures positive for Klebsiella pneumonia ESBL 07/08/2021 Restless leg syndrome Sarcoidosis Surgical History Surgical History History of bilateral cataract extraction History of bowel resection History of hernia repair History of partial hysterectomy History of tubal ligation Family History Family History Mother Stomach cancer Social History Social History (Updated 07/17/21 @ 05:29 by Namrata Giles DO) Social History: The patient is and 2 children. She is currentl
--- NOTE | 2021-07-17 05:25 | PC.NURSE ---
Pt to floor with abx running so IV fluids not discontinued by this RN.
--- NOTE | 2021-07-17 05:48 | ADMGEN ---
This patient, Tegan Martines, was admitted to IMU Room 232-01. Patient/family oriented to hospital policies and general routines including ID bracelet, bed and alarms, visiting hours, pain management, procedures, bathroom and other care routines, personal items, smoking policy, room service/diet, and visiting hours. Information on how to activate the Rapid Response Team has been discussed. Patient/Family are encouraged to report perceived risks to care and to ask questions if they do not understand what they are told or what they should do.
[2021-07-17] MEDS: POTASSIUM CHLORIDE 20 MEQ TABLET 40 MEQ PO (06:25)
[2021-07-17] MEDS: ALBUTEROL SULFATE NEB 2.5 MG/0.5 ML INH 5 MG INHALATION ×3 (09:01→21:04)
[2021-07-17] MEDS: IPRATROPIUM BR 0.02% INH SOLN 0.5 MG/2.5 ML VIAL INHALATION ×3 (09:02→21:04)
[2021-07-17] MEDS: PANTOPRAZOLE 40 MG TABLET PO ×2 (09:33→16:53)
[2021-07-17] MEDS: MULTIVITAMINS /C LUTEIN (CENTRUM SILVER) TABLET *BKC 1 TAB PO (09:34)
[2021-07-17] MEDS: METOPROLOL TARTRATE 50 MG TAB 100 MG PO ×2 (09:34→21:00)
[2021-07-17] MEDS: amLODIPine BESYLATE 5 MG TABLET 10 MG PO (09:35)
[2021-07-17] MEDS: EZETIMIBE 10 MG TABLET PO (09:35)
[2021-07-17] MEDS: GABAPENTIN 100 MG CAPSULE PO (09:35)
[2021-07-17] MEDS: APIXABAN 5 MG TABLET PO ×2 (09:35→21:00)
[2021-07-17] MEDS: hydrALAZINE HCL 50 MG TABLET PO ×3 (09:36→16:53)
[2021-07-17] MEDS: FERROUS SULFATE 324 MG TABLET PO ×2 (09:36→16:53)
[2021-07-17] MEDS: SILVER SULFADIAZINE 1% CR 400 GM JAR (*BKC) 1 APPLIC TOPICAL (12:34)
[2021-07-17 13:15] LABS: Potassium 3.1 mmol/L (3.4-5.0)
--- NOTE | 2021-07-17 15:22 | PM.IMPN ---
Progress Note: A&P Assessment and Plan (1) Acute and chronic respiratory failure with hypoxia: Code(s): J96.21 - Acute and chronic respiratory failure with hypoxia Status: Acute (2) Pneumonia: Qualifiers: Laterality: bilateral Lung location: unspecified part of lung Pneumonia type: due to unspecified organism Qualified Code(s): J18.9 - Pneumonia, unspecified organism Code(s): J18.9 - Pneumonia, unspecified organism Status: Acute Assessment and Plan: Question of secondary bacterial pneumonia though likelihood is a bit on the lower side P Check procalcitonin level. Monitor fever curve. Follow WBC trend. Follow cultures. Continue Zosyn and vancomycin for now. Deescalate antibiotics based on further clinical data. Will send MRSA screen and if it is negative then will discontinue vancomycin. Repeat chest x-ray in 2 days time. (3) Pneumonia due to COVID-19 virus: Code(s): U07.1 - COVID-19; J12.82 - Pneumonia due to coronavirus disease 2018 Status: Acute Assessment and Plan: Continue dexamethasone at current dose. Increase the dose if any worsening of oxygenation noticed. Continue to trend inflammatory markers and check CRP and D-dimer in the a.m.. CT of the chest was negative for PE. It does show extensive multifocal ground-glass infiltrate with air bronchogram likely secondary to COVID-19 pneumonia. (4) Acute hypokalemia: Code(s): E87.6 - Hypokalemia Status: Acute Assessment and Plan: Replace potassium. Repeat BMP in the a.m.. (5) Acute on chronic diastolic (congestive) heart failure: Code(s): I50.33 - Acute on chronic diastolic (congestive) heart failure Status: Acute Assessment and Plan: Continue Lasix at current dose. Strict intake output record and daily weight. Continue to monitor renal parameters and electrolytes. (6) DVT (deep venous thrombosis): Code(s): I82.409 - Acute embolism and thrombosis of unspecified deep veins of unspecified lower extremity Status: Acute Assessment and Plan: Systemic anticoagulation with apixaban (7) Paroxysmal atrial fibrillation: Code(s): I48.0 - Paroxysmal atrial fibrillation Status: Acute Assessment and Plan: Currently rate control with metoprolol. Continue apixaban. Follow for any bleeding sign. (8) Chronic GERD: Code(s): K21.9 - Gastro-esophageal reflux disease without esophagitis Status: Chronic Assessment and Plan: Continue pantoprazole with the b.i.d. dosing. (9) Hypertension: Code(s): I10 - Essential (primary) hypertension Status: Chronic Assessment and Plan: Continue amlodipine and metoprolol. Continue to monitor hemodynamics closely. Additional Plan The patient has recurrent acute hypokalemia. She received 20 mEq of IV potassium in the ER. Will add 40 mEq p.o.. Will check repeat potassium level around 1:00 p.m.. Subjective Date/time seen: 07/17/21 15:22 She was on 10 L of oxygen at the time of my evaluation. Feeling better with less shortness of breath today. She denied have any significant cough or chest pain. Her blood pressure was noticed to be elevated. Her potassium was 2.5 and was replated. Troponin remained flat. She remain on IV Lasix with dose increased. Review of Systems Review of Systems: A comprehensive review of systems has been reviewed with the patient and most of the symptoms are negative except the one's mentioned above in HPI. Exam Narrative: PHYSICAL EXAM: General awake and alert not in distress Respiratory: Coarse breath sounds bilaterally with crackles at the bases, no increased work of breathing no wheezing heard Cardiovascular: Sinus rhythm Gastrointestinal: Soft, slightly distended, nontender, ventral hernia soft easily reducible Skin: Large decubitus ulcer on the sacrum and coccyx, dried flaking skin to bilater
[2021-07-17] MEDS: FUROSEMIDE INJ 40 MG/4 ML VIAL IV PUSH (16:53)
[2021-07-17] MEDS: POTASSIUM CHLORIDE 20 MEQ PACKET (FOR LIQUID) 40 MEQ PO ×2 (18:53→22:59)
[2021-07-17] MEDS: ESCITALOPRAM OXALATE 10 MG TABLET PO (21:00)
[2021-07-18] VITALS (31 sets, daily range): BP systolic 109–143; BP diastolic 59–74; PULSE 59–97; RESP 18–22; TEMP 35.9–36.7; O2SAT 90–99
[2021-07-18] MEDS: ALBUTEROL SULFATE NEB 2.5 MG/0.5 ML INH 5 MG INHALATION ×4 (03:05→21:14)
[2021-07-18] MEDS: IPRATROPIUM BR 0.02% INH SOLN 0.5 MG/2.5 ML VIAL INHALATION ×4 (03:05→21:14)
[2021-07-18 04:55] LABS: Basophils Percent Auto 0.1 % (0.2-1.2); Hematocrit 29.5 % (37.0-47.0); Hemoglobin 9.2 g/dL (12.0-15.0); Immature Granulocyte Absolute 0.11 K/mm3 (0.00-0.031); Immature Granulocyte Percent A 0.9 % (0-0.5); Lymphocytes Absolute Auto 0.39 K/mm3 (0.9-3.2); Lymphocytes Percent Auto 3.3 % (18.3-44.2); Mean Corpuscular HGB Conc 31.2 g/dl (32-36); Mean Corpuscular Hemoglobin 24.3 pg (26-34); Mean Corpuscular Volume 77.8 fl (80-100); Mean Platelet Volume 10.3 fl (7.4-10.4); Monocytes Absolute Auto 0.4 K/mm3 (0.1-0.6); Monocytes Percent Auto 2.9 % (2.6-8.5); Neutrophils Absolute Auto 11.1 K/mm3 (1.3-6.7); Neutrophils Percent Auto 92.8 % (45.5-73.1); Nucleated Red Blood Cells Perc 0.3 % (0.0-0.2); Platelet Count Result 360 k/mm3 (150-375); Red Blood Count 3.79 M/mm3 (4.2-5.4); Red Cell Distribution Width 19.2 % (11.5-14.5)
[2021-07-18 05:19] LABS: D Dimer 3.79 ug/mL (<0.48)
[2021-07-18 05:23] LABS: Platelet Estimate Adequate (Adequate)
[2021-07-18 05:24] LABS: Hypochromasia 1+ (NORMAL); Poikilocytosis 1+ (NORMAL)
[2021-07-18 05:44] LABS: Anion Gap 6 mmol/L (8-16); Blood Urea Nitrogen 28 mg/dL (7-17); Calcium 7.9 mg/dL (8.4-10.2); Carbon Dioxide 23 mmol/L (22-30); Chloride 110 mmol/L (98-107); Estimated CRCL calculation 35 ml/min; Estimated Glomerular Filt Rate 53; Glucose 123 mg/dL (65-110); Magnesium 2.1 mg/dL (1.6-2.3); Potassium 3.3 mmol/L (3.4-5.0); Sodium 139 mmol/L (137-145)
[2021-07-18] MEDS: POTASSIUM CHLORIDE 20 MEQ PACKET (FOR LIQUID) 40 MEQ PO ×2 (05:48→13:17)
[2021-07-18 06:02] LABS: CRP 4.4 mg/dL (<1.0)
[2021-07-18] MEDS: PANTOPRAZOLE 40 MG TABLET PO ×2 (09:32→17:04)
[2021-07-18] MEDS: EZETIMIBE 10 MG TABLET PO (09:33)
[2021-07-18] MEDS: GABAPENTIN 100 MG CAPSULE PO (09:33)
[2021-07-18] MEDS: METOPROLOL TARTRATE 50 MG TAB 100 MG PO ×2 (09:33→20:28)
[2021-07-18] MEDS: MULTIVITAMINS /C LUTEIN (CENTRUM SILVER) TABLET *BKC 1 TAB PO (09:33)
[2021-07-18] MEDS: DEXAMETHASONE SOD PHOS INJ 4 MG/ML VIAL 6 MG IV PUSH (09:34)
[2021-07-18] MEDS: hydrALAZINE HCL 50 MG TABLET PO (09:34)
[2021-07-18] MEDS: amLODIPine BESYLATE 5 MG TABLET 10 MG PO (09:34)
[2021-07-18] MEDS: APIXABAN 5 MG TABLET PO ×2 (09:34→20:28)
[2021-07-18] MEDS: FERROUS SULFATE 324 MG TABLET PO ×2 (09:35→17:04)
--- NOTE | 2021-07-18 11:44 | PCPTNOTE ---
Attempted therapy, but pt refused therapy and does not feel like she needs therapy. She has other things to think about instead of therapy.
[2021-07-18] MEDS: SILVER SULFADIAZINE 1% CR 400 GM JAR (*BKC) 1 APPLIC TOPICAL (13:17)
--- NOTE | 2021-07-18 14:05 | PM.IMPN ---
Progress Note: A&P Assessment and Plan (1) Acute and chronic respiratory failure with hypoxia: Code(s): J96.21 - Acute and chronic respiratory failure with hypoxia Status: Acute Assessment and Plan: She was on 10 L of oxygen at the time of my evaluation through nasal cannula. One of her prong was out of her nose at the time of my evaluation which was adjusted at the bedside. She was weaned down to 6 L as her oxygen saturation was in mid 90s. Continue to wean oxygen if tolerated. Keep oxygen saturation above 90%. (2) Pneumonia: Qualifiers: Laterality: bilateral Lung location: unspecified part of lung Pneumonia type: due to unspecified organism Qualified Code(s): J18.9 - Pneumonia, unspecified organism Code(s): J18.9 - Pneumonia, unspecified organism Status: Acute Assessment and Plan: Question of secondary bacterial pneumonia though likelihood is a bit on the lower side. Follow procalcitonin level. Monitor fever curve. Follow WBC trend. Follow cultures. Continue Zosyn and vancomycin for now. Deescalate antibiotics based on further clinical data. Follow MRSA screen and if it is negative then will discontinue vancomycin. Repeat chest x-ray in 2 days time. (3) Pneumonia due to COVID-19 virus: Code(s): U07.1 - COVID-19; J12.82 - Pneumonia due to coronavirus disease 2019 Status: Acute Assessment and Plan: Continue dexamethasone at current dose of 6 mg IV once a day. Increase the dose if any worsening of oxygenation noticed. Continue to monitor inflammatory markers. CRP was 4.4 today which is down from 5.0. Mild increase in D-dimer noticed. It was 3.79 today which is up from 3.51. She had a negative CTA of the chest at the time of presentation. I will get Doppler ultrasound of the bilateral lower extremity. CT of the chest was negative for PE. It does show extensive multifocal ground-glass infiltrate with air bronchogram likely secondary to COVID-19 pneumonia. (4) Acute hypokalemia: Code(s): E87.6 - Hypokalemia Status: Acute Assessment and Plan: Replace potassium. Repeat BMP in the a.m.. (5) Acute on chronic diastolic (congestive) heart failure: Code(s): I50.33 - Acute on chronic diastolic (congestive) heart failure Status: Acute Assessment and Plan: Will stop IV Lasix. Her creatinine has been noticed to be trending up today. She is getting euvolemic on clinical exam as well. Will continue her on p.o. Lasix with 40 mg once a day. IV Lasix intermittently based on her fluid status. Her baseline is 20 mg twice a day. Strict intake output record and daily weight. Continue to monitor renal parameters and electrolytes. (6) DVT (deep venous thrombosis): Code(s): I82.409 - Acute embolism and thrombosis of unspecified deep veins of unspecified lower extremity Status: Acute Assessment and Plan: Systemic anticoagulation with apixaban (7) Paroxysmal atrial fibrillation: Code(s): I48.0 - Paroxysmal atrial fibrillation Status: Acute Assessment and Plan: Currently rate control with metoprolol. Continue apixaban. Follow for any bleeding sign. (8) Chronic GERD: Code(s): K21.9 - Gastro-esophageal reflux disease without esophagitis Status: Chronic Assessment and Plan: Continue pantoprazole with the b.i.d. dosing. (9) Hypertension: Code(s): I10 - Essential (primary) hypertension Status: Chronic Assessment and Plan: Continue amlodipine and metoprolol. Continue to monitor hemodynamics closely. Additional Plan She has been refusing for cooperating with PT OT for ambulation. Subjective Date/time seen: 07/18/21 14:05 She was on 10 L of oxygen through OxyMask which was weaned down to 6 L at the bedside is her oxygen saturation was in mid 90s. One of her oxygen cannula was out of her nose when I evaluated her at the be
--- NOTE | 2021-07-18 15:58 | PC.NURSE ---
Notified Dr. Hampton of low blood pressures of 110/59 at 1300 and 109/60 at 1530. verbal orders to discontinue hydralazine PO. Also notified of increase oxygen needs from 8L HF NC to 15L HFNC plus a 15L NRB. Verbal orders to give 4mg IVP Decadron now, then increase Decadron daily order to 10mg. Will continue to monitor according to units standard of care.
[2021-07-18] MEDS: DEXAMETHASONE SOD PHOS INJ 4 MG/ML VIAL IV PUSH (17:04)
[2021-07-18] MEDS: ESCITALOPRAM OXALATE 10 MG TABLET PO (20:28)
[2021-07-18] MEDS: POTASSIUM CHLORIDE 20 MEQ TABLET 40 MEQ PO (20:28)
[2021-07-19] VITALS (26 sets, daily range): BP systolic 128–149; BP diastolic 62–77; PULSE 64–80; RESP 18–24; TEMP 36–36.9; O2SAT 91–99; BMI 27.6
[2021-07-19] MEDS: POTASSIUM CHLORIDE 20 MEQ TABLET 40 MEQ PO (01:09)
[2021-07-19] MEDS: ALBUTEROL SULFATE NEB 2.5 MG/0.5 ML INH 5 MG INHALATION ×4 (02:29→20:45)
[2021-07-19] MEDS: IPRATROPIUM BR 0.02% INH SOLN 0.5 MG/2.5 ML VIAL INHALATION ×4 (02:29→20:45)
[2021-07-19 04:43] LABS: Basophils Percent Auto 0.2 % (0.2-1.2); Hemoglobin 8.7 g/dL (12.0-15.0); Immature Granulocyte Absolute 0.13 K/mm3 (0.00-0.031); Lymphocytes Absolute Auto 0.33 K/mm3 (0.9-3.2); Lymphocytes Percent Auto 2.6 % (18.3-44.2); Mean Corpuscular HGB Conc 31.1 g/dl (32-36); Mean Corpuscular Hemoglobin 24.5 pg (26-34); Mean Corpuscular Volume 78.9 fl (80-100); Mean Platelet Volume 9.8 fl (7.4-10.4); Monocytes Absolute Auto 0.4 K/mm3 (0.1-0.6); Monocytes Percent Auto 2.7 % (2.6-8.5); Neutrophils Absolute Auto 11.9 K/mm3 (1.3-6.7); Neutrophils Percent Auto 93.5 % (45.5-73.1); Nucleated Red Blood Cells Perc 0.2 % (0.0-0.2); Platelet Count Result 352 k/mm3 (150-375); Red Blood Count 3.55 M/mm3 (4.2-5.4); Red Cell Distribution Width 19.4 % (11.5-14.5); White Blood Count 12.8 K/mm3 (4.5-10.0)
[2021-07-19 05:03] LABS: Anion Gap 6 mmol/L (8-16); Blood Urea Nitrogen 25 mg/dL (7-17); Calcium 8.1 mg/dL (8.4-10.2); Carbon Dioxide 21 mmol/L (22-30); Chloride 110 mmol/L (98-107); Estimated CRCL calculation 35 ml/min; Estimated Glomerular Filt Rate 53; Glucose 108 mg/dL (65-110); Potassium 4.3 mmol/L (3.4-5.0); Sodium 137 mmol/L (137-145)
[2021-07-19 05:07] LABS: Platelet Estimate Adequate (Adequate)
[2021-07-19 05:09] LABS: Crenated RBC 1+ (NORMAL); Microcytosis 1+ (NORMAL); Ovalocytes 1+ (NORMAL)
[2021-07-19] MEDS: amLODIPine BESYLATE 5 MG TABLET 10 MG PO (08:53)
[2021-07-19] MEDS: PANTOPRAZOLE 40 MG TABLET PO ×2 (08:53→17:35)
[2021-07-19] MEDS: GABAPENTIN 100 MG CAPSULE PO (08:53)
[2021-07-19] MEDS: EUCERIN CREAM 120 GM JAR 1 APPLIC TOPICAL (08:54)
[2021-07-19] MEDS: APIXABAN 5 MG TABLET PO ×2 (08:54→20:19)
[2021-07-19] MEDS: FUROSEMIDE 40 MG TABLET PO (08:54)
[2021-07-19] MEDS: MULTIVITAMINS /C LUTEIN (CENTRUM SILVER) TABLET *BKC 1 TAB PO (08:54)
[2021-07-19] MEDS: METOPROLOL TARTRATE 50 MG TAB 100 MG PO ×2 (08:54→20:19)
[2021-07-19] MEDS: SILVER SULFADIAZINE 1% CR 400 GM JAR (*BKC) 1 APPLIC TOPICAL (08:54)
[2021-07-19] MEDS: EZETIMIBE 10 MG TABLET PO (08:54)
[2021-07-19] MEDS: FERROUS SULFATE 324 MG TABLET PO ×2 (08:54→17:35)
[2021-07-19] MEDS: ERTAPENEM 1 GM/NS 50 ML 1 GM/50 ML BAG IVPB (09:56)
--- NOTE | 2021-07-19 10:24 | PM.IMPN ---
Progress Note: A&P Assessment and Plan (1) Acute and chronic respiratory failure with hypoxia: Code(s): J96.21 - Acute and chronic respiratory failure with hypoxia Status: Acute Assessment and Plan: She was not on O2 prior to her initial illness last month but discharged on 07/10 on 2L. She presents with SOB and hypoxia probably related to COVID given the Chest CTA findings of extensive multifocal ground glass infiltrates with air bronchograms, likely due to COVID pneumonia. Pulmonary edema is a possibility and was treated with Lasix IV. Also on IV abx as well. Will check for aspiration. Wean o2 as toerlated. (2) Pneumonia: Qualifiers: Laterality: bilateral Lung location: unspecified part of lung Pneumonia type: due to unspecified organism Qualified Code(s): J18.9 - Pneumonia, unspecified organism Code(s): J18.9 - Pneumonia, unspecified organism Status: Acute Assessment and Plan: Patient left here on 2L and now severely hypoxic. No CO2 retention. Question of secondary bacterial pneumonia though likelihood is a bit on the lower side. Procalcitonin level pending. BCx NGTD. No fevers but patietn was hypothermic on admission. WBC essentially unchanged but possibly related to steroids. MRSA nasal swab negative. Will stop Vanco and change Zosyn to Ertapenem. Check swallow evaluation. (3) Pneumonia due to COVID-19 virus: Code(s): U07.1 - COVID-19; J12.82 - Pneumonia due to coronavirus disease 2019 Status: Acute Assessment and Plan: She presumably tested positive for COVID on 06/28 per the notes in [facility] chart. She was hospitalized here on 07/04 for hypoxia. She normally does not wear O2. She was treated with dexamethasone, baricitinib and remdesivir. She was discharged from here on 07/10 on 2L/min O2. She returns for hypoxia. DDimer was 3.51 but CTA negative for PE and LE venous dopples negative for DVT. CRP 4.4. Dexamethasone started. She remains on HFNC at this time. Continue dexamethasone at current dose of 6 mg IV once a day. Continue to monitor inflammatory markers. (4) Elevated troponin: Code(s): R77.8 - Other specified abnormalities of plasma proteins Status: Acute Assessment and Plan: Troponin elevated but flat at 0.078. EKG reviewed and not showing acute changes. Suspect related to nonischemic myocardial injury. (5) Urinary tract infection: Qualifiers: Hematuria presence: with hematuria Urinary tract infection type: acute cystitis Qualified Code(s): N30.01 - Acute cystitis with hematuria Code(s): N39.0 - Urinary tract infection, site not specified Status: Acute Assessment and Plan: UA noted. SHe has chronic indwelling Hines due to Sacral decubitus ulcer. UCx last admission with ESBL Klebsiella treated with meropenum. Repeat UCx here again showing ESBL Klebsiella. Will change Zosyn to Ertapenem. Change out Hines (6) Acute on chronic diastolic (congestive) heart failure: Code(s): I50.33 - Acute on chronic diastolic (congestive) heart failure Status: Acute Assessment and Plan: Echo in February 2021 with EF 60-65% and grade I diastolic dysfunction. Was on IV Lasix but this has since arsen stopped. Her creatinine up to 1.2 but stable. She is getting euvolemic on clinical exam as well. Her oral Lasix (at 40 mg daily instead of 20mg bid) resumed. Treat with IV Lasix intermittently based on her fluid status. Continue to monitor renal parameters and electrolytes. (7) Acute hypokalemia: Code(s): E87.6 - Hypokalemia Status: Acute Assessment and Plan: Potassium 2.5 on admission. This has been replaced and repeat potassium normal. Follow. (8) Paroxysmal atrial fibrillation: Code(s): I48.0 - Paroxysmal atrial fibrillation Status: Acute Assessment and Plan: Tele reviewed. Currently rate control with metoprolol. Continue apixaban. Follow for any sign of bleeding
[2021-07-19] MEDS: SILVERGEL (ELTA) 45 ML 1 APPLIC TOPICAL (17:35)
[2021-07-19] MEDS: ACETAMINOPHEN 325 MG TABLET 650 MG PO (17:41)
[2021-07-19] MEDS: ESCITALOPRAM OXALATE 10 MG TABLET PO (20:21)
[2021-07-20] VITALS (19 sets, daily range): BP systolic 133–155; BP diastolic 50–64; PULSE 66–89; RESP 18–35; TEMP 36.3–36.8; O2SAT 85–91
[2021-07-20] MEDS: IPRATROPIUM BR 0.02% INH SOLN 0.5 MG/2.5 ML VIAL INHALATION ×3 (02:41→14:46)
[2021-07-20] MEDS: ALBUTEROL SULFATE NEB 2.5 MG/0.5 ML INH 5 MG INHALATION ×3 (02:41→14:46)
[2021-07-20] MEDS: ACETAMINOPHEN 325 MG TABLET 650 MG PO (04:23)
[2021-07-20 05:48] LABS: Basophils Percent Auto 0.2 % (0.2-1.2); Hematocrit 29.1 % (37.0-47.0); Immature Granulocyte Absolute 0.14 K/mm3 (0.00-0.031); Immature Granulocyte Percent A 1.1 % (0-0.5); Lymphocytes Absolute Auto 0.38 K/mm3 (0.9-3.2); Mean Corpuscular HGB Conc 30.9 g/dl (32-36); Mean Corpuscular Hemoglobin 24.3 pg (26-34); Mean Corpuscular Volume 78.6 fl (80-100); Mean Platelet Volume 10.2 fl (7.4-10.4); Monocytes Absolute Auto 0.4 K/mm3 (0.1-0.6); Monocytes Percent Auto 3.4 % (2.6-8.5); Neutrophils Absolute Auto 11.8 K/mm3 (1.3-6.7); Neutrophils Percent Auto 92.3 % (45.5-73.1); Nucleated Red Blood Cells Absolute Auto 0.1 K/mm3 (0.0-0.012); Nucleated Red Blood Cells Perc 0.4 % (0.0-0.2); Platelet Count Result 362 k/mm3 (150-375); Red Cell Distribution Width 19.5 % (11.5-14.5); White Blood Count 12.8 K/mm3 (4.5-10.0)
[2021-07-20 06:05] LABS: Alanine Aminotransferase 11 U/L (4-35); Albumin Level 2.6 g/dL (3.5-5.1); Alkaline Phosphatase 55 U/L (38-126); Anion Gap 6 mmol/L (8-16); Aspartate Amino Transferase 28 U/L (14-36); Bilirubin,Total 0.4 mg/dL (0.2-1.3); Blood Urea Nitrogen 26 mg/dL (7-17); CRP 1.8 mg/dL (<1.0); Calcium 8.3 mg/dL (8.4-10.2); Carbon Dioxide 22 mmol/L (22-30); Chloride 109 mmol/L (98-107); D Dimer 3.89 ug/mL (<0.48); Estimated CRCL calculation 38 ml/min; Estimated Glomerular Filt Rate 59; Glucose 84 mg/dL (65-110); Lactate Dehydrogenase 800 U/L (313-618); Magnesium 2.1 mg/dL (1.6-2.3); Phosphorus 1.6 mg/dL (2.5-4.5); Potassium 4.6 mmol/L (3.4-5.0); Sodium 137 mmol/L (137-145)
--- NOTE | 2021-07-20 08:49 | PM.IMPN ---
Progress Note: A&P Assessment and Plan (1) Acute and chronic respiratory failure with hypoxia: Code(s): J96.21 - Acute and chronic respiratory failure with hypoxia Status: Acute Assessment and Plan: She was not on O2 prior to her initial illness last month but discharged on 07/10 on 2L. She presents with SOB and hypoxia probably related to COVID. Given the Chest CTA findings of extensive multifocal ground glass infiltrates with air bronchograms, likely due to COVID pneumonia. Pulmonary edema is a possibility and was treated with Lasix IV. Also on IV abx as well. She passed her bedside wallow evaluation yesterday. She is more hypoxic this morning. BiPAP ordered and placed today. Patient is DNR and she reiterates that is her wish. Will start BiPAP 14/8 and 100% FiO2 and wean off as tolerated. Check ABG and CXR pending from this moring. Discussed end of life issues with her and assured her that we would keep her comfortable if her condition worsens. Discussed with family (dtr) by phone. 35 minutes spent on critical care time (2) Pneumonia: Qualifiers: Laterality: bilateral Lung location: unspecified part of lung Pneumonia type: due to unspecified organism Qualified Code(s): J18.9 - Pneumonia, unspecified organism Code(s): J18.9 - Pneumonia, unspecified organism Status: Acute Assessment and Plan: Patient left here on 2L and now severely hypoxic. No CO2 retention. Question of secondary bacterial pneumonia though likelihood is a bit on the lower side. Procalcitonin level pending. BCx NGTD. No fevers but patient was hypothermic on admission. WBC essentially unchanged but possibly related to steroids. MRSA nasal swab negative. Vanco stopped 07/19 and Zosyn changed to Ertapenem. Will change to Primaxin today. (3) Pneumonia due to COVID-19 virus: Code(s): U07.1 - COVID-19; J12.82 - Pneumonia due to coronavirus disease 2018 Status: Acute Assessment and Plan: She presumably tested positive for COVID on 06/28 per the notes in [facility] chart. She was hospitalized here on 07/04 for hypoxia. She normally does not wear O2. She was treated with dexamethasone, baricitinib and remdesivir. She was discharged from here on 07/10 on 2L/min O2. She returns for hypoxia. DDimer was 3.51 but CTA negative for PE and LE venous dopples negative for DVT. CRP 4.4. Dexamethasone started. CRP better but DDimer higher. Continue dexamethasone. Continue to monitor inflammatory markers. (4) Elevated troponin: Code(s): R77.8 - Other specified abnormalities of plasma proteins Status: Acute Assessment and Plan: Troponin elevated but flat at 0.078. EKG reviewed and not showing acute changes. Suspect elevated Trop related to nonischemic myocardial injury. (5) Urinary tract infection: Qualifiers: Hematuria presence: with hematuria Urinary tract infection type: acute cystitis Qualified Code(s): N30.01 - Acute cystitis with hematuria Code(s): N39.0 - Urinary tract infection, site not specified Status: Acute Assessment and Plan: UA noted. SHe has chronic indwelling Hines due to Sacral decubitus ulcer. UCx last admission with ESBL Klebsiella treated with meropenum. Repeat UCx here again showing ESBL Klebsiella. Abx changed to Ertapenem on 07/19. Will advance to Primaxin due to above. Hines was ordered to be changed out (6) Acute on chronic diastolic (congestive) heart failure: Code(s): I50.33 - Acute on chronic diastolic (congestive) heart failure Status: Acute Assessment and Plan: Echo in February 2021 with EF 60-65% and grade I diastolic dysfunction. Was on IV Lasix but this has since arsen stopped. Her creatinine was up to 1.2 but better today. Her oral Lasix (at 40 mg daily instead of 20mg bid) resumed. Continue to monitor renal parameters and electrolytes. Lasix IV once (7) Acute hypokalemia: Code(s): E87.6 - Hypokalemia Status: Acu
[2021-07-20 09:43] LABS: Alveolar/Arterial O2 Gradient 619.4 mmHg; Base Excess ABG -3.3 mEq/l (+/-2.0); Fractional Inspired Oxygen 100 %; HCO3 ABG 20.8 mEq/l (22.0-26.0); Oxygen Content ABG 13.7 %vol (16.0-22.0); Oxygen Saturation ABG 91.4 % (95.0-100.0); Oxyhemoglobin 89.9 % THb (90.0-100.0); PCO2 ABG 33.8 mmHg (35.0-45.0); PO2 ABG 59.8 mmHg (80.0-100.0); Total Hemoglobin 10.8 g/dL (12.0-18.0); pH ABG 7.407 (7.350-7.450)
[2021-07-20 09:44] LABS: Device BIPAP; Expiratory Pressure 8 cmH2O; Inspiratory Pressure 14 cmH2O; Modified Allen's Test Pass; Site Drawn RIGHT RADIAL
[2021-07-20] MEDS: SILVERGEL (ELTA) 45 ML 1 APPLIC TOPICAL (09:56)
[2021-07-20] MEDS: PANTOPRAZOLE 40 MG TABLET PO ×2 (10:06→17:04)
[2021-07-20] MEDS: MULTIVITAMINS /C LUTEIN (CENTRUM SILVER) TABLET *BKC 1 TAB PO (10:06)
[2021-07-20] MEDS: METOPROLOL TARTRATE 50 MG TAB 100 MG PO (10:08)
[2021-07-20] MEDS: EZETIMIBE 10 MG TABLET PO (10:08)
[2021-07-20] MEDS: FERROUS SULFATE 324 MG TABLET PO ×2 (10:09→17:04)
[2021-07-20] MEDS: GABAPENTIN 100 MG CAPSULE PO (10:10)
[2021-07-20] MEDS: EUCERIN CREAM 120 GM JAR 1 APPLIC TOPICAL (10:10)
[2021-07-20] MEDS: amLODIPine BESYLATE 5 MG TABLET 10 MG PO (10:11)
[2021-07-20] MEDS: APIXABAN 5 MG TABLET PO (10:11)
[2021-07-20] MEDS: FUROSEMIDE INJ 40 MG/4 ML VIAL IV PUSH (10:16)
[2021-07-20] MEDS: POTASSIUM/PHOSPHORUS/SODIUM 1.5 GM PACKET 1 PACKET PO (16:52)
[2021-07-20] MEDS: MORPHINE SULFATE INJ (*CRX) 50 MG in SODIUM CHLORIDE 0.9% IV 95 ML IV CONT (17:42)
[2021-07-20] MEDS: LORazepam INJ (*CRX) 2 MG/ML VIAL 1 MG IV PUSH ×2 (18:44→19:52)
--- NOTE | 2021-07-20 19:36 | PC.NURSE ---
pt. at 192. family in waiting area. dry pan charger also with pt. housekeeping lead notified.
--- NOTE | 2021-07-20 19:50 | PC.NURSE ---
[id number] - family at bedside - pt stated she is tired and wants mask off- family agreed and stated they want her comfortable
--- NOTE | 2021-07-20 21:38 | PC.NURSE ---
[facility] called pt in [facility] called
--- NOTE | 2021-07-21 08:02 | P.DN_ITS ---
Discharge Summary Date and Time Date of : 07/20/21 Time of : 19:23 Provider Pronounced By: baron cunningham Probable Cause of Probable Cause of : Acute respiratory failure from COVID-19 Summary Hospital Course: Patient was not on O2 prior to her initial illness last month but discharged on 07/10/21 on 2L. She presented to the ED with SOB and hypoxia probably related to COVID and admitted 07/17/21. Chest CTA showed extensive multifocal ground glass infiltrates with air bronchograms, likely due to COVID pneumonia. Pulmonary edema was possible and was treated with Lasix IV. IV abx added. She passed her bedside swallow evaluation. She became more hypoxic so BiPAP ordered. Patient is DNR and she reiterates that this is still her wish. Discussed end of life issues with her and assured her that we would keep her comfortable if her condition worsens. Discussed with family (dtr) by phone. The family came in to be with the patient. Patient and family decided on comfort measures. When they were ready, the patient was started on morphine and then BiPAP removed. She was kept comfortable and on 07/20/21. Additional Data Confirmation of as documented by pronouncing clinician: Pupillary Reflex, Palpable Pulses, Response to Stimuli, Heart Tones and Breath Sounds Name of Provider Notified: eva Time Provider Notified: 19:35 Provider Requests Autopsy: No Family Requests Autopsy: No Director Of Product Development Notified: Yes Date [facility] Notified of : 07/20/21 Time [facility] Notified of : 19:50
== END 2021-07-20 21:35 | disposition expired | DRG 177 ==
LOC: ANHED 07-17 04:16 → ANHIMU 07-17 05:30
PROVIDERS: Internal Medicine Critical Care Medicine; Admitting Provider Internal Medicine; Emergency Provider Emergency Medicine; PCP Family Medicine; Visit Provider Internal Medicine
DX: U07.1 COVID-19 (principal); L89.154 Pressure ulcer of sacral region, stage 4; J12.82 Pneumonia due to coronavirus disease 2019; I50.33 Acute on chronic diastolic (congestive) heart failure; J96.21 Acute and chronic respiratory failure with hypoxia; J15.9 Unspecified bacterial pneumonia; I13.0 Hypertensive heart and chronic kidney disease with heart failure and stage 1 through stage 4 chronic kidney disease, or unspecified chronic kidney disease; N39.0 Urinary tract infection, site not specified; I5A Non-ischemic myocardial injury (non-traumatic); Z66 Do not resuscitate; I25.10 Atherosclerotic heart disease of native coronary artery without angina pectoris; K21.9 Gastro-esophageal reflux disease without esophagitis; G25.81 Restless legs syndrome; I48.0 Paroxysmal atrial fibrillation; D86.9 Sarcoidosis, unspecified; N18.30 Chronic kidney disease, stage 3 unspecified; D64.9 Anemia, unspecified; E87.6 Hypokalemia; E78.5 Hyperlipidemia, unspecified; M19.90 Unspecified osteoarthritis, unspecified site; G62.9 Polyneuropathy, unspecified; D50.9 Iron deficiency anemia, unspecified; Z86.718 Personal history of other venous thrombosis and embolism; Z98.42 Cataract extraction status, left eye; Z98.41 Cataract extraction status, right eye; Z79.82 Long term (current) use of aspirin; Z79.01 Long term (current) use of anticoagulants; K59.00 Constipation, unspecified; F32.A Depression, unspecified; N32.81 Overactive bladder; B96.1 Klebsiella pneumoniae [K. pneumoniae] as the cause of diseases classified elsewhere
CPT/HCPCS: 36415; 36600; 71045; 71275; 80048; 80053; 81001; 82728; 82805; 83605; 83615; 83735; 83880; 84100; 84132; 84145; 84484; 85025; 85380; 85610; 85730; 86140; 87040; 87077; 87081; 87086; 87088; 87186; 92610; 93005; 93970; 94002; 94640; 96365; 96366; 96375; 97165; 99291; A9270; J0131; J0743; J1100; J1335; J1940; J2060; J2270; J2543; J3370; J3480; J7030; J7060; Q9967